=== PATIENT | male | born 1940 | race Caucasian/White ===

== ENCOUNTER 2017-01-10 17:44 | Emergency (ER) | payer MEDICARE, MEDICAID ==
[2017-01-10 17:50] VITALS: BP 126/60
--- NOTE | 2017-01-10 17:57 | UC ---
Back Pain HPI - HPI Summary HPI Summary: 76 YEAR OLD FEMALE PRESENTS WITH COMPLAINS RIGHT UPPER BACK SPASM . - History of Current Complaint Chief Complaint: UCBackPain Stated Complaint: BACK PAIN Time Seen by Provider: 01/10/17 17:52 - Allergies/Home Medications Allergies/Adverse Reactions: Allergies Allergy/AdvReac Type Severity Reaction Status Date / Time No Known Allergies Allergy Verified 02/09/16 18:35 PMH/Surg Hx/FS Hx/Imm Hx - Surgical History Surgical History: Yes Surgery Procedure, Year, and Place: CABGX3 1983. GALLBLADDER SURGERY 1994? [facility] [place]. PACEMAKER 2010 [facility] [place]. TURBT 2011 [facility] [place] - Family History Known Family History: Positive: Cardiac Disease - Social History Alcohol Use: None Substance Use Type: None Smoking Status (MU): Former Smoker Type: Cigarettes Amount Used/How Often: 10 CIGS DAILY X 20 YEARS When Did the Patient Quit Smoking/Using Tobacco: 1979 Review of Systems Constitutional: Negative Skin: Negative Eyes: Negative ENT: Negative Respiratory: Negative Cardiovascular: Negative Gastrointestinal: Negative Genitourinary: Negative Motor: Negative Neurovascular: Negative Musculoskeletal: Myalgia, Other: - RIGHT UPPER BACK SPASM Neurological: Negative Psychological: Negative All Other Systems Reviewed And Are Negative: Yes Physical Exam Triage Information Reviewed: Yes Vital Signs: Initial Vital Signs Temp 36.8 C 01/10/17 17:47 Pulse 70 01/10/17 17:47 Resp 18 01/10/17 17:47 BP 126/60 01/10/17 17:47 Pulse Ox 98 01/10/17 17:47 Eye Exam: Normal ENT Exam: Normal Dental Exam: Normal Neck exam: Normal Neck: Positive: 1 Respiratory Exam: Normal Cardiovascular Exam: Normal Abdominal Exam: Normal Musculoskeletal: Positive: Other: - RIGHT UPPER BACK PAIN Neurological Exam: Normal Psychological Exam: Normal Skin Exam: Normal Back Pain Course/Dx - Differential Dx/Diagnosis Provider Diagnoses: RIGHT UPPER BACK SPASM Discharge - Discharge Plan Condition: Stable Disposition: HOME Prescriptions: Meloxicam [Mobic] 7.5 mg PO BID PC #30 tab Methocarbamol TAB* [Robaxin 500 MG TAB*] 500 mg PO TID PRN #30 tab PRN Reason: Spasms - Back Patient Education Materials: Muscle Spasm (ED) Referrals: Matt Sanchez MD [Primary Care Provider] - If Needed
== END 2017-01-10 18:04 | disposition home or self-care (01) ==
LOC: UCEAST 17:44
DX: M62.830 Muscle spasm of back (principal); Z87.891 Personal history of nicotine dependence
CPT/HCPCS: 99212; G0463

== ENCOUNTER 2017-04-25 02:27 | Emergency (ER) | payer MEDICARE, MEDICAID ==
[2017-04-25 04:01] LABS: Mean Platelet Volume 9 um3 (7.4-10.4)
[2017-04-25 04:04] LABS: Hematocrit 38 % (42-52); Hemoglobin 12.5 g/dl (14.0-18.0); Mean Corpuscular HGB Conc 33 g/dl (31-36); Mean Corpuscular Hemoglobin 30 pg (27-31); Mean Corpuscular Volume 89 fL (80-94); Red Blood Count 4.23 10^6/ul (4.0-5.4); Red Cell Distribution Width 14 % (10.5-15); White Blood Count 5.9 10^3/ul (3.5-10.8)
[2017-04-25 04:05] LABS: Comments Flag Yes
[2017-04-25 04:06] LABS: Add Diff/Slide Review? Slide Review Added
[2017-04-25 04:11] LABS: BUN/Creatinine Ratio 21.2 (8-20); Calcium 9.7 mg/dL (8.6-10.3); EGFR African American 112.7 (>60); EGFR Non-African American 87.6 (>60); Globulin 3.6 g/dL (2-4); Potassium 3.8 mmol/L (3.5-5.0); Total Bilirubin 0.4 mg/dL (0.2-1.0); Total Protein 7.6 g/dL (6.4-8.9)
[2017-04-25 05:12] LABS: Troponin I 0.02 ng/mL (<0.04)
[2017-04-25] MEDS ORDERED: Potassium Chlor TAB* 20 MEQ TAB.ER PO ONE (05:30)
[2017-04-25 06:02] VITALS: BP 155/64
--- NOTE | 2017-04-25 08:25 | RAD ---
HISTORY: Discharging defibrillator COMPARISONS: February 09, 2016 VIEWS: 1: frontal portable view of the chest at 3:15 AM FINDINGS: LINES AND TUBES: A left-sided AICD pacer is noted. CARDIOMEDIASTINAL SILHOUETTE: The cardiomediastinal silhouette is normal for portable technique. PLEURA: The costophrenic angles are sharp. No pleural abnormalities are noted. LUNG PARENCHYMA: The lungs are clear. ABDOMEN: The upper abdomen is clear. There is no subphrenic gas. BONES AND SOFT TISSUES: The patient is status post median sternotomy. IMPRESSION: NO ACTIVE CARDIOPULMONARY DISEASE.
--- NOTE | 2017-05-05 10:48 | ED ---
Beverly Roque Jason, scribed for Romero Britt MD on 04/25/17 at 0300 . Shortness of Breath - HPI Summary HPI Summary: This patient is a 76 year old M BIBA to [facility] with a chief complaint of SOB since 1 hour ago today. The patient reports The pacemaker alarm in my heart went off and I was not feeling well yesterday. My arms felt weak. Rema had this feeling before and its usually associated to problems with the heart. The patient rates the pain 0/10 in severity. Symptoms aggravated by nothing. Symptoms alleviated by nothing. Patient reports generalized weakness, and an alarmed pacemaker. Patient denies ankle swelling, and kidney problems. Additionally, the pt states his pacemaker was placed in August, he has an Hx of DM and takes 30/70 insulin once a day, and his blood sugar is normally 140 or 150. He includes that his alarm has gone off only once around 3 months ago and the doctor advised him to visit [facility] if it alarmed again. Pt speaks little Czech and communicated sx to remote Serbian rn field case manager. - History of Current Complaint Chief Complaint: EDChestPainROMI Time Seen by Provider: 04/25/17 02:40 Hx Obtained From: Patient Onset/Duration: Gradual Onset, Still Present Timing: Constant Aggrevating Factors: Nothing Alleviating Factors: Nothing Associated Signs & Symptoms: Negative - Ankle swelling - Allergy/Home Medications Allergies/Adverse Reactions: Allergies Allergy/AdvReac Type Severity Reaction Status Date / Time No Known Allergies Allergy Verified 02/09/16 18:35 PMH/Surg Hx/FS Hx/Imm Hx Previously Healthy: No Endocrine/Hematology History: Reports: Hx Diabetes, Hx Thyroid Disease - HYPO AFTER RADIATION FOR GRAVES Cardiovascular History: Reports: Hx Coronary Artery Disease - CABGX3 1983, Hx Hypertension, Hx Pacemaker/ICD, Other Cardiovascular Problems/Disorders - PACEMAKER Denies: Hx Angina, Hx Congestive Heart Failure Respiratory History: Denies: Hx Asthma, Hx Chronic Obstructive Pulmonary Disease (COPD) GI History: Reports: Other GI Disorders - ABD. PAIN History: Reports: Other Problems/Disorders - BLADDER CANCER Denies: Hx Renal Disease Sensory History: Reports: Hx Cataracts - BILAT., Hx Contacts or Glasses - GLASSES Denies: Hx Hearing Aid Opthamlomology History: Reports: Hx Cataracts - BILAT., Hx Contacts or Glasses - GLASSES Neurological History: Denies: Hx Dementia, Hx Seizures Psychiatric History: Denies: Hx Anxiety, Hx Depression, Hx Substance Abuse - Cancer History Cancer Type, Location and Year: BLADDER - Surgical History Surgery Procedure, Year, and Place: CABGX3 1983. GALLBLADDER SURGERY 1994? [facility] [place] PACEMAKER 2010 [facility] [place]. TURBT 2012 [facility] [place] Hx Anesthesia Reactions: No - Immunization History Date of Tetanus Vaccine: unk Date of Influenza Vaccine: 2017 Infectious Disease History: Unable to Obtain/Confirm Infectious Disease History: Denies: Hx Hepatitis, Hx Human Immunodeficiency Virus (HIV), History Other Infectious Disease, Traveled Outside the in Last 30 Days - Family History Known Family History: Positive: Cardiac Disease Negative: Blood Disorder - Social History Occupation: Retired Lives: With Family Alcohol Use: None Substance Use Type: Reports: None Smoking Status (MU): Former Smoker Type: Cigarettes Amount Used/How Often: 10 CIGS DAILY X 20 YEARS Review of Systems Positive: Shortness Of Breath Musculoskeletal: Negative - pedal edema Positive: Weakness - Generalized All Other Systems Reviewed And Are Negative: Yes Physical Exam - Summary Physical Exam Summary: Appearance: Well-appearing, Well-nourished Skin: Warm, Dry, No rash Eyes: Normal, PERRL, EOMI, sclera anicteric, Conjunctiva pallor, mild exophthalmos ENT: Normal, no JVD noted Neck: Supple, nontender Respiratory: Clear to auscultation Cardiovascular: S1, S2, no murmur, no rub, no gallop Abdomen: Soft, nontender, no organomegaly Bowel sounds: Present Musculoskeletal: Normal, Strength/ROM Intact, no edema, pulses symmetrical Neurological: Normal, A&Ox3, cranial nerves 2-12 wnl, follows commands, gait not tested, sensation intact to pin and light touch Psychiatric: affect normal, behavior appropriate, dressed appropriately, judgment intact, answers questions fluently in swedish. Triage Information Reviewed: Yes Vital Signs On Initial Exam: Appearance: Well-appearing, Well-nourished Skin: Warm, Dry, No rash Eyes: Normal, PERRL, EOMI, sclera anicteric ENT: Normal Neck: Supple, nontender Respiratory: Clear to auscultation Cardiovascular: S1, S2, no murmur, no rub, no gallop Abdomen: Soft, nontender, no organomegaly Bowel sounds: Present Musculoskeletal: Normal, Strength/ROM Intact, no edema, pulses symmetrical Neurological: Normal, A&Ox3, cranial nerves 2-12 wnl, follows commands, gait not tested, sensation intact to pin and light touch Psychiatric: affect normal, behavior appropriate, dressed appropriately, judgment intact Initial Vitals Temp Pulse Resp BP Pulse Ox 97.5 F 69 16 143/74 97 04/25/17 02:29 04/25/17 02:29 04/25/17 02:29 04/25/17 02:29 04/25/17 02:29 Vital Signs Reviewed: Yes - Parkin Coma Scale Coma Scale Total: 15 Diagnostics - Vital Signs Vital Signs Temp Pulse Resp BP Pulse Ox 04/25/17 02:29 97.5 F 69 16 143/74 97 - Laboratory Lab Results: Lab Results 04/25/17 04/25/17 04/25/17 Range/Units 03:21 03:35 03:35 WBC 5.9 (3.5-10.8) 10^3/ul RBC 4.23 (4.0-5.4) 10^6/ul Hgb 12.5 L (14.0-18.0) g/dl Hct 38 L (42-52) % MCV 89 (80-94) fL MCH 30 (27-31) pg MCHC 33 (31-36) g/dl RDW 14 (10.5-15) % Plt Count 140 L (150-450) 10^3/ul MPV 9 (7.4-10.4) um3 Neut % (Auto) 39.6 (38-83) % Lymph % (Auto) 28.3 (25-47) % Page % (Auto) 29.4 H (1-9) % Eos % (Auto) 1.9 (0-6) % Baso % (Auto) 0.8 (0-2) % Absolute Neuts (auto) 2.3 (1.5-7.7) 10^3/ul Absolute Lymphs (auto) 1.7 (1.0-4.8) 10^3/ul Absolute Monos (auto) 1.7 H (0-0.8) 10^3/ul Absolute Eos (auto) 0.1 (0-0.6) 10^3/ul Absolute Basos (auto) 0 (0-0.2) 10^3/ul Absolute Nucleated RBC 0.01 10^3/ul Nucleated RBC % 0.1 Sodium 138 (133-145) mmol/L Potassium 3.8 (3.5-5.0) mmol/L Chloride 105 (101-111) mmol/L Carbon Dioxide 26 (22-32) mmol/L Anion Gap 7 (2-11) mmol/L BUN 18 (6-24) mg/dL Creatinine 0.85 (0.67-1.17) mg/dL Est GFR ( Amer) 112.7 (>60) Est GFR (Non-Af Amer) 87.6 (>60) BUN/Creatinine Ratio 21.2 H (8-20) Glucose 49 L (70-100) mg/dL POC Glucose (mg/dL) 56 L (70-100) mg/dL Calcium 9.7 (8.6-10.3) mg/dL Total Bilirubin 0.40 (0.2-1.0) mg/dL AST 15 (13-39) U/L ALT 18 (7-52) U/L Alkaline Phosphatase 80 (34-104) U/L Troponin I 0.02 (<0.04) ng/mL Total Protein 7.6 (6.4-8.9) g/dL Albumin 4.0 (3.2-5.2) g/dL Globulin 3.6 (2-4) g/dL Albumin/Globulin Ratio 1.1 (1-3) 04/25/17 Range/Units 05:24 WBC (3.5-10.8) 10^3/ul RBC (4.0-5.4) 10^6/ul Hgb (14.0-18.0) g/dl Hct (42-52) % MCV (80-94) fL MCH (27-31) pg MCHC (31-36) g/dl RDW (10.5-15) % Plt Count (150-450) 10^3/ul MPV (7.4-10.4) um3 Neut % (Auto) (38-83) % Lymph % (Auto) (25-47) % Page % (Auto) (1-9) % Eos % (Auto) (0-6) % Baso % (Auto) (0-2) % Absolute Neuts (auto) (1.5-7.7) 10^3/ul Absolute Lymphs (auto) (1.0-4.8) 10^3/ul Absolute Monos (auto) (0-0.8) 10^3/ul Absolute Eos (auto) (0-0.6) 10^3/ul Absolute Basos (auto) (0-0.2) 10^3/ul Absolute Nucleated RBC 10^3/ul Nucleated RBC % Sodium (133-145) mmol/L Potassium (3.5-5.0) mmol/L Chloride (101-111) mmol/L Carbon Dioxide (22-32) mmol/L Anion Gap (2-11) mmol/L BUN (6-24) mg/dL Creatinine (0.67-1.17) mg/dL Est GFR ( Amer) (>60) Est GFR (Non-Af Amer) (>60) BUN/Creatinine Ratio (8-20) Glucose (70-100) mg/dL POC Glucose (mg/dL) 202 H (70-100) mg/dL Calcium (8.6-10.3) mg/dL Total Bilirubin (0.2-1.0) mg/dL AST (13-39) U/L ALT (7-52) U/L Alkaline Phosphatase (34-104) U/L Troponin I (<0.04) ng/mL Total Protein (6.4-8.9) g/dL Albumin (3.2-5.2) g/dL Globulin (2-4) g/dL Albumin/Globulin Ratio (1-3) Result Diagrams: 04/25/17 03:35 04/25/17 03:35 Lab Statement: Any lab studies that have been ordered have been reviewed, and results considered in the medical decision making process. - Radiology CXR Radiology Interpretation Completed By: ED Physician - no significant findings. - EKG 0237 Cardiac Rate: NL EKG Rhythm: Sinus Rhythm - [address] Segment: Normal Ectopy: None EKG Interpretation: paced rhythm Course/Dx - Course Course Of Treatment: This patient is a 76 year old M BIBA to [facility] with a chief complaint of SOB since 1 hour ago today. The patient reports The pacemaker alarm in my heart went off and I was not feeling well yesterday. My arms felt weak. Rema had this feeling before and its usually associated to problems with the heart. The patient rates the pain 0/10 in severity. Symptoms aggravated by nothing. Symptoms alleviated by nothing. Patient reports generalized weakness, and an alarmed pacemaker. Patient denies ankle swelling, and kidney problems. Additionally, the pt states his pacemaker was placed in August, he has an Hx of DM and takes 30/70 insulin once a day, and his blood sugar is normally 140 or 150. He includes that his alarm has gone off only once around 3 months ago and the doctor advised him to visit [facility] if it alarmed again. Pt speaks little Czech and communicated sx to remote Serbian rn field case manager. Assessment/Plan: In the ED course the patient was given Potassium Chloride tab. The pt. has hx of recurrent ventricular tachycardia and the pacemaker is functioning normally, with the alarm secondary to adequate transmission. We spoke with [employer], who makes the pacemaker, and they said an alarm went off at 0130 signaling ventricular tachycardia but the pacemaker is working normally. An EKG reveals cardiac rate of 70 bpm and a paced rhythm. CXR reveals no significant findings. Patient will be discharged and follow up with PCP. The patient is agreeable with this plan. Dx of hypoglycemia. - Diagnoses Provider Diagnoses: ICD (implantable cardioverter-defibrillator) discharge Discharge - Discharge Plan Condition: Good Disposition: HOME Patient Education Materials: Hypoglycemia in a Person with Diabetes (ED) Referrals: Matt Sanchez MD [Primary Care Provider] - Additional Instructions: ad zain The documentation as recorded by the Beverly etienne Jason accurately reflects the service I personally performed and the decisions made by me, Romero Britt MD.
== END 2017-04-25 06:28 | disposition home or self-care (01) ==
LOC: ED 02:27
DX: T82.198A Other mechanical complication of other cardiac electronic device, initial encounter (principal); R06.02 Shortness of breath; R53.1 Weakness; Z87.891 Personal history of nicotine dependence
CPT/HCPCS: 36415; 71010; 80053; 84484; 85025; 93005; 99283; A9270-GY

== ENCOUNTER 2018-07-04 18:01 | Observation (INO) | payer MEDICARE, MEDICAID ==
[2018-07-04] MEDS ORDERED: Aspirin 81 mg CHEW TAB* 81 MG TAB.CHEW PO ONE (18:23)
[2018-07-04] MEDS ORDERED: Nitroglycerin TAB 0.4 MG* 0.4 MG TAB SL ONE (18:57)
--- NOTE | 2018-07-04 19:25 | ED ---
HPI Chest Pain - HPI Summary HPI Summary: Patient complains of left-sided chest pain radiating to back and left shoulder starting yesterday. He describes pain as constant, new onset, occurring at rest. Denies symptoms with exertion. Originally 9/10 pain, currently 4/10 pain. Patient denies fever, cough, SOB, N/V/D, abdominal pain, change in urine , change in BM. Medical history is DM, CHF, PR, defibrillator, cardiac bypass surgery, pacemaker, HTN, thyroid cancer, BPH, GERD. Patient product marketing director Dr. Rivas, last evaluated around 3 months ago. Patient does not know when last stress test was. No stress test on file. - History of Current Complaint Chief Complaint: EDChestPainROMI Time Seen by Provider: 07/04/18 18:18 Hx Obtained From: Patient Onset/Duration: Started Days Ago Timing: Constant Initial Severity: Severe Current Severity: Moderate Pain Intensity: 4 Pain Scale Used: 0-10 Numeric Chest Pain Location: Left Anterior Chest Pain Radiates: Yes Chest Pain Radiates To:: Back, Shoulder Aggravating Factor(s): Nothing Alleviating Factor(s): Nothing Associated Signs and Symptoms: Positive: Chest Pain, Back Pain - Allergy/Home Medications Allergies/Adverse Reactions: Allergies Allergy/AdvReac Type Severity Reaction Status Date / Time No Known Allergies Allergy Verified 02/09/16 18:35 PMH/Surg Hx/FS Hx/Imm Hx Endocrine/Hematology History: Reports: Hx Diabetes, Hx Thyroid Disease - HYPO AFTER RADIATION FOR GRAVES Cardiovascular History: Reports: Hx Coronary Artery Disease - CABGX3 1983, Hx Hypertension, Hx Pacemaker/ICD, Other Cardiovascular Problems/Disorders - PACEMAKER Denies: Hx Angina, Hx Congestive Heart Failure Respiratory History: Denies: Hx Asthma, Hx Chronic Obstructive Pulmonary Disease (COPD) GI History: Reports: Other GI Disorders - ABD. PAIN History: Reports: Other Problems/Disorders - BLADDER CANCER Denies: Hx Renal Disease Sensory History: Reports: Hx Cataracts - BILAT., Hx Contacts or Glasses - GLASSES Denies: Hx Hearing Aid Opthamlomology History: Reports: Hx Cataracts - BILAT., Hx Contacts or Glasses - GLASSES Neurological History: Denies: Hx Dementia, Hx Seizures Psychiatric History: Denies: Hx Anxiety, Hx Depression, Hx Substance Abuse - Cancer History Cancer Type, Location and Year: BLADDER - Surgical History Surgery Procedure, Year, and Place: CABGX3 1983. GALLBLADDER SURGERY 1994? [facility] [place]. PACEMAKER 2010 [facility] [place]. TURBT 2012 [facility] [place] Hx Anesthesia Reactions: No - Immunization History Date of Tetanus Vaccine: unk Date of Influenza Vaccine: 2016 Infectious Disease History: No Infectious Disease History: Denies: Hx Hepatitis, Hx Human Immunodeficiency Virus (HIV), History Other Infectious Disease, Traveled Outside the [place] in Last 30 Days - Family History Known Family History: Positive: Cardiac Disease Negative: Blood Disorder - Social History Alcohol Use: None Substance Use Type: Reports: None Smoking Status (MU): Former Smoker Type: Cigarettes Amount Used/How Often: 10 CIGS DAILY X 20 YEARS Review of Systems Constitutional: Negative Positive: Photophobia ENT: Negative Positive: Chest Pain Respiratory: Negative Gastrointestinal: Negative Genitourinary: Negative Musculoskeletal: Negative Skin: Negative Neurological: Negative Psychological: Normal All Other Systems Reviewed And Are Negative: Yes Physical Exam - Summary Physical Exam Summary: Chest pain nonreproducible. Triage Information Reviewed: Yes Vital Signs On Initial Exam: Initial Vitals Temp Pulse Resp BP Pulse Ox 97.7 F 70 16 153/75 97 07/04/18 18:09 07/04/18 18:09 07/04/18 18:09 07/04/18 18:09 07/04/18 18:09 Vital Signs Reviewed: Yes Appearance: Positive: Well-Appearing Skin: Positive: Warm Head/Face: Positive: Normal Head/Face Inspection Eyes: Positive: Normal Neck: Positive: Supple Respiratory/Lung Sounds: Positive: Clear to Auscultation Cardiovascular: Positive: Normal Abdomen Description: Positive: Nontender Musculoskeletal: Positive: Normal Neurological: Positive: Normal Psychiatric: Positive: Normal AVPU Assessment: Alert - Phil Coma Scale Best Eye Response: 4 - Spontaneous Best Motor Response: 6 - Obeys Commands Best Verbal Response: 5 - Oriented Coma Scale Total: 15 Diagnostics - Vital Signs Vital Signs Temp Pulse Resp BP Pulse Ox 07/04/18 18:10 70 96 07/04/18 18:09 97.7 F 71 16 153/75 97 - Laboratory Result Diagrams: 07/04/18 19:51 07/04/18 19:51 Lab Statement: Any lab studies that have been ordered have been reviewed, and results considered in the medical decision making process. Chest Pain Course/Dx - Course Course Of Treatment: Patient complains of left-sided chest pain radiating to back and left shoulder starting yesterday. He describes pain as constant, new onset, occurring at rest. Denies symptoms with exertion. Originally 9/10 pain , currently 4/10 pain. Patient denies fever, cough, SOB, N/V/D, abdominal pain , change in urine, change in BM. Medical history is DM, CHF, PR, defibrillator , cardiac bypass surgery, pacemaker, HTN, thyroid cancer, BPH, GERD. Patient product marketing director Dr. Rivas, last evaluated around 3 months ago. Patient does not know when last stress test was. No stress test on file. Physical exam: Chest pain not reproducible. Vital signs within normal limits. EKG paced rhythm. Chest x-ray unremarkable. Labs unremarkable. Serial troponins negative. CTA chest negative. Chest pain self resolved. Heart score 4. Will be admitted to hospitalist. - Diagnoses Provider Diagnoses: Chest pain Discharge - Sign-Out/Discharge Documenting (check all that apply): Patient Departure - Discharge Plan Condition: Stable Disposition: ADMITTED TO [facility] - Billing Disposition and Condition Condition: STABLE Disposition: Admitted to [facility]
[2018-07-04 20:01] LABS: Hematocrit 37 % (42-52); Hemoglobin 12.1 g/dl (14.0-18.0); Mean Corpuscular HGB Conc 33 g/dl (31-36); Mean Corpuscular Hemoglobin 30 pg (27-31); Mean Corpuscular Volume 89 fL (80-94); Mean Platelet Volume 8.9 fL (7.4-10.4); Platelet Count 112 10^3/ul (150-450); Red Blood Count 4.11 10^6/ul (4.00-5.40); Red Cell Distribution Width 14 % (10.5-15)
[2018-07-04 20:16] LABS: Activated Partial Thrombo Time 33.3 seconds (26.0-36.3); INR 1.15 (0.77-1.02)
[2018-07-04 20:20] LABS: Albumin 3.8 g/dL (3.2-5.2); BUN/Creatinine Ratio 30.4 (8-20); Calcium 9.6 mg/dL (8.6-10.3); EGFR Non-African American 79.8 (>60); Globulin 3.7 g/dL (2-4); Magnesium 2.1 mg/dL (1.9-2.7); Potassium 4.3 mmol/L (3.5-5.0); Total Bilirubin 0.4 mg/dL (0.2-1.0); Total Protein 7.5 g/dL (6.4-8.9)
[2018-07-04] MEDS ORDERED: Iodixanol* (CONTRAST) 320 MG/ML 100 ML SDV IV ONE (20:28)
[2018-07-04 20:59] LABS: ABS Basophils 0 10^3/ul (0-0.2); ABS Eosinophils 0.1 10^3/ul (0-0.6); ABS Lymphocytes 1.6 10^3/ul (1.0-4.8); ABS Monocytes 2.1 10^3/ul (0-0.8); ABS Neutrophils 2.2 10^3/ul (1.5-7.7); ABS Nucleated RBC 0 10^3/ul; Eosinophil % 1.5 %; Lymphocyte % 27.1 %; Nucleated Red Blood Cells % 0.1
[2018-07-04 21:05] LABS: TSH (Thyroid Stimulating Horm) 1.28 mcIU/mL (0.34-5.60)
[2018-07-05] MEDS ORDERED: Nitroglycerin TAB 0.4 MG* 0.4 MG TAB SL PRN (00:57)
[2018-07-05] MEDS ORDERED: INSULIN REGULAR SUBCUT SCH (01:00)
[2018-07-05] MEDS ORDERED: INSULIN ISOPHANE SUBCUT SCH (01:00)
--- NOTE | 2018-07-05 01:07 | ADMNOTE ---
Subjective Date of Service: 07/05/18 Interval History: 77 year old Male with past medical history of coronary artery disease with CABG , pacemaker, Diabetes, who now comes to the emergency room because of chest pain. Chest pain started more than 24 hours ago, described as substernal dull ache, 4/10. It started at rest, with no exacerbating or relieving factors. Pain went away on its own. There is no associated diaphoresis, no shortness of breath , no palpitatons. No fever, no cough. Family History: Findings - Heart disease in multiple members Social History: Findings - Lives at home, does not drink alcohol, former smoker Past Medical History: Findings - Coronary arterey disease with CABG, pacemaker, Diabetes, Hypothyroidism, Surgeries include CABG, cholecystecotmy, eye surgery Review of Systems - Measurements Intake and Output: Intake and Output Last 24 Hours 07/02/18 07/03/18 07/04/18 07/05/18 06:59 06:59 06:59 06:59 Weight 165 lb - Review of Systems Constitutional Symptoms: Negative: Fatigue, Fever, Night Sweats HEENT: Negative: Change in Hearing, Dental Problems Eyes: Negative: Change in Vision, Double Vision Thyroid: Positive: Normal Pulmonary: Negative: Cough, Sputum, Wheezing, Shortness of Breath Cardiology: Positive: Chest Pain Negative: Palpitations, Edema, Syncope Gastroenterology: Negative: Abdominal Pain, Nausea, Vomiting Genital - Urinary: Negative: Dysuria, Hematuria Genitourinary - Male: Positive: Prostatism Endocrinology: Negative: Polydipsia, Polyuria Hematologic/Lymphatic: Negative: Easy Brusing Neurology: Negative: Headache, Migraines, Change in Vision Psychiatry: Negative: Depression, Depressed Mood Objective Active Medications: Aspirin (Aspirin 81 Mg Chew Tab*) 81 mg PO DAILY [facility] Atorvastatin Calcium (Lipitor*) 20 mg PO DAILY [facility] Carvedilol (Coreg Tab*) 25 mg PO BID [facility] Enoxaparin Sodium (Lovenox(*)) 40 mg SUBCUT Q24H [facility] Finasteride (Proscar Tab*) 5 mg PO DAILY [facility] Losartan Potassium (Cozaar Tab*) 25 mg PO DAILY [facility] Nitroglycerin (Nitroglycerin Tab 0.4 Mg*) 0.4 mg SL Q5M PRN PRN Reason: PAIN Non-Formulary Medication (Famotidine [Pepcid]) 40 mg PO BID [facility] Non-Formulary Medication (Insulin Isophane&Reg 70/30(*) [Novolin 70/30(*)]) 40 units SUBCUT SEE INSTRUCTIONS [facility] Non-Formulary Medication (Levothyroxine Sodium [Levothyroxine Sodium]) 112 mcg PO QAM [facility] Tamsulosin HCl (Flomax Cap*) 0.4 mg PO DAILY [facility] Vital Signs - 8 hr 07/04/18 07/04/18 07/04/18 18:09 18:10 18:39 Temperature 97.7 F Pulse Rate 71 70 Respiratory 16 15 Rate Blood Pressure 153/75 142/76 (mmHg) O2 Sat by Pulse 97 96 Oximetry 07/04/18 07/04/18 07/04/18 19:00 19:10 19:40 Temperature Pulse Rate Respiratory 23 31 20 Rate Blood Pressure 134/82 144/102 (mmHg) O2 Sat by Pulse Oximetry 07/04/18 07/04/18 07/04/18 20:00 20:09 21:00 Temperature Pulse Rate 70 Respiratory 23 23 20 Rate Blood Pressure 142/96 (mmHg) O2 Sat by Pulse 98 Oximetry 07/04/18 07/04/18 07/04/18 21:10 21:40 22:00 Temperature Pulse Rate 70 70 70 Respiratory 14 18 16 Rate Blood Pressure 150/81 148/87 (mmHg) O2 Sat by Pulse 97 98 98 Oximetry 07/04/18 07/04/18 07/04/18 22:10 22:23 22:40 Temperature Pulse Rate 70 70 70 Respiratory 22 15 15 Rate Blood Pressure 141/83 148/83 (mmHg) O2 Sat by Pulse 97 97 97 Oximetry 07/04/18 07/04/18 07/04/18 23:00 23:10 23:40 Temperature Pulse Rate 67 70 Respiratory 21 19 23 Rate Blood Pressure 142/76 154/88 (mmHg) O2 Sat by Pulse 96 96 Oximetry 07/05/18 07/05/18 07/05/18 00:00 00:10 00:40 Temperature Pulse Rate 70 70 Respiratory 17 18 20 Rate Blood Pressure 149/80 142/82 (mmHg) O2 Sat by Pulse 98 98 Oximetry Oxygen Devices in Use Now: None Appearance: Elderly male lying in ED stretcher, not in distress Eyes: PERRLA - no nystagmus Ears/Nose/Mouth/Throat: Mucous Membranes Moist Respiratory: Clear to Auscultation - no wheezing/rales/rhonchi Cardiovascular: NL Sounds; No Murmurs; No JVD, RRR, No Edema, - - sternal scar noted, no chest wall tenderness Extremities: No Edema Neurological: Alert and Oriented x 3 Result Diagrams: 07/04/18 19:51 07/04/18 19:51 Diagnostic Imaging: EXAM: CT Angiography Chest With Contrast EXAM DATE/TIME: 07/04/2018 8:40 PM IMPRESSION: 1. There is bilateral mild subsegmental atelectasis or parenchymal scarring but the lungs and pleural spaces appear otherwise clear. 2. No visible acute pulmonary embolism. 3. No aortic dissection. To contact [facility] with a general question: [facility] - [phone] This report is only to be considered final once signed by the Provider(s) as displayed in the "<Electronically Signed by >" field (s). Absence of a signature indicates the report is in a draft status and still needs to be finalized. In the event this document was created by someone other than the signing Provider, the individual initiating the document will be listed in the "Entered by:" or "Dictated by:" [email or web address]. 1 of 2 EKG Data: paced rhythm Assess/Plan/Problems-Billing Assessment: 77 year old Male with history of cornoary artery disease with CABG, pacemaker, Diabetes here with chest pain. - Patient Problems (1) Chest pain Current Visit: Yes Status: Acute Code(s): R07.9 - CHEST PAIN, UNSPECIFIED SNOMED Code(s): 87981487 Comment: Chest pain with negative troponin X 2, EKG no acute ST-T changes. However high risk patient, will get ECHO, EKG in the AM, and 3rd troponin. continue statin, daily aspirin. (2) Diabetes Current Visit: Yes Status: Chronic Code(s): E11.9 - TYPE 2 DIABETES MELLITUS WITHOUT COMPLICATIONS SNOMED Code(s): 13073607 Comment: Continue home dose 70/30 at 40 units in the AM monitor fingersticks. (3) Hypothyroid Current Visit: Yes Status: Chronic Code(s): E03.9 - HYPOTHYROIDISM, UNSPECIFIED SNOMED Code(s): 04182984 Comment: continue levothyroxine (4) Sleep apnea Current Visit: Yes Status: Chronic Code(s): G47.30 - SLEEP APNEA, UNSPECIFIED SNOMED Code(s): 73767237 Comment: CPAP at 10, (5) BPH (benign prostatic hyperplasia) Current Visit: Yes Status: Chronic Code(s): N40.0 - BENIGN PROSTATIC HYPERPLASIA WITHOUT LOWER URINRY TRACT SYMP SNOMED Code(s): 604881273 Comment: continue flomax and finasteride (6) DVT prophylaxis Current Visit: Yes Status: Acute Code(s): WVW4033 - SNOMED Code(s): 874348200 Comment: SCD, Platelets 112, and patients needs aspirin for chest pain/hx of CAD Medications/Allergies Medications: Home Medications Medication Instructions Recorded Confirmed Type Finasteride TAB* [Proscar TAB*] 5 mg PO DAILY 06/18/12 07/04/18 History Insulin ISOPHANE&REG 70/30(*) 40 units SUBCUT SEE INSTRUCTIONS 06/18/12 History [Novolin 70/30(*)] Losartan TAB* [Cozaar TAB*] 25 mg PO DAILY 06/18/12 07/04/18 History Nitroglycerin TAB 0.4 MG* 0.4 mg SL Q5M PRN 06/18/12 07/04/18 History Tamsulosin CAP* [Flomax CAP*] 0.4 mg PO DAILY 06/18/12 07/04/18 History Carvedilol TAB* [Coreg TAB*] 25 mg PO BID 10/24/12 07/04/18 History Famotidine [Pepcid] 40 mg PO BID 05/24/14 07/04/18 History Levothyroxine Sodium 112 mcg PO QAM 05/24/14 07/04/18 History Atorvastatin* [Lipitor 20 MG*] 20 mg PO DAILY 11/07/15 07/04/18 History Allergies/Adverse Reactions: Allergies Allergy/AdvReac Type Severity Reaction Status Date / Time No Known Allergies Allergy Verified 02/09/16 18:35
[2018-07-05 02:45] LABS: Urine Color Yellow
[2018-07-05 02:46] LABS: Urine Appearance Clear
[2018-07-05 02:49] LABS: Urine Ketones Negative (Negative); Urine Urobilinogen Negative (Negative)
[2018-07-05 02:50] LABS: Urine Protein Negative (Negative)
[2018-07-05 02:51] LABS: Urine Blood Negative (Negative)
[2018-07-05 02:52] LABS: Urine Bilirubin Negative (Negative); Urine Glucose 1+(50 mg/dL) (Negative); Urine Nitrite Negative (Negative)
[2018-07-05] MEDS ORDERED: Levothyroxine TAB* 112 MCG TAB PO SCH (06:00)
[2018-07-05] MEDS ORDERED: Insulin ISOPH/REG 70/30 (*) 1 UNITS UNIT SUBCUT SCH (08:30)
[2018-07-05] MEDS ORDERED: Finasteride TAB* 5 MG PO SCH (09:00)
[2018-07-05] MEDS ORDERED: FAMOTIDINE 40 MG PO SCH (09:00)
[2018-07-05] MEDS ORDERED: Famotidine TAB* 20 MG PO SCH (09:00)
[2018-07-05] MEDS ORDERED: Losartan TAB* 25 MG PO SCH (09:00)
[2018-07-05] MEDS ORDERED: Aspirin 81 mg CHEW TAB* 81 MG TAB.CHEW PO SCH (09:00)
[2018-07-05] MEDS ORDERED: Enoxaparin(*) 40 MG/0.4 ML SYR SUBCUT SCH (09:00)
[2018-07-05] MEDS ORDERED: Carvedilol TAB* 25 MG PO SCH (09:00)
[2018-07-05] MEDS ORDERED: Tamsulosin CAP* 0.4 MG PO SCH (09:00)
[2018-07-05] MEDS ORDERED: Atorvastatin* 20 MG TAB PO SCH (09:00)
[2018-07-05] MEDS ORDERED: Dextrose 50% Syringe 50 ML* 25 GM/50 ML SYRINGE IV PUSH PRN (12:11)
[2018-07-05] MEDS ORDERED: Insulin LISPRO* 1 UNITS UNIT SUBCUT ONE (12:11)
[2018-07-05 12:15] VITALS: BP 120/55
--- NOTE | 2018-07-05 14:34 | ECHO ---
Patient: NESS ALTAMIRANO [facility] Rec#: [id number] : 1940 Date: 07/05/2018 Age: 77y Height: 165 cm / 65.0 in Weight: 74.8 kg / 164.9 lbs Sex: M BSA: 1.82 Room#: [facility] Admit Date#: 07/05/2018 Type: Inpatient Referring: Ivone Rubio Reading: Eyal Almonte MD Curtain Supervisor: Kay Hernandez RDCS CC: Matt Sanchez MD Transthoracic Echocardiogram Indication: Chest pain BP: 130/63 HR: 70 Rhythm: Paced Findings History: DM, CHF, [place], s/p AICD, s/p CABG 1983, HTN, thyroid cancer, former smoker. Technical Comments: The study quality is fair. Completed at 1100. Left Ventricle: The left ventricular chamber size is normal. Mild to moderate concentric left ventricular hypertrophy is observed. There are multiple regional wall motion abnormalities. There is moderate to severely decreased left ventricular systolic function. The estimated ejection fraction is 30-35%. Post surgical hypokinesis of the interventricular septum is observed consistent with coronary artery bypass. Abnormal left ventricular diastolic function is observed. Left Atrium: The left atrium is mildly dilated. Right Ventricle: Moderator Band present. The right ventricle is mildly dilated. The right ventricular global systolic function is low normal. A pacemaker wire is visualized in the right ventricle. Right Atrium: The right atrium is mild to moderately dilated. A pacemaker wire is visualized in the right atrium. Aortic Valve: The aortic valve is trileaflet. Mild aortic leaflet calcification is visualized. Systolic excursion of the aortic valve cusps is reduced. There is a trace of aortic regurgitation. There is borderline aortic stenosis present. The mean gradient of the aortic valve is 3 mmHg. The peak instantaneous gradient of the aortic valve is 7 mmHg. The aortic valve area, by peak velocities, is calculated at 2 cm2. The aortic valve area, by VTI's, is calculated at 1.8 cm2. Mitral Valve: There is mitral annular calcification. The mitral valve leaflets are mildly thickened. There is trace to mild mitral regurgitation. There is no evidence of mitral stenosis. Tricuspid Valve: The tricuspid valve leaflets are normal. There is trace to mild tricuspid regurgitation. Unable to estimate the right ventricular systolic pressure. There is no tricuspid stenosis. Pulmonic Valve: The pulmonic valve appears normal. There is trace to mild pulmonic regurgitation. There is no pulmonic stenosis. Pericardium: There is no significant pericardial effusion. Aorta: There is mild dilatation of the ascending aorta. There is no dilatation of the aortic arch. There is mild dilatation of the aortic root. Pulmonary Artery: The main pulmonary artery appears normal. Venous: The inferior vena cava appears normal in size. There is a greater than 50% respiratory change in the inferior vena cava dimension. Conclusions Mild to moderate concentric left ventricular hypertrophy is observed. There are multiple regional wall motion abnormalities. There is moderate to severely decreased left ventricular systolic function. The estimated ejection fraction is 30-35%. Post surgical hypokinesis of the interventricular septum is observed consistent with coronary artery bypass. The right ventricular global systolic function is low normal. A pacemaker wire is visualized in the right ventricle. A pacemaker wire is visualized in the right atrium. Systolic excursion of the aortic valve cusps is reduced. There is borderline aortic stenosis present. The mean gradient of the aortic valve is 3 mmHg. There is a trace of aortic regurgitation. There is trace to mild mitral regurgitation. There is trace to mild tricuspid regurgitation. Unable to estimate the right ventricular systolic pressure. There is no significant pericardial effusion. Measurements Name Value Normal Range RVIDd (AP) 2D 3.2 cm (0.9 - 2.6) RVDdMajor (2D) 4.8 cm (2.2 - 4.4) RAd ISD 4CH 5.5 cm (3.4 - 4.9) RA (A4C)W 4.2 cm (2.9 - 4.6) IVSd (2D) 1.3 cm (0.6 - 1) LVPWd (2D) 1.3 cm (0.6 - 1) LVIDd (2D) 4.8 cm (3.6 - 5.4) LVIDs (2D) 3.9 cm - LV FS (2D) 19 % (25 - 45) Aortic Annulus 2.2 cm (1.4 - 2.6) Ao root diameter (2D) 3.7 cm (2.1 - 3.5) Ascending Ao 3.8 cm (2.1 - 3.4) Aortic arch 2.9 cm (1.8 - 3.4) LA dimension (AP) 2D 3.9 cm (2.3 - 3.8) LAd ISD 4CH 5 cm (2.9 - 5.3) LA ISD 4CH W 4.9 cm (2.5 - 4.5) Name Value Normal Range LA ESV BP (A/L) index 38 ml/m2 - Name Value Normal Range MV E-wave Vmax 0.6 m/sec - MV deceleration time 324 msec - MV A-wave Vmax 0.8 m/sec - MV E:A ratio 0.8 ratio - LV septal e' Vmax 0.05 m/sec - LV lateral e' Vmax 0.07 m/sec - LV E:e' septal ratio 12 ratio - LV E:e' lateral ratio 8.6 ratio - Name Value Normal Range AV Vmax 1.4 m/sec - AV VTI 29 cm - AV peak gradient 7 mmHg - AV mean gradient 3 mmHg - LVOT diameter 2.1 cm - LVOT Vmax 0.8 m/sec - LVOT VTI 15 cm - LVOT peak gradient 2 mmHg - LVOT mean gradient 1 mmHg - DOI (VTI) 0.52 ratio - ENMA (continuity Vmax) 2 cm2 - ENMA (continuity VTI) 1.8 cm2 - WAI Vmax 0.7 m/sec - Name Value Normal Range IVC diameter 2 cm - Name Value Normal Range PV Vmax 1 m/sec - PV peak gradient 4 mmHg -
--- NOTE | 2018-07-05 20:01 | CONS ---
CARDIOLOGY CONSULTATION: DATE OF CONSULT: 07/05/18 INDICATION FOR CONSULTATION: Chest pain, ischemic cardiomyopathy. HISTORY OF PRESENT ILLNESS: The patient is a 77-year-old gentleman with a history of ischemic cardiomyopathy, coronary artery disease, ventricular tachycardia, biventricular ICD, paroxysmal atrial fibrillation. The patient was brought to the emergency room last night because of chest pain. The patient has poor Spanish skills. He speaks mostly [place]. By report, he has been having chest pain for 24 hours prior to admission, reportedly described as center of his chest that did not radiate anywhere. He denied any orthopnea or PND. The patient was admitted to the hospital. He ruled out for a myocardial infarction. In speaking with the patient today, he really has no specific complaints. He denies any current chest pain. He denies any shortness of breath. He has been taking his medications appropriately. PAST MEDICAL HISTORY: Significant for coronary artery disease, coronary artery bypass surgery in 1983, history of ischemic and nonischemic cardiomyopathy, biventricular ICD, paroxysmal atrial fibrillation, hypothyroidism. OUTPATIENT MEDICATIONS: 1. Coreg 25 mg daily. 2. Finasteride 5 mg a day. 3. Tamsulosin 0.4 mg a day. 4. Losartan 25 mg a day. 5. Aspirin 81 mg a day. 6. Atorvastatin 20 mg a day. 7. Levothyroxine 112 mcg a day. 8. Insulin as directed. 9. Famotidine 40 mg a day. ALLERGIES: No known drug allergies. FAMILY HISTORY: Difficult to obtain. SOCIAL HISTORY: He lives with his . He denies any tobacco or alcohol use. REVIEW OF SYSTEMS: Negative for fevers and chills. Negative for changes in bowel or bladder habits. Negative for change in weight. Other 12-point review is unremarkable. PHYSICAL EXAM: Vital Signs: Height is 5 feet 5 inches, weight is 167 pounds, temperature 97.7, heart rate is 70, blood pressure 120/55, respiratory rate is 16, oxygen saturation 97% on room air. Sclerae anicteric. Oropharynx is pink without erythema. Carotids are 2+ without bruits. JVD is normal. Thyroid is normal. Cardiac Exam: S1, S2, without any murmurs, rubs, or gallops. PMI is normal. Lungs are clear to auscultation. Extremities: Show 1+ edema. He has 2 + pulses throughout. The patient is awake, alert, and oriented. DIAGNOSTIC STUDIES/LAB DATA: His echocardiogram today demonstrates moderately to severely diffuse LV systolic function. EF 30% to 35%. No focal wall motion abnormalities. He does have mild aortic stenosis, mild mitral regurgitation, mild tricuspid regurgitation, unable to estimate PA systolic pressures. Laboratory Studies: CBC within normal limits. Chemistries within normal limits. Troponins are negative x3. TSH is normal at 1.28. EKG demonstrates ventricularly paced. IMPRESSION: This is a 77-year-old gentleman, who is admitted to the hospital with atypical chest pain. He is ruled out for a myocardial infarction. His echocardiogram is essentially unchanged. His laboratory studies are stable. This morning, he has no complaints. At this point, I am not convinced there is any significant change in his cardiac status. RECOMMENDATIONS: It is my recommendation the patient be discharged home. The patient will continue his outpatient medications. The patient will follow up with Dr. Rivas as an outpatient. [id number]/[facility] #: [id number] MTDD
--- NOTE | 2018-07-05 21:25 | DS ---
CC: Dr. Almonte; Dr. Rivas; Dr. Sanchez * DISCHARGE SUMMARY: DATE OF ADMISSION: 07/05/18 DATE OF DISCHARGE: 07/05/18 PRIMARY CARE PROVIDER: Dr. Sanchez. DISCHARGE DIAGNOSES: Chest pain, likely noncardiac origin with negative troponins throughout the patient's hospital stay. The patient also had CT angiogram of the chest, which showed no aortic dissection and no visible acute pulmonary embolism. PAST MEDICAL HISTORY: For past medical history, please note the history and physical noted at admission on 07/05/18. MEDICATIONS AT DISCHARGE: Unchanged from admission and include: 1. Flomax 0.4 mg daily. 2. Nitroglycerin on a p.r.n. basis. 3. Losartan 25 mg daily. 4. Levothyroxine 112 mcg daily. 5. Insulin 70/30, 40 units twice a day. 6. Proscar 5 mg daily. 7. Pepcid 40 mg b.i.d. 8. Coreg 25 mg b.i.d. 9. Lipitor 20 mg daily. LABORATORY DATA DURING THE HOSPITAL STAY: Included troponins had been 0.01 throughout the patient's hospital stay. Transthoracic echocardiogram obtained, on 07/05/18, showed [id number] concentric LVH with multiple regional wall motion abnormalities with moderate to severely decreased left ventricular systolic function with EF of 30% to 35%. There was post surgical hypokinesis of the interventricular septum consistent with coronary artery bypass grafting. Pacemaker wire was visualized in the right ventricle and right atrium. There was borderline aortic stenosis. CONSULTATIONS DURING THE HOSPITAL STAY: Included Dr. Almonte from Cardiology. HOSPITALIZATION COURSE: Steven Frias is a 77-year-old male with a history of ischemic cardiomyopathy, coronary artery bypass grafting, status post pacemaker insertion, who presented to the hospital complaining of some nonspecific chest pain. For further details of the patient's presentation, please see history and physical dictated by Dr. Rubio. Shortly by the time of discharge, the patient's pain resolved. The patient's troponins continued to be negative and he was seen by Dr. Almonte from Cardiology, who recommended for the patient to be okayed to be discharged home and follow up with Dr. Rivas as outpatient. The patient's transthoracic echocardiogram showed the baseline EF of 30% to 35%, which is known for this patient. Once again, the patient was chest pain free at the time of discharge. He is going to be discharged home. Recommendations were to follow up with Dr. Rivas in approximately 1 to 2 weeks and his primary care provider in 4 to 7 days. Physical exam at discharge is unchanged from admission. [id number]/[facility] #: [id number] SCOTTY
== END 2018-07-05 14:55 | disposition home or self-care (01) ==
LOC: ED 18:01 → MEDTELE 07-05 01:00
PROVIDERS: ADMIT Internal Medicine; ATTEND Internal Medicine
DX: R07.9 Chest pain, unspecified (principal); M54.9 Dorsalgia, unspecified; E11.9 Type 2 diabetes mellitus without complications; I25.2 Old myocardial infarction; Z95.0 Presence of cardiac pacemaker; I10 Essential (primary) hypertension; N40.0 Benign prostatic hyperplasia without lower urinary tract symptoms; K21.9 Gastro-esophageal reflux disease without esophagitis; Z85.850 Personal history of malignant neoplasm of thyroid; I25.10 Atherosclerotic heart disease of native coronary artery without angina pectoris; Z95.5 Presence of coronary angioplasty implant and graft; Z87.891 Personal history of nicotine dependence; Z79.82 Long term (current) use of aspirin
CPT/HCPCS: 36415; 71045; 71275; 80053; 81003; 83605; 83735; 83880; 84443; 84484; 85025; 85060; 85610; 85730; 93005; 93306; 99285; A9270-GY; G0378; J1815; Q9967

== ENCOUNTER 2018-09-13 11:22 | Emergency (ER) | payer MEDICARE, MEDICAID ==
--- OUTSIDE RECORDS SUMMARY | 2018-09-13 11:33 | XMS REPORT | Continuity of Care Document ---
:1940 External Reference #:[id number] Author Name Alba Fernandez Care Team Providers Name Role Phone Matt Barrera MD Primary Care Physician Unavailable Payers Date Identification Numbers Payment Provider Subscriber Effective: 2008 Policy Number: [id number] Medicare Steven Altamirano PayID: [id number] [address] [place] [address] Policy Number: [id number] Medicaid Steven Altamirano Group Name: 1 1 [address] PayID: [id number] [place] [address] Advance Directives Description No Information Available Problems Date Description Provider Status Onset: 03/22/2013 Chronic ischemic heart disease Madisyn Rivas M.D. Active Onset: 03/22/2013 Primary cardiomyopathy Madisyn Rivas M.D. Active Onset: 03/22/2013 Left bundle branch block Madisyn Rivas M.D. 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 Active other cause Onset: 08/15/2013 Congestive heart failure Madisyn Rivas M.D. 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 Active Onset: 08/15/2013 Cardiac pacemaker in situ Madisyn Rivas M.D. Active Onset: 06/16/2014 Paroxysmal ventricular tachycardia Madisyn Rivas M.D. Active Onset: 12/29/2014 Essential hypertension Madisyn Rivas M.D. Active Onset: 06/26/2015 Paroxysmal supraventricular Madisyn Rivas M.D. 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 Onset: 12/24/2017 Obstructive sleep apnea syndrome Radha Johnson DNP, RN, Active JUDGE CLERK-BC Onset: 12/24/2017 Hypoxemia Radha Johnson DNP, RN, Active JUDGE CLERK-BC Family History Date Family Member(s) Observation Comments Father due to Natural Causes () - 87 Mother due to Natural Causes () - 88 Siblings 7 4 sisters and 3 brothers Social History Type Date Description Comments Sex Unknown Marital Status Lives With Alone Occupation Retired Tobacco Use Start: Unknown End: Former Cigarette Smoker Smoked 1 ppd for 18 Unknown years Smoking Status Reviewed: 08/20/18 Former Cigarette Smoker Smoked 1 ppd for 18 years ETOH Use Rarely consumes alcohol Tobacco Use Start: Unknown End: Patient is a former from 1961 to 1979 Unknown smoker Recreational Drug Use Denies Drug Use Exercise Type/Frequency Exercises regularly walking 3-4 days a week, 3 miles each day. Allergies, Adverse Reactions, Alerts Description No Known Drug Allergies Medications Medication Date Status Form Strength Qnty SIG Indications Ordering Provider Carvedilol 07/30/ Active Tablets 12.5mg 180ta 1 by Madisyn 2018 bs mouth Rob, twice a M.D. day Sotalol HCL (AF) 07/30/ Active Tablets 80mg 90tab 06/16 tab I47.2 Madisyn 2018 s by mouth Rob, twice a M.D. day Finasteride / Active Tablets 5mg 90tab 1 po qd Unknown 0000 s Tamsulosin HCL / Active Capsules 0.4mg 1 po qd Unknown 0000 Losartan / Active Tablets 25mg 1 po qd Unknown Potassium 0000 Aspirin / Active Tablets DR 325mg 28tab take 1 by Unknown 0000 s mouth Levothyroxine / Active Tablets 112mcg 90tab 1 by Unknown Sodium 0000 s mouth every day Atorvastatin / Active Tablets 20mg 1 po qd Unknown Calcium 0000 Novolin 70/30 / Active 100Units/ inject 4o Unknown Relion 0000 ML units Am , depends in evening add 10- use directed Famotidine / Active Tablets 40mg 1 tablet [place], 0000 daily MD Matt Acetaminophen / Active Tablets 500mg 1 tablet Unknown 0000 po daily every 6 hours prn Clobetasol / Active applied Unknown Propionate 0000 to affected area as needed Coreg 03/21/ Hx Tablets 25mg 180ta 1 po Madisyn 2012 - daily [place], M.D. 2018 Nortriptyline 03/21/ Hx Capsules 25mg 60cap prn Madisyn HCL 2012 [place], M.D. 2013 Nitroglycerin 08/03/ Hx Patches 24HR 0.4mg/HR 30uni 1 patch Madisyn 2012 to chest [place], M.D. 2016 every day every evening ( PT Told Losartan 06/18/ Hx Tablets 50mg 30tab 1 po qd Madisyn Potassium 2012 [place], M.D. 2012 Spironolactone / Hx Tablets 25mg 30tab 1 po 3 Unknown 0000 - s days 07/18/ weekly, 2017 MWFr(Has stopped taking this ) Atorvastatin / Hx Tablets 40mg 90tab 1 po qd Unknown Calcium 0000 - s 2013 Tricor / Hx Tablets 145mg 90tab 1 po qd Unknown 0000 - s 2013 Humulin 70/30 / Hx Suspension (70-30)10 1Bott qd Unknown 0000 - 0Unit/ML le 2015 Omeprazole / Hx Capsules DR 20mg 90cap 1 po qd Unknown 0000 - s 2015 Methimazole / Hx Tablets 40mg 30tab Unknown 0000 - s 2013 Diphenoxylate-At / Hx 2-5-0.025 1 by Unknown rop 0000 - mouth bid 06/16/ prn for 2016 diarrhea Avodart / Hx Capsules 0.5mg 90cap 1 by Unknown 0000 - s mouth 03/19/ every day 2015 Carvedilol 00/ Hx Tablets 25mg 1 tablet Unknown 0000 - po twice 07/30/ daily 2019 Carvedilol / Hx 25mg 1 Unknown 0000 - tablet po 03/07/ bid ( 2019 taken along with 12.5mg) Medications Administered in Office Medication Date Status Form Strength Qnty SIG Indications Ordering Provider Inj, Administered Injection Rishabh Sherwood Regadenoson, 017 Chase, 0.1 MG M.D., FACC, FASNC Technetium TC Administered Injection Rishabh Sherwood 99M 017 Chase, Tetrofosmin, M.D., FACC, Per Unit Dose FASNC Up To 40 Millicuries Inj, Administered Injection Rishabh Sherwood Regadenoson, 014 Chase, 0.1 MG M.D., FACC, FASNC Inj, Administered Injection Elsa Crook, Regadenoson, 014 PA 0.1 MG Technetium TC Administered Injection Rishabh Sherwood 99M 014 Chase, Tetrofosmin, M.D., FACC, Per Unit Dose FASNC Up To 40 Millicuries Technetium TC Administered Injection Elsa Crook, 99M 014 PA Tetrofosmin, Per Unit Dose Up To 40 Millicuries Inj, Administered Injection Madisyn Regadenoson, 013 Rob, 0.1 MG M.D. Technetium TC Administered Injection Madisyn 99M 013 Rob, Tetrofosmin, M.D. Per Unit Dose Up To 40 Millicuries Immunizations Description No Information Available Vital Signs Date Vital Result Comment 08/20/2018 4:29pm Height 65 inches 5'5" Weight 168.00 lb with out shoes Heart Rate 68 /min BP Systolic Sitting 100 mmHg Lue reg cuff BP Diastolic Sitting 54 mmHg Lue reg cuff BP Systolic Standing 100 mmHg Lue reg cuff BP Diastolic Standing 52 mmHg Lue reg cuff Respiratory Rate 16 /min BMI (Body Mass Index) 28.0 kg/m2 Ejection Fraction 30-35% date 07/05/18 echo 08/13/2018 4:10pm Height 65 inches 5'5" Weight 170.00 lb with out shoes Heart Rate 52 /min BP Systolic Sitting 110 mmHg Rue reg cuff BP Diastolic Sitting 70 mmHg Rue reg cuff BP Systolic Standing 110 mmHg Rue reg cuff BP Diastolic Standing 60 mmHg Rue reg cuff Respiratory Rate 16 /min BMI (Body Mass Index) 28.3 kg/m2 Ejection Fraction 30-35% date 07/05/18 ECHO 07/30/2018 3:22pm Height 65 inches 5'5" Weight 171.00 lb with shoes Heart Rate 78 /min BP Systolic Sitting 112 mmHg Lue reg cuff BP Diastolic Sitting 62 mmHg Lue reg cuff BP Systolic Standing 90 mmHg Lue reg cuff BP Diastolic Standing 60 mmHg Lue reg cuff Respiratory Rate 16 /min BMI (Body Mass Index) 28.5 kg/m2 Ejection Fraction 30-35% date 07/05/18 ECHO 04/19/2018 1:27pm Height 65 inches 5'5" Weight 165.00 lb Heart Rate 74 /min BP Systolic Sitting 110 mmHg Lue, reg cuff BP Diastolic Sitting 64 mmHg Lue, reg cuff BP Systolic Standing 106 mmHg Lue, reg cuff BP Diastolic Standing 50 mmHg Lue, reg cuff Respiratory Rate 22 /min BMI (Body Mass Index) 27.5 kg/m2 Ejection Fraction 30-35% date 01/30/14 echo 12/24/2017 10:18am Height 65 inches 5'5" Weight 166.00 lb Heart Rate 60 /min BP Systolic Sitting 116 mmHg Rue regular cuff BP Diastolic Sitting 76 mmHg Rue regular cuff Respiratory Rate 16 /min O2 % BldC Oximetry 95 % BMI (Body Mass Index) 27.6 kg/m2 12/04/2017 8:46am Height 65 inches 5'5" Weight 168.00 lb w/ shoes Heart Rate 70 /min BP Systolic Sitting 104 mmHg lue lg cuff BP Diastolic Sitting 54 mmHg lue lg cuff BP Systolic Standing 104 mmHg lue lg cuff BP Diastolic Standing 54 mmHg lue lg cuff Respiratory Rate 18 /min BMI (Body Mass Index) 28.0 kg/m2 Ejection Fraction 30-35% echo 01/30/14 11/05/2017 8:41am Height 65 inches 5'5" Weight 164.50 lb Heart Rate 72 /min BP Systolic Sitting 108 mmHg Rue reg cuff BP Diastolic Sitting 58 mmHg Rue reg cuff Respiratory Rate 20 /min O2 % BldC Oximetry 95 % On Ra BMI (Body Mass Index) 27.4 kg/m2 09/17/2017 8:58am Height 65 inches 5'5" Weight 166.00 lb Heart Rate 76 /min BP Systolic Sitting 126 mmHg BP Diastolic Sitting 68 mmHg Respiratory Rate 14 /min O2 % BldC Oximetry 97 % BMI (Body Mass Index) 27.6 kg/m2 Neck Circumference in inches 17.25 07/31/2017 3:10pm Height 65 inches 5'5" Weight 167.00 lb with shoes Heart Rate 70 /min BP Systolic Sitting 120 mmHg Rue reg cuff BP Diastolic Sitting 60 mmHg Rue reg cuff BP Systolic Standing 114 mmHg Rue reg cuff BP Diastolic Standing 64 mmHg Rue reg cuff Respiratory Rate 17 /min BMI (Body Mass Index) 27.8 kg/m2 Ejection Fraction 30-35% date 01/30/14 ECHO 03/04/2017 3:59pm Height 65 inches 5'5" Weight 167.00 lb without shoes Heart Rate 84 /min BP Systolic Sitting 92 mmHg R arm reg cuff BP Diastolic Sitting 60 mmHg R arm reg cuff BP Systolic Standing 84 mmHg no dizziness BP Diastolic Standing 60 mmHg no dizziness Respiratory Rate 18 /min BMI (Body Mass Index) 27.8 kg/m2 01/22/2017 1:59pm Height 65 inches 5'5" Weight 169.00 lb Heart Rate 72 /min BP Systolic Sitting 114 mmHg Lue reg cuff BP Diastolic Sitting 64 mmHg Lue reg cuff BP Systolic Standing 98 mmHg Lue BP Diastolic Standing 58 mmHg Lue Respiratory Rate 16 /min BMI (Body Mass Index) 28.1 kg/m2 Ejection Fraction 30-35% 01/30/14 08/15/2016 9:12am Height 65 inches 5'5" Weight 169.00 lb w/ shoes Heart Rate 82 /min reg BP Systolic Sitting 118 mmHg Rue, reg cuff BP Diastolic Sitting 72 mmHg Rue, reg cuff BP Systolic Standing 110 mmHg Rue BP Diastolic Standing 66 mmHg Rue Respiratory Rate 16 /min BMI (Body Mass Index) 28.1 kg/m2 Ejection Fraction 30-35% as of 01/30/14 echo 04/24/2016 3:16pm Height 65 inches 5'5" Weight 170.00 lb Heart Rate 64 /min BP Systolic Sitting 116 mmHg Ra reg cuff BP Diastolic Sitting 68 mmHg Ra reg cuff BP Systolic Standing 112 mmHg BP Diastolic Standing 62 mmHg BMI (Body Mass Index) 28.3 kg/m2 03/18/2016 10:19am Height 65 inches 5'5" Weight 166.00 lb without shoes Heart Rate 61 /min BP Systolic Sitting 100 mmHg Ra reg cuff BP Diastolic Sitting 60 mmHg Ra reg cuff BP Systolic Standing 98 mmHg Ra reg cuff BP Diastolic Standing 66 mmHg Ra reg cuff Respiratory Rate 16 /min BMI (Body Mass Index) 27.6 kg/m2 Ejection Fraction 30-35% date ECHO 01/10/2016 2:45pm Height 65 inches 5'5" Weight 170.00 lb Heart Rate 64 /min BP Systolic Sitting 108 mmHg Ra reg cuff BP Diastolic Sitting 60 mmHg Ra reg cuff BP Systolic Standing 102 mmHg Ra BP Diastolic Standing 62 mmHg Ra Respiratory Rate 16 /min BMI (Body Mass Index) 28.3 kg/m2 Ejection Fraction 30-35% 01/30/14 06/26/2015 12:54pm Height 65 inches 5'5" Weight 175.00 lb w/o shoes Heart Rate 58 /min reg BP Systolic Sitting 124 mmHg Rue, reg cuff BP Diastolic Sitting 70 mmHg Rue, reg cuff BP Systolic Standing 120 mmHg Rue BP Diastolic Standing 66 mmHg Rue Respiratory Rate 18 /min BMI (Body Mass Index) 29.1 kg/m2 Ejection Fraction 30-35% as of 01/30/14 echo 12/29/2014 8:11am Height 65 inches 5'5" Weight 168.00 lb Heart Rate 70 /min BP Systolic Sitting 124 mmHg right arm, reg cuff BP Diastolic Sitting 68 mmHg right arm, reg cuff BP Systolic Standing 122 mmHg right arm, reg cuff BP Diastolic Standing 68 mmHg right arm, reg cuff Respiratory Rate 20 /min BMI (Body Mass Index) 28.0 kg/m2 Ejection Fraction 30-35% 01/30/14 06/16/2014 8:05am Height 65 inches 5'5" Weight 166.00 lb Heart Rate 72 /min BP Systolic Sitting 128 mmHg Ra reg cuff BP Diastolic Sitting 80 mmHg Ra reg cuff BP Systolic Standing 124 mmHg Ra BP Diastolic Standing 72 mmHg Ra Respiratory Rate 14 /min BMI (Body Mass Index) 27.6 kg/m2 02/07/2014 8:47am Height 65 inches 5'5" Weight 167.00 lb Heart Rate 66 /min BP Systolic Sitting 124 mmHg LA reg cuff BP Diastolic Sitting 70 mmHg LA reg cuff BP Systolic Standing 118 mmHg LA reg cuff BP Diastolic Standing 68 mmHg LA reg cuff Respiratory Rate 12 /min BMI (Body Mass Index) 27.8 kg/m2 01/18/2014 7:26am Height 65 inches 5'5" Weight 162.00 lb without shoes Heart Rate 69 /min BP Systolic Sitting 110 mmHg L arm Reg cuff BP Diastolic Sitting 64 mmHg L arm Reg cuff BP Systolic Standing 100 mmHg L arm Reg cuff BP Diastolic Standing 58 mmHg L arm Reg cuff Respiratory Rate 18 /min BMI (Body Mass Index) 27.0 kg/m2 08/15/2013 8:58am Height 65 inches 5'5" Weight 162.00 lb Heart Rate 7078 /min BP Systolic Sitting 130 mmHg L arm regular cuff BP Diastolic Sitting 70 mmHg L arm regular cuff BP Systolic Standing 124 mmHg BP Diastolic Standing 70 mmHg Respiratory Rate 18 /min BMI (Body Mass Index) 27.0 kg/m2 03/22/2013 11:00am Height 65 inches 5'5" Weight 156.00 lb Heart Rate 76 /min BP Systolic Sitting 118 mmHg LA reg cuff BP Diastolic Sitting 74 mmHg LA reg cuff BP Systolic Standing 110 mmHg LA BP Diastolic Standing 70 mmHg LA Respiratory Rate 16 /min BMI (Body Mass Index) 26.0 kg/m2 Results Test Date Facility Test Result H/L Range Note Comp Metabolic Panel 12/04/2017 [facility] Sodium 141 mmol/L N 135-[address] [place] [address] [phone] Potassium 4.3 mmol/L N 3.5-5.0 Chloride 106 mmol/L N 101-111 Co2 Carbon Dioxide 30 mmol/L N 22-32 Anion Gap 5 mmol/L N 2-11 Glucose 98 mg/dL N 70-100 Blood Urea Nitrogen 21 mg/dL N 6-24 Creatinine 0.81 mg/dL N 0.67-1.17 BUN/Creatinine Ratio 25.9 High 8-20 Calcium 9.6 mg/dL N 8.6-10.3 Total Protein 7.1 g/dL N 6.4-8.9 Albumin 4.1 g/dL N 3.2-5.2 Globulin 3.0 g/dL N 2-4 Albumin/Globulin Ratio 1.4 N 1-3 Total Bilirubin 0.60 mg/dL N 0.2-1.0 Alkaline Phosphatase 65 U/L N 34-104 Alt 14 U/L N 7-52 Ast 14 U/L N 13-39 Egfr Non- 92.4 >60 Egfr 111.8 >60 1 Laboratory test 12/04/2017 [facility] TSH (Thyroid 1.88 mcIU/mL N 0.34-5.60 [address] Stim Horm) [place] [address] [phone] Free T4 (Free Thyroxine) 0.88 ng/dL N 0.61-1.12 3 CBC Auto Diff 08/15/2016 [facility] White Blood 6.6 10^3/uL N 3.5-10.[address] [place] [address] [phone] Red Blood Count 4.27 10^6/uL N 4.0-5.4 Hemoglobin 12.5 g/dL Low 14.0-18.0 Hematocrit 38 % Low 42-52 Mean Corpuscular Volume 90 fL N 80-94 Mean Corpuscular Hemoglobin 29 pg N 27-31 Mean Corpuscular HGB Conc 33 g/dL N 31-36 Red Cell Distribution Width 15 % N 10.5-15 Platelet Count 124 10^3/uL Low 150-450 Mean Platelet Volume 9 um3 N 7.4-10.4 Abs Neutrophils 3.1 10^3/uL N 1.5-7.7 Abs Lymphocytes 1.4 10^3/uL N 1.0-4.8 Abs Monocytes 2.0 10^3/uL High 0-0.8 Abs Eosinophils 0.1 10^3/uL N 0-0.6 Abs Basophils 0 10^3/uL N 0-0.2 Abs Nucleated RBC 0 10^3/uL N Granulocyte % 47.3 % N 38-83 Lymphocyte % 20.5 % Low 25-47 Monocyte % 30.3 % High 1-9 Eosinophil % 1.4 % N 0-6 Basophil % 0.5 % N 0-2 Nucleated Red Blood Cells % 0 N Thyroid Panel 08/15/2016 [facility] Free T4 (Free 1.10 ng/dL N 0.61-1.[address] Thyroxine) [place] [address] [phone] Thyroxine 8.91 ?g/dL N 6.09-12.23 TSH (Thyroid Stim Horm) 0.42 mcIU/mL N 0.34-5.60 Laboratory test 08/15/2016 [facility] B-Type 261 pg/mL High [address] [place] [address] Peptide BNP [phone] Troponin-I (TnI) 0.02 ng/mL N <0.04 5 Laboratory test 08/15/2016 [facility] Magnesium 2.0 mg/dL N 1.9-2.7 finding [address] [place] [address] [phone] Comp Metabolic 08/15/2016 [facility] Sodium 141 mmol/L N 133- 145 Panel [address] [place] [address] [phone] Potassium 4.3 mmol/L N 3.5-5.0 Chloride 109 mmol/L N 101-111 Co2 Carbon Dioxide 30 mmol/L N 22-32 Anion Gap 2 mmol/L N 2-11 Glucose 108 mg/dL High 70-100 Blood Urea Nitrogen 24 mg/dL N 6-24 Creatinine 0.75 mg/dL N 0.67-1.17 BUN/Creatinine Ratio 32.0 High 8-20 Calcium 9.4 mg/dL N 8.6-10.3 Total Protein 7.0 g/dL N 6.4-8.9 Albumin 3.9 g/dL N 3.2-5.2 Globulin 3.1 g/dL N 2-4 Albumin/Globulin Ratio 1.3 N 1-3 Total Bilirubin 0.50 mg/dL N 0.2-1.0 Alkaline Phosphatase 63 U/L N 34-104 Alt 15 U/L N 7-52 Ast 14 U/L N 13-39 Egfr Non- 101.5 N >60 Egfr 130.6 N >60 6 Urinalysis 06/18/2012 [facility] Urine Color Yellow [address] [place] [address] [phone] Urine Appearance Clear Urine Specific [place] 1.023 1.010-1.030 Urine Esterase Negative Negative Urine Nitrate Negative Negative Urine Urobilinogen Negative E.U./dL Negative Urine Protein Negative mg/dL Negative Urine pH 5.0 5-9 Urine Blood Negative Negative Urine Ketones Negative mg/dL Negative Urine Bilirubin 1+ Abnormal Negative 7 Urine Glucose 3+ mg/dL Abnormal Negative Rapid Influenza A 06/18/2012 [facility] Rapid Influenza A (SEE NOTE) 8 B Antigen [address] [facility] [place] [place] [address] [phone] 1 Because ethnic data is not always readily available, this report includes an eGFR for both -Americans and non- Americans. The National Kidney Disease Education Program (NKDEP) does not endorse the use of the MDRD equation for patients that are not between the ages of 18 and 70, are , have extremes of body size, muscle mass, or nutritional status, or are non- or non-. According to the National Kidney Foundation, irrespective of diagnosis, the stage of the disease is based on the level of kidney function: Stage Description GFR(mL/min/1.73 m(2)) 1 Kidney damage with normal or decreased GFR 90 2 Kidney damage with mild decrease in GFR 60-89 3 Moderate decrease in GFR 30-59 4 Severe decrease in GFR 15-29 5 Kidney failure <15 (or dialysis) 2 Copy Result to: MATT BARRERA ([id number]) 3 Copy Result to: MATT BARRERA ([id number]) 4 >100 to <200 pg/mL: likely compensated congestive heart failure (CHF) 200 to 400 pg/mL: likely moderate CHF >400 pg/mL: likely moderate to severe CHF 5 99th percentile=0.04 ng/mL Troponin results at [facility] and [facility] are not interchangeable. 6 Because ethnic data is not always readily available, this report includes an eGFR for both -Americans and non- Americans. The National Kidney Disease Education Program (NKDEP) does not endorse the use of the MDRD equation for patients that are not between the ages of 18 and 70, are , have extremes of body size, muscle mass, or nutritional status, or are non- or non-. According to the National Kidney Foundation, irrespective of diagnosis, the stage of the disease is based on the level of kidney function: Stage Description GFR(mL/min/1.73 m(2)) 1 Kidney damage with normal or decreased GFR 90 2 Kidney damage with mild decrease in GFR 60-89 3 Moderate decrease in GFR 30-59 4 Severe decrease in GFR 15-29 5 Kidney failure <15 (or dialysis) 7 Effective 05/12/12, bilirubin confirmation by ictotest is discontinued. False-positive results for bilirubin may occur due to color interference from large amounts of blood in the urine, very concentrated urine, or drugs that discolor urine such as phenazopyridine(Pyridium). 8 RUN DATE: 06/18/12 [facility] LAB LIVE PAGE 1 RUN TIME: 2139 [address] [place], [place] [address] Specimen Inquiry Name: STEVEN ALTAMIRANO : [address]: Katelyn Mckeon DO Acct: [id number] Unit: [id number] AGE: 71 Location: ED Re06/18/12 SEX: M Status: REG ER SPEC: [id number] MONICA: 06/18/[address]: Kita Garay NP REQ: [id number] RECD: 06/18/12 STATUS: WINNIE PORTER DR: Katelyn Mckeon DO, MD,Matt Rivas MD,Madisyn _ SOURCE: NASAL WASH SPDESC: ORDERED: Rapid Flu A B Procedure Result Verified Site Rapid Influenza A B Antigen Final 06/18/12- 2140 ML Influenza A Antigen Negative by Enzyme Immunoassay Influenza B Antigen Negative by Enzyme Immunoassay Cell culture testing can be performed to confirm negative test results and to assist in detecting other viruses that can produce similar clinical symptoms. Please notify Microbiology Lab if further testing is desired. END OF REPORT * ML=Testing performed at Main Lab DEPARTMENT OF PATHOLOGY, [address] [place] [address] Miguel Blackwood M.D. Director [facility] Permit #[id number] Procedures Date Code Description Status 08/13/2018 86110 EKG Tracing & Interpretation Completed 07/30/2018 12806 EKG Tracing & Interpretation Completed 07/05/2018 45116 EKG, Interpretation Only Completed 07/05/2018 92950 ECHO Transthorasic Realtime 2D W Doppler & Color Flow Hosp Completed 05/17/2018 64850 Interrogation Implant Cardiovasc Monitor System Incl Completed Analysis Int 05/17/2018 76691 Interrogation Implant Cardiovasc Monitor System Incl Completed Analysis Int 05/17/2018 75734 Icd Eval With Iterative Adjustmt Multiple Lead System Completed 05/17/2018 86155 Icd Eval With Iterative Adjustmt Multiple Lead System Completed 04/19/2018 18958 Interrogation Implant Cardiovasc Monitor System Incl Completed Analysis Int 04/19/2018 35500 Interrogation Implant Cardiovasc Monitor System Incl Completed Analysis Int 04/19/2018 50949 Icd Eval With Iterative Adjustmt Multiple Lead System Completed 04/19/2018 93844 Icd Eval With Iterative Adjustmt Multiple Lead System Completed 02/25/2018 98333 Polysomnography Sleep Staging 4+ Parameters W/Cpap Completed 10/27/2017 48866 Polysomnography Sleep Staging 4+ Parameters Completed 10/23/2017 90439 Icd Eval With Iterative Adjustmt Multiple Lead System Completed 10/23/2017 63443 Icd Eval With Iterative Adjustmt Multiple Lead System Completed 10/23/2017 18523 Interrogation Implant Cardiovasc Monitor System Incl Completed Analysis Int 10/23/2017 65281 Interrogation Implant Cardiovasc Monitor System Incl Completed Analysis Int 08/01/2017 73693 Icd Eval Sing,Dual,Multi Lead Remote Recpt Transm Tech Rev Completed Tech S 08/01/2017 13495 Icd Check Remote Up To 90 Days Single,Dual,Multiple Lead Completed 07/31/2017 80012 EKG Tracing & Interpretation Completed 08/19/2016 64407 Stress Test Completed 08/19/2016 53850 Myocardial Perfusion Imaging Tomographic (Spect) Multiple Completed Studies 08/15/2016 72211 EKG Tracing & Interpretation Completed 04/24/2016 82495 Icd Check Single,Dual Or Multiple In Person W/DR Incl Completed Heart Rhyth 03/12/2016 61182 Icd Eval With Iterative Adjustmt Multiple Lead System Completed 03/12/2016 88339 Interrogation Implant Cardiovasc Monitor System Incl Completed Analysis Int 10/24/2015 11466 Icd Eval With Iterative Adjustmt Multiple Lead System Completed 10/23/2015 73026 Interrogation Implant Cardiovasc Monitor System Incl Completed Analysis Int 10/23/2015 70212 Icd Eval With Iterative Adjustmt Multiple Lead System Completed 06/26/2015 85245 EKG Tracing & Interpretation Completed 06/20/2015 95280 Interrogation Implant Cardiovasc Monitor System Incl Completed Analysis Int 06/20/2015 18156 Icd Eval With Iterative Adjustmt Multiple Lead System Completed 02/22/2015 42757 Icd Check Single,Dual Or Multiple In Person W/DR Incl Completed Heart Rhyth 02/22/2015 48892 Interrogation Implant Cardiovasc Monitor System Incl Completed Analysis Int 10/17/2014 92362 Interrogation Implant Cardiovasc Monitor System Incl Completed Analysis Int 10/17/2014 36367 Icd Check Single,Dual Or Multiple In Person W/DR Incl Completed Heart Rhyth 06/13/2014 13660 Interrogation Implant Cardiovasc Monitor System Incl Completed Analysis Int 06/13/2014 15754 Icd Eval With Iterative Adjustmt Multiple Lead System Completed 01/30/2014 41669 ECHO Transthoracic, Real-Time 2D With Doppler And Color Completed Flow 01/26/2014 44128 Icd Eval With Iterative Adjustmt Multiple Lead System Completed 01/20/2014 06252 Stress Test Completed 01/20/2014 72896 Myocardial Perfusion Imaging Tomographic (Spect) Multiple Completed Studies 01/20/2014 68660 Myocardial Perfusion Imaging Tomographic (Spect) Multiple Completed Studies 01/18/2014 45294 Holter Monitoring 24 HR New Completed 01/18/2014 60214 Holter Monitoring 24 HR New Completed 11/23/2013 70638 Icd Eval With Iterative Adjustmt Multiple Lead System Completed 08/16/2013 82821 Icd Eval With Iterative Adjustmt Multiple Lead System Completed 08/15/2013 07387 EKG Tracing & Interpretation Completed 07/26/2013 15695 Icd Eval With Iterative Adjustmt Multiple Lead System Completed 07/26/2013 13288 Interrogation Implant Cardiovasc Monitor System Incl Completed Analysis Int 07/26/2013 53039 Interrogation Implant Cardiovasc Monitor System Incl Completed Analysis Int 04/05/2013 71374 ECHO Transthoracic, Real-Time 2D With Doppler And Color Completed Flow 04/05/2013 68838 Interrogation Implant Cardiovasc Monitor System Incl Completed Analysis Int 04/05/2013 29898 Icd Eval With Iterative Adjustmt Multiple Lead System Completed 03/15/2013 81188 ECHO Transthoracic, Real-Time 2D With Doppler And Color Completed Flow 03/08/2013 14582 Interrogation Implant Cardiovasc Monitor System Incl Completed Analysis Int 03/08/2013 57994 Icd Eval With Iterative Adjustmt Multiple Lead System Completed 11/01/2012 75952 Icd Eval With Iterative Adjustmt Multiple Lead System Completed 11/01/2012 86963 Interrogation Implant Cardiovasc Monitor System Incl Completed Analysis Int 09/30/2012 61733 ECHO Transthoracic, Real-Time 2D With Doppler And Color Completed Flow 08/03/2012 50913 Icd Eval With Iterative Adjustmt Multiple Lead System Completed 08/03/2012 07737 EKG Tracing & Interpretation Completed 06/20/2012 44476 ECHO Transthorasic Realtime 2D W Doppler & Color Flow Hosp Completed 06/17/2012 19104 Stress Test Completed 06/17/2012 61198 Myocardial Perfusion Imaging Tomographic (Spect) Multiple Completed Studies 03/17/2012 05011 ECHO Transthoracic, Real-Time 2D With Doppler And Color Completed Flow Encounters Type Date Location Provider Dx Diagnosis Office Visit 07/30/2018 [facility] Madisyn Rivas, I25.5 Ischemic 3:00p Of [facility] MDonis cardiomyopathy Z95.810 Presence of automatic (implantable) cardiac defibrillator I47.2 Ventricular tachycardia R07.89 Other chest pain Office Visit 07/05/2018 4:33p [facility] Eyal Carpenter R07.9 Chest pain, Of Nevin Almonte M.D. unspecified Office Visit 07/05/2018 8:37a [facility] R07.9 Chest pain, Assoc,kameron Rubio MD unspecified Hospitalists E11.9 Type 2 diabetes mellitus without complications E03.9 Hypothyroidism, unspecified G47.30 Sleep apnea, unspecified N40.0 Benign prostatic hyperplasia without lower urinry tract symp Office Visit 04/19/2018 [place] Madisyn Rivas, I25.810 Atherosclerosis of 1:50p Cardiology Of Trish CABG w/o angina [employer] Operator pectoris I47.2 Ventricular tachycardia I25.5 Ischemic cardiomyopathy Z95.810 Presence of automatic (implantable) cardiac defibrillator I47.1 Supraventricular tachycardia R42 Dizziness and giddiness Office Visit 12/24/2017 [facility] And Radha G47.33 Obstructive sleep 10:30a Sleep Services Of MARBELLA Johnson RN, apnea (adult) [facility] (pediatric) R09.02 Hypoxemia Office Visit 12/04/2017 9:00a [facility] Madisyn Rivas I47.2 Ventricular Of [facility] [place] [facility] [place] tachycardia Z95.810 Presence of automatic (implantable) cardiac defibrillator G47.33 Obstructive sleep apnea (adult) (pediatric) I25.5 Ischemic cardiomyopathy I25.810 Atherosclerosis of CABG w/o angina pectoris Office Visit 11/05/2017 [facility] Radha G47.33 Obstructive sleep 9:00a [facility] MARBELLA Johnson [facility], [facility] 09/17/2017 Pulmonology And Carmenza Dickson G47.9 Sleep disorder, 9:30a Sleep Services Of unspecified [facility] R09.02 Hypoxemia Office Visit 07/31/2017 3:30p [facility] Madisyn Loud[place], I47.2 Ventricular Of [employer] M.D. tachycardia I25.5 Ischemic cardiomyopathy Office Visit 03/04/2017 [place] Madisyn Rivas, Z95.810 Presence of 4:00p Cardiology Of M.D. automatic [employer] Operator (implantable) cardiac defibrillator I25.5 Ischemic cardiomyopathy Office Visit 01/22/2017 [place] Madisyn Rivas I25.810 Atherosclerosis of 1:45p Cardiology Of M.D. CABG w/o angina [employer] Operator pectoris Z95.810 Presence of automatic (implantable) cardiac defibrillator I25.5 Ischemic cardiomyopathy I44.2 Atrioventricular block, complete Office Visit 08/15/2016 10:00a [facility] Madisyn Rivas I47.2 Ventricular Of [employer] [facility] [place] [facility] [place]. tachycardia Z95.810 Presence of automatic (implantable) cardiac defibrillator I25.5 Ischemic cardiomyopathy M79.602 Pain in left arm E11.8 Type 2 diabetes mellitus with unspecified complications Office Visit 08/04/2016 [place] Ica Pacer Z95.810 Presence of 2:15p Cardiology Of Schedule automatic [employer] Operator (implantable) cardiac defibrillator Office Visit 04/24/2016 [place] Madisyn Rivas Z95.810 Presence of 3:15p Cardiology Of M.D. automatic [employer] Operator (implantable) cardiac defibrillator Office Visit 03/18/2016 [place] Madisyn Rivas, Z95.810 Presence of 10:30a Cardiology Of M.D. 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 cardiomyopathy [employer] Operator Z95.810 Presence of automatic (implantable) cardiac defibrillator I25.719 Athscl autologous vein CABG w unsp angina pectoris Office Visit 06/26/2015 [place] Rivas I25.810 Atherosclerosis of 1:30p Cardiology Of M.D. CABG w/o angina [employer] Operator pectoris I25.5 Ischemic cardiomyopathy Z95.810 Presence of automatic (implantable) cardiac defibrillator I44.2 Atrioventricular block, complete I47.1 Supraventricular tachycardia Office Visit 12/29/2014 [place] Rivas, 425.4 Cardiomyopathy Other 8:30a Cardiology Of M.D. Prim [employer] Operator 414.02 Coronary Atherosclerosis Autologous Vein Bypass Graft 427.1 Paroxysmal Ventricular Tachycardia 401.9 Hypertension Unspec V45.01 Cardiac Pacemaker In Situ Postsurgical Office Visit 06/16/2014 [place] Madisyn Rivas 425.4 Cardiomyopathy Other 8:15a Cardiology Of .D. Prim [facility] V45.02 Cardiac Defibrillator Automatic Implantable Postsurgical 414.02 Coronary Atherosclerosis Autologous Vein Bypass Graft 427.1 Paroxysmal Ventricular Tachycardia Office Visit 02/07/2014 8:45a [facility] Madisyn Rivas, 786.50 Pain Chest Of [facility] M.D. Unspec 425.4 Cardiomyopathy Other Prim 414.02 Coronary Atherosclerosis Autologous Vein Bypass Graft Office Visit 01/18/2014 [place] Madisyn Rivas 414.02 Coronary 7:30a Cardiology Of .D. Atherosclerosis [facility] Autologous Vein Bypass Graft 786.50 Pain Chest Unspec 780.4 Dizziness & Giddiness 246.9 Thyroid Disorders Unspec Office Visit 08/15/2013 [place] Madisyn Rivas 425.4 Cardiomyopathy Other 8:45a Cardiology Of .D. [facility] 428.0 Congestive Heart Failure Unspecified 427.31 Atrial Fibrillation 414.02 Coronary Atherosclerosis Autologous Vein Bypass Graft 426.0 Atrioventricular Block Complete V45.01 Cardiac Pacemaker In Situ Postsurgical Office Visit 03/22/2013 10:45a [facility] Madisyn Rivas, 414.9 Ischemic Heart Of [facility] M.D. 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 M.D. Disease Chronic Unspec 425.4 Cardiomyopathy Other Prim 426.3 Left Bundle Branch Block Other 428.0 Congestive Heart Failure Unspecified Office Visit 08/03/2012 [place] Madisyn Rivas 425.4 Cardiomyopathy Other 8:30a Cardiology Of M.D. 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 Episode Care Unspec 414.8 Ischemic Heart Disease Chronic Other Spec Forms 729.5 Pain In Limb 250.00 Diabetes Mellitus W/O Compl Type II Or Unspec Controlled Office Visit 06/20/2012 2:56p [facility] Camilo [place], 410.81 Myocardial Assoc,pc Trish [facility] Acute Hospitalists Other Spec Sites Initial Episode CR 428.1 Heart Failure Left 285.9 Anemia Unspec 584.9 Acute Kidney Failure, Unspecified Office Visit 06/19/2012 11:16a [facility] Madisyn Rivas, 411.1 Coronary Syndrome Of [facility] M.DFrancisco Intermediate 414.8 Ischemic Heart Disease Chronic Other Spec Forms 724.5 Backache Unspec Office Visit 06/19/2012 2:55p [facility] Camilo [place], 410.81 Myocardial Assoc,kameron Chambers [facility] Acute Hospitalists Other Spec Sites Initial Episode CR 428.1 Heart Failure Left 285.9 Anemia Unspec Office Visit 06/18/2012 2:13p [facility] Madisyn Rivas, 410.90 Myocardial Of [facility] M.DFrancisco [facility] Acute Unspec Site Episode Care Unspec 414.9 Ischemic Heart Disease Chronic Unspec 426.0 Atrioventricular Block Complete 786.2 Cough 250.00 Diabetes Mellitus W/O Compl Type II Or Unspec Controlled 786.50 Pain Chest Unspec 401.9 Hypertension Unspec Office Visit 06/18/2012 2:54p [facility] Kita S. 410.81 Myocardial Assoc,pc [facility] Acute Hospitalists Other Spec Sites Initial Episode CR 428.1 Heart Failure Left 285.9 Anemia Unspec Office Visit 06/17/2012 10:15a [facility] Madisyn Rivas, 786.50 Pain Chest Of [facility] M.DFrancisco Unspec 414.02 Coronary Atherosclerosis Autologous Vein Bypass Graft 250.00 Diabetes Mellitus W/O Compl Type II Or Unspec Controlled 272.0 Hypercholesterolemia Pure Office Visit 04/27/2009 12:15a [facility] Sai Reveles, 724.5 Backache Unspec Assoc,kameron Chambers Hospitalists Plan of Treatment Future Appointment(s):10/21/2018 4:00 pm - Madisyn Rivas M.D. at [facility]08/25/2018 11:30 am - Radha Johnson DNP, RN, JUDGE CLERK-BC at [facility] Of [facility]08/23/2018 7:20 am - Remote Device Checks at [facility] Of [facility]08/20/2018 - Madisyn Rivas M.D.Z95.810 Presence of automatic (implantable) cardiac okzyswizudoaiY47.5 Ischemic cardiomyopathyFollow up:2-3 months, MD or COSMETICS SUPERVISOR with [employer] on the phone.Recommendations:Stay on these medications.I47.2 Ventricular tachycardiaComments:Very brief, much better.E03.9 Hypothyroidism, unspecified
--- NOTE | 2018-09-13 11:45 | UC ---
Respiratory Complaint HPI - HPI Summary HPI Summary: 77 yo male presents with fatigue, cough, and upper abdominal pain for the last 3 weeks. He speaks limited Setswana, thus most of the history is provided via translation by his son with him today. They tell me that about 3 weeks ago pt developed a dry cough and fatigue. He was seen around 08/30/18 by his PCP and was placed on Augmentin for 10 days and had no change in his symptoms. Around that time developed epigastric and LUQ mild discomfort. He is eating and drinking well. He no longer smokes, but did years ago. Denies fever, chills, SOB , chest pain, n/v/d/c, dysuria. No pale or loose stools. - History of Current Complaint Chief Complaint: UCRespiratory Stated Complaint: COUGH SORE THROAT LOWER BACK PAIN Time Seen by Provider: 09/13/18 11:44 Hx Obtained From: Patient, Family/Credit Card Associate Onset/Duration: Gradual Onset Severity Initially: Mild Severity Currently: Moderate Pain Intensity: 8 Pain Scale Used: 0-10 Numeric Character: Cough: Nonproductive - Allergies/Home Medications Allergies/Adverse Reactions: Allergies Allergy/AdvReac Type Severity Reaction Status Date / Time No Known Allergies Allergy Verified 09/13/18 11:43 PMH/Surg Hx/FS Hx/Imm Hx Endocrine History: Diabetes, Hypothyroidism Cardiovascular History: Cardiac Disease, Pacemaker/ICD - Surgical History Surgical History: Yes Surgery Procedure, Year, and Place: CABGX3 1983. GALLBLADDER SURGERY 1994? [facility] [place]. PACEMAKER 2010 [facility] [place]. TURBT 2011 [facility] [place] - Family History Known Family History: Positive: Cardiac Disease Negative: Blood Disorder - Social History Occupation: Retired Lives: With Family Alcohol Use: Rare Substance Use Type: None Smoking Status (MU): Former Smoker Type: Cigarettes Amount Used/How Often: 10 CIGS DAILY X 20 YEARS When Did the Patient Quit Smoking/Using Tobacco: 1979 Review of Systems All Other Systems Reviewed And Are Negative: Yes Constitutional: Positive: Fatigue Skin: Positive: Negative Eyes: Positive: Negative ENT: Positive: Negative Respiratory: Positive: Cough Cardiovascular: Positive: Negative Gastrointestinal: Positive: Abdominal Pain Genitourinary: Positive: Negative Neurovascular: Positive: Negative Neurological: Positive: Negative Psychological: Positive: Negative Physical Exam - Summary Physical Exam Summary: GENERAL: NAD. WDWN. Mild pallor - face. SKIN: No rashes, sores, lesions, or open wounds. HEENT: Head: AT/NC Eyes: EOM intact. Conjunctiva clear without inflammation or discharge. Ears: Hearing grossly normal. TMs intact, no bulging, erythema, or edema. Nose: Nasal mucosa pink and moist. NTTP maxillary and frontal sinus. Throat: Posterior oropharynx without exudates, erythema, or tonsillar enlargement. Uvula midline. NECK: Supple. Nontender. No lymphadenopathy. CHEST: CTAB. No r/r/w. No accessory muscle use. Breathing comfortably and in no distress. CV: RRR. Pulses intact. Cap refill <2seconds ABDOMEN: Mild LUQ TTP. Soft. No distention or guarding. No CVA tenderness. Bowel sounds present NEURO: Alert. PSYCH: Age appropriate behavior. Triage Information Reviewed: Yes Vital Signs: Initial Vital Signs Temp 98.8 F 09/13/18 11:38 Pulse 82 09/13/18 11:38 Resp 18 09/13/18 11:38 BP 115/54 09/13/18 11:38 Pulse Ox 98 09/13/18 11:38 Laboratory Tests 09/13/18 09/13/18 12:04 12:12 POC Glucose (mg/dL) 335 H POC Urine Color Yellow POC Urine Clarity Clear POC Urine pH 5.5 POC Ur Specif [place] 1.025 POC Urine Protein Negative POC Ur Glucose (UA) 1+ A POC Urine Ketones Trace A POC Urine Blood Negative POC Urine Nitrite Negative POC Urine Bilirubin Negative POC Urine Urobilinogen 0.2 POC U Leukocyte Esteras Negative Vital Signs Reviewed: Yes Respiratory Course/Dx - Course Course Of Treatment: CXR: IMPRESSION: POSTSURGICAL CHANGES, NO EVIDENCE FOR ACUTE FINDING. POC glucose: 335 UA negative. US pancreas: REPORT AND IMPRESSION: #. Atrophic pancreas with associated mild duct dilatation measuring up to 2.8 mm. No focal pancreatic lesion or peripancreatic fluid evident. #. The common bile duct is dilated up to 1.6 cm diameter unchanged from the July 04, 2018 CT which may be a normal finding in post cholecystectomy. Only minimal prominence of the intrahepatic bile ducts. No visualized choledocholithiasis or mass within the common bile duct. Discussed results with pt. His glucose is elevated, but this is not abnormal for him. I am unsure the cause of his continued cough and fatigue today. He was treated with Augmentin previously with no change in his symptoms. Will draw for CBC and CMP today and have him f/u with his PCP in the next 1-2 days. - Differential Dx/Diagnosis Provider Diagnosis: Fatigue, Cough, Diabetes Discharge - Sign-Out/Discharge Documenting (check all that apply): Patient Departure All imaging exams completed and their final reports reviewed: Yes - Discharge Plan Condition: Stable Disposition: HOME Patient Education Materials: Weakness (ED), Fatigue (ED) Referrals: Matt Sanchez MD [Primary Care Provider] - 1 Day Additional Instructions: If you develop a fever, shortness of breath, chest pain, new or worsening symptoms - please call your PCP or go to the ED. Your sugar was high today. Your chest X-ray and abdominal ultrasound were normal today. Your exam is normal. Please follow up with Dr. Sanchez as soon as possible for a recheck and further evaluation of your symptoms - Billing Disposition and Condition Condition: STABLE Disposition: Home
[2018-09-13 13:30] VITALS: BP 119/66
[2018-09-13 19:04] LABS: Hematocrit 34 % (36-46); Hemoglobin 11.5 g/dL (14.0-18.0); Mean Corpuscular HGB Conc 34 g/dL (31-36); Mean Corpuscular Hemoglobin 30 pg (27-31); Mean Corpuscular Volume 88 fL (80-94); Mean Platelet Volume 9.9 fL (7.4-10.4); Platelet Count 133 10^3/uL (150-450); Red Blood Count 3.84 10^6 /uL (4.18-5.48); Red Cell Distribution Width 14 % (10.5-15); White Blood Count 6.5 10^3/uL (3.5-10.8)
[2018-09-13 19:08] LABS: Albumin 3.8 g/dL (3.2-5.2); Calcium 9.2 mg/dL (8.6-10.3); Potassium 4.8 mmol/L (3.5-5.0); Total Bilirubin 0.4 mg/dL (0.2-1.0)
[2018-09-13 19:14] LABS: Albumin/Globulin Ratio 1.3 (1-3); EGFR African American 95.3 (>60); EGFR Non-African American 78.8 (>60); Total Protein 6.8 g/dL (6.4-8.9)
[2018-09-13 20:04] LABS: ABS Basophils 0 10^3/ul (0-0.2); ABS Eosinophils 0.1 10^3/ul (0-0.6); ABS Lymphocytes 1.3 10^3/ul (1.0-4.8); ABS Monocytes 1.7 10^3/ul (0-0.8); ABS Neutrophils 3.3 10^3/ul (1.5-7.7); ABS Nucleated RBC 0 10^3/ul; Eosinophil % 1.2 %; Lymphocyte % 20.7 %; Nucleated Red Blood Cells % 0
--- NOTE | 2018-09-14 07:46 | UC ---
- Progress Note Progress Note: you may notify pt of lab results slightly anemic and BS was 190 (elevated) f/u with PCP within a month for recheck Course/Dx - Diagnoses Provider Diagnoses: Fatigue, Cough, Diabetes Discharge - Sign-Out/Discharge Documenting (check all that apply): Post-Discharge Follow Up All imaging exams completed and their final reports reviewed: Yes - Discharge Plan Condition: Stable Disposition: HOME Patient Education Materials: Weakness (ED), Fatigue (ED) Referrals: Matt Sanchez MD [Primary Care Provider] - 1 Day Additional Instructions: If you develop a fever, shortness of breath, chest pain, new or worsening symptoms - please call your PCP or go to the ED. Your sugar was high today. Your chest X-ray and abdominal ultrasound were normal today. Your exam is normal. Please follow up with Dr. Sanchez as soon as possible for a recheck and further evaluation of your symptoms - Billing Disposition and Condition Condition: STABLE Disposition: Home
== END 2018-09-13 14:00 | disposition home or self-care (01) ==
LOC: UCEAST 11:22
DX: R53.83 Other fatigue (principal); R05 Cough; E11.9 Type 2 diabetes mellitus without complications; E03.9 Hypothyroidism, unspecified; I51.9 Heart disease, unspecified; Z95.810 Presence of automatic (implantable) cardiac defibrillator; Z87.891 Personal history of nicotine dependence
CPT/HCPCS: 36415; 71046; 76705; 80053; 81003; 85025; 85060; 99211; G0463

== ENCOUNTER 2019-05-26 14:20 | Emergency (ER) | payer MEDICARE, MEDICAID ==
--- OUTSIDE RECORDS SUMMARY | 2019-05-26 14:36 | XMS REPORT | Summary of Care ---
:1940 Author Organization [facility] Address [address] [facility] [place] [address] Care Team Providers Name Role Phone Matt Sanchez Primary Care Provider Erich Lea MD Primary Director Of Student Financial Services/Applied Statistician Reason for Visit Reason Comments Headache also states sore throat, very fatigued and feeling weak, and some throat pain for 10 days Encounter Details Date Type Department Care Team Description 05/18/2019 Office Visit [facility] Shelley Soto, Acute pharyngitis, unspecified etiology (Primary Dx); Practice PATracy Malaise and fatigue; [address] Type 2 diabetes mellitus with diabetic nephropathy, with long-term current use of insulin ([facility]); [place], [place] [id number] [place] [id number] Anemia, chronic disease; [phone] Essential hypertension Allergies No Known Allergiesdocumented as of this encounter (statuses as of 05/19/2019) Medications Medication Sig Dispensed Refills Start Date End Date Status nitroglycerin Place 1 Tab under 60 12 05/02/2009 Active (NITROSTAT) 0.4 MG tongue EVERY FIVE Sublingual SL Tab MINUTES NEEDED for chest pain. hydrocortisone Place 1 Appl per 30 g 5 07/31/2009 Active (ANUSOL-HC) 2.5 % rectum FOUR TIMES Rectal DAILY. CreamIndications: Hemorrhoid MICROLET LANCETS Does TEST UP TO 7 200 Each 11/30/2014 Active not apply Misc TIMES A DAY DIRECTED tizanidine (ZANAFLEX) 4 Take 1 Tab by 90 Tab 0 10/24/2016 Active MG Oral TabIndications: mouth EVERY SIX Neck strain, initial HOURS NEEDED encounter, Acute (neck and back bilateral thoracic back pain). pain Pamplin & Syringes Does by Does not apply 200 Each 12/28/2017 Active not apply Misc route TWICE DAILY. NAME: BD insulin syringe ultrafine 31G 5/16 inches finasteride (PROSCAR) 5 take 1 tablet by 90 Tab 3 02/12/2018 Active MG Oral Tab mouth once daily acetaminophen (TYLENOL) Take 1 Tab by 60 Tab 0 05/18/2018 Active 500 MG Oral mouth EVERY SIX TabIndications: Spasm HOURS NEEDED of back muscles (pain). insulin 70-30, MIXED - Inject 10-40 80 mL 11 06/03/2018 Active Acting, (NOVOLIN 70/30) Units beneath the (70-30) 100 UNIT/ML skin TWICE DAILY. Subcutaneous Suspension Uses 40 units in am, 10 units in pm Additional information Patient taking differently: 40 Units Subcutaneous QAM, Uses 40 units in am, 10 units in pm, Reported on 10/27/2018 11:35 AM atorvastatin (LIPITOR) 20 MG Take 1 Tab by mouth 90 Tab 3 08/31/2018 Active Oral Tab DAILY. Tamsulosin HCl (FLOMAX) 0.4 TAKE 1 CAPSULE BY MOUTH 90 Cap 3 09/27/2018 Active MG Oral Cap ONCE DAILY Aspirin 81 MG Oral Tab Take 81 mg by mouth 0 Active DAILY. carvedilol (COREG) 12.5 MG Take 0.5 Tabs by mouth 0 10/27/2018 Active Oral Tab TWICE DAILY. levothyroxine (SYNTHROID) Take 1 Tab by mouth 90 Tab 3 11/09/2018 Active 112 MCG Oral Tab BEFORE BREAKFAST. losartan (COZAAR) 25 MG Oral Take 1 Tab by mouth 90 Tab 3 11/09/2018 Active Tab DAILY. sotalol (BETAPACE) 80 MG TAKE 1/2 TABLET BY MOUTH 90 Tab 3 11/09/2018 Active Oral Tab TWICE DAILY famotidine (PEPCID) 40 MG TAKE 1 TABLET BY MOUTH 180 Tab 3 11/12/2018 Active Oral Tab TWICE A DAY ketoconazole (NIZORAL) 2 % 1 Appl by Topical route 60 g 1 02/21/2019 Active Apply externally TWICE DAILY. Apply twice CreamIndications: Groin rash a day for 4 weeks CONTOUR TEST In Vitro Strip TEST UP TO 7 TIMES A DAY 200 Strip 11 2018 Active Insulin Syringe-Needle U-100 USE FOR INJECTION TWICE 200 Each 3 04/01/2019 Active (BD INSULIN SYRINGE U/F) 31G DAILY X 5/16" 1 ML Does not apply Misc nystatin (MYCOSTATIN) 297340 APPLY TO RASH TWICE A 30 g 1 04/04/2019 Active UNIT/GM Apply externally DAY CreamIndications: Rash amoxicillin-clavulanic acid Take 1 Tab by mouth 20 Tab 0 05/18/2019 Active (AUGMENTIN 875 MG) 875-125 TWICE DAILY. 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 Rivas, February 02, 2014 with left ventricular ejection fraction 30-35% BMI 25.0-25.9,adult 01/02/2011 Overview: This patient's BMI has been calculated and is above average, and BMI management plan is completed. General patient education discussion including: obesity-related excess mortality, weight loss link to reduction of risk factors for cardiac and other diseases, importance of long-term maintenance treatment in weight loss Allergic rhinitis, cause unspecified 03/06/2008 Reactive airway disease 02/09/2008 Overview: suspected, no PFT's done Essential hypertension 04/28/2007 Other and unspecified hyperlipidemia 04/28/2007 Diabetic nephropathy 04/28/2007 Type 2 diabetes mellitus with renal manifestations 04/02/2007 Esophageal reflux 04/02/2007 Coronary atherosclerosis 06/15/1983 Overview: Myocardial infarction in 1979 and was treated at [place] in [place].He ultimately underwent bypass surgery in 1983, 02/28/02 echocardiogram: FINAL IMPRESSION: Left ventricular size is mildly increased and there is moderately severe segmental and global left ventricular systolic dysfunction with hypokinesia of the apical portion of the anterior wall, anterior septum as well as the inferior septum. There is no definite aneurysm noted. No evidence of pericardial effusion. No valvular pathology is identified. Aortic root size is at the upper limits of normal. Sleep apnea Overview: uses CPAP documented as of this encounter (statuses as of 05/19/2019) Resolved Problems Problem Noted Date Resolved Date Condylar process of mandible, closed fracture 02/02/2014 12/09/2018 Wrist fracture, right 01/26/2014 12/09/2018 Wrist pain, right 01/05/2014 12/09/2018 Hyperthyroidism 07/13/2012 12/09/2018 Follow-up surgery care 01/20/2011 10/25/2015 BPH (benign prostatic hypertrophy) 02/09/2008 06/26/2010 Overview: Replaced inactive diagnosis Acute bronchitis 04/28/2007 03/06/2008 Acute conjunctivitis, unspecified 04/02/2007 06/26/2010 documented as of this encounter (statuses as of 05/19/2019) Immunizations Name Administration Dates Next Due Adacel TdaP 04/08/2007 Influenza (IM) Preservative Free 03/04/2011, 04/14/2008 Influenza Vaccine High Dose 02/11/2019, 03/12/2018, 03/14/2017, 03/14/2016, 03/16/2015 Influenza Vaccine Whole 04/08/2007 PNEUMOCOCCAL POLYSACCHARIDE VACCINE 02/09/2014, 04/08/2007 Pneumococcal Conjugate(13 Valent) 03/14/2015 dT Vaccine 04/14/2006 documented as of this encounter Social History Tobacco Use Types Packs/Day Years Used Date Former Smoker Cigarettes 1.5 20 Quit: 1979 Smokeless Tobacco: Never Used Comments: quit 1979 Alcohol Use Drinks/Week oz/Week Comments Yes 0 Standard drinks or equivalent 0.0 occ wine Sex Assigned at Date Recorded Not on file Job Start Date Occupation Industry Not on file Not on file Not on file Travel History Travel Start Travel End No recent travel history available. documented as of this encounter Last Filed Vital Signs Vital Sign Reading Time Taken Comments Blood Pressure 100/52 05/18/2019 3:06 PM EST Pulse 70 05/18/2019 3:06 PM EST Temperature 35.6 05/18/2019 3:06 PM EST C (96 F) Respiratory Rate - - Oxygen Saturation 98% 05/18/2019 3:06 PM EST Inhaled Oxygen Concentration - - Weight 74.8 kg (165 lb) 05/18/2019 3:06 PM EST Height 167.6 cm (5' 6") 05/18/2019 3:06 PM EST Body Mass Index 26.63 05/18/2019 3:06 PM EST documented in this encounter Patient Instructions Patient InstructionsDoShelley stevens PA-C - 05/18/2019 3:00 PM EST1. Escribed augmentin 875mg 1 pill twice daily, take with food x 10 days Will send throat swab to lab for culture, will call with results Rest, gargle with warm salt water Avoid creamy foods and drinks Eat soup, drink juice, tea with honey and lemon 2. Ordered labs -- will do now -- will call with results Patient asked that we call his daughter Marguerite with results [phone] documented in this encounter Progress Notes Shelley Allan PA-C - 05/18/2019 3:00 PM EST PATIENT: Steven Frias : 1940 DATE OF SERVICE: 05/18/2019 REFERRING PRACTITIONER: Self-Referred PRIMARY CARE PROVIDER: Matt Sanchez CHIEF COMPLAINT: Chief Complaint Patient presents with Headache also states sore throat, very fatigued and feeling weak, and some throat pain for 10 days Subjective HISTORY OF PRESENT ILLNESS: Steven Frias is a 78-y.o. male who presents with sore throat, fatigue, headache x 10 days Was seen by FLORI Montilla 05/05/19, diagnosed with acute pharyngitis, prescribed amoxicillin 500mg TID x7 days Says he finished full course -- felt better for a few days Not eating much, drinking water Moving bowels and urinating without problem Is DM II, currently takes novolin 70/30 40u morning and evening Denies fever, chills, nausea, vomiting, diarrhea, chest pains, SOB Past Medical History: Diagnosis Date Acute bronchitis 04/28/2007 Acute conjunctivitis, unspecified 04/02/2007 Acute coronary syndrome (HCC) Bladder cancer (HCC) Cancer (HCC) Chronic systolic HF (heart failure) (HCC) Coronary atherosclerosis of unspecified type of vessel, tangirnaq or graft Diabetic nephropathy (HCC) 04/28/2007 Disorder of thyroid Esophageal reflux 04/02/2007 Hypertension ICD (implantable cardioverter-defibrillator), biventricular, in situ 05/21 Ischemic cardiomyopathy Old IA (myocardial infarction) Other and unspecified hyperlipidemia 04/28/2007 Second degree heart block Seizures (HCC) last in 2013 Sleep apnea uses CPAP SSS (sick sinus syndrome) (HCC) pacemaker 01/16/11 Surgery, elective 05/26/1918 s/p PPV/MP right Type II or unspecified type diabetes mellitus without mention of complication, not stated as uncontrolled 04/02/2007 Unspecified essential hypertension 04/28/2007 Wrist fracture, right 01/26/2014 Wrist pain, right 01/05/2014 Past Surgical History: Procedure Laterality Date AORTOCORONARY BYPASS NOS 1983 CATHETERIZATION HEART LEFT 06/24/2012 Procedure: CATHETERIZATION HEART LEFT; Surgeon: Miguel Diamond MD; Location : [facility]; Laterality: N/A; LT HEART CATH W/ANGIOSEAL CYSTOSCOPY NEC 02/11/12, 05/31/14 IMPLANT PERMANENT PACEMAKER INSERTION 01/16/11 Dr. Rivas, Medtronic adapter [id number], serial #[id number] IMPLANT URETERAL STIMUL 02/11/12 ureteral stent INSERTION BI-VENTRICULAR ICD 06/29/2012 Procedure: INSERTION BI-VENTRICULAR ICD; Surgeon: Reji Silvestre MD; Location: [facility]; Laterality: N/A; UPGRADE FROM DUAL PPM TO BI-V ICD W/ REMOVAL & REPLACE RV LEAD MN INS NEW/RPLCMT PRM PACEMAKR W/TRANS ELTRD ATRIAL MN REMOVAL GALLBLADDER MN TRANSURETHRAL RESEC BLADDER NECK 05/31/14 RETINA SURGERY Right 05/21/2017 s/p PPV/MP TRANSURETHRAL BALLOON DILATION OF PROSTATIC URETHRA 02/11/12 Family History Problem Relation Age of Onset Cancer Father lung No Known Problems Sister No Known Problems Brother No Known Problems Maternal Aunt No Known Problems Maternal Uncle No Known Problems Paternal Aunt No Known Problems Paternal Uncle No Known Problems Maternal Grandmother No Known Problems Maternal Grandfather No Known Problems Paternal Grandmother No Known Problems Paternal Grandfather Current Outpatient Medications Medication Sig acetaminophen (TYLENOL) 500 MG Oral Tab Take 1 Tab by mouth EVERY SIX HOURS NEEDED (pain). Aspirin 81 MG Oral Tab Take 81 mg by mouth DAILY. atorvastatin (LIPITOR) 20 MG Oral Tab Take 1 Tab by mouth DAILY. carvedilol (COREG) 12.5 MG Oral Tab Take 0.5 Tabs by mouth TWICE DAILY. CONTOUR TEST In Vitro Strip TEST UP TO 7 TIMES A DAY famotidine (PEPCID) 40 MG Oral Tab TAKE 1 TABLET BY MOUTH TWICE A DAY finasteride (PROSCAR) 5 MG Oral Tab take 1 tablet by mouth once daily hydrocortisone (ANUSOL-HC) 2.5 % Rectal Cream Place 1 Appl per rectum FOUR TIMES DAILY. insulin 70-30, MIXED - Acting, (NOVOLIN 70/30) (70-30) 100 UNIT/ML Subcutaneous Suspension Inject 10-40 Units beneath the skin TWICE DAILY. Uses 40 units in am, 10 units in pm (Patient taking differently: Inject 40 Units beneath the skin EVERY MORNING. Uses 40 units in am, 10 units in pm) Insulin Syringe-Needle U-100 (BD INSULIN SYRINGE U/F) 31G X 5/16" 1 ML Does not apply Misc USE FOR INJECTION TWICE DAILY ketoconazole (NIZORAL) 2 % Apply externally Cream 1 Appl by Topical route TWICE DAILY. Apply twice a day for 4 weeks levothyroxine (SYNTHROID) 112 MCG Oral Tab Take 1 Tab by mouth BEFORE BREAKFAST. losartan (COZAAR) 25 MG Oral Tab Take 1 Tab by mouth DAILY. MICROLET LANCETS Does not apply Misc TEST UP TO 7 TIMES A DAY DIRECTED Pamplin & Syringes Does not apply Misc by Does not apply route TWICE DAILY. NAME: BD insulin syringe ultrafine 31G 5/16 inches nitroglycerin (NITROSTAT) 0.4 MG Sublingual SL Tab Place 1 Tab under tongue EVERY FIVE MINUTES NEEDED for chest pain. nystatin (MYCOSTATIN) 575542 UNIT/GM Apply externally Cream APPLY TO RASH TWICE A DAY sotalol (BETAPACE) 80 MG Oral Tab TAKE 1/2 TABLET BY MOUTH TWICE DAILY Tamsulosin HCl (FLOMAX) 0.4 MG Oral Cap TAKE 1 CAPSULE BY MOUTH ONCE DAILY tizanidine (ZANAFLEX) 4 MG Oral Tab Take 1 Tab by mouth EVERY SIX HOURS NEEDED (neck and back pain). Current Facility-Administered Medications Medication triamcinolone acetonide (KENALOG-40) injection triamcinolone acetonide intraocular 40 MG/ML SUSP (Ordered as: TRIESENCE) No Known Allergies Social History Socioeconomic History Marital status: Spouse name: Not on file Number of children: Not on file Years of education: Not on file Highest education level: Not on file Occupational History Not on file Social Needs Financial resource strain: Not on file Food insecurity: Worry: Not on file Inability: Not on file Transportation needs: Medical: Not on file Non-medical: Not on file Tobacco Use Smoking status: Former Smoker Packs/day: 1.50 Years: 20.00 Pack years: 30.00 Types: Cigarettes Last attempt to quit: 1979 Years since quittin.9 Smokeless tobacco: Never Used Tobacco comment: quit 1979 Substance and Sexual Activity Alcohol use: Yes Alcohol/week: 0.0 standard drinks Comment: occ wine Drug use: No Sexual activity: Not on file Lifestyle Physical activity: Days per week: Not on file Minutes per session: Not on file Stress: Not on file Relationships Social connections: Talks on phone: Not on file Gets together: Not on file Attends christianity service: Not on file Active member of club or organization: Not on file Attends meetings of clubs or organizations: Not on file Relationship status: Not on file Intimate partner violence: Fear of current or ex partner: Not on file Emotionally abused: Not on file Physically abused: Not on file Forced sexual activity: Not on file Other Topics Concern Not on file Social History Narrative 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 REVIEW OF SYSTEMS: Skin: negative skin lesions Eyes: negative visual blurring Ears/Nose/Throat: positive sore throat Respiratory: positive cough Cardiovascular: negative chest pain Gastrointestinal: negative abdominal pain, constipation, diarrhea, nausea or vomiting Genitourinary: negative burning on urination, dysuria Musculoskeletal: positive arthritis/joint pain Neurologic: positive seizures Psychiatric: negative anxiety Hematologic/Lymphatic/Immunologic: negative allergies. Positive fatigue Endocrine: positive diabetes II, hypothyroidism Objective PHYSICAL EXAMINATION: VITALS: BP 100/52 | Pulse 70 | Temp 96 F (35.6 C) | Ht 5' 6" (1.676 m) | Wt 165 lb (74.8 kg) | SpO2 98% | BMI 26.63 kg/m Body mass index is 26.63 kg/m. General appearance: alert, mild distress, cooperative, oriented times 3 Skin: skin color is mild jaundice -- this is normal for patient Head: Normocephalic. No masses, lesions, tenderness or abnormalities Eyes: conjunctivae/corneas clear. PERRL, EOM's intact. Nose/Sinuses: mucosa normal, no rhinorrhea, Oropharynx: positive findings: moderate oropharyngeal erythema, no exudates Neck: Neck supple, FROM. No cervical or supraclavicular adenopathy. Lungs: Lungs clear. Chest symmetrical. Normal breath sounds. Heart: RRR. No murmur, clicks or gallops. No peripheral edema Rapid strep: negative . IMPRESSION: ICD-9-CM ICD-10-CM 1. Acute pharyngitis, unspecified etiology 462 J02.9 2. Malaise and fatigue 780.79 R53.81 CBC WITH DIFFERENTIAL R53.83 COMPREHENSIVE METABOLIC PANEL Plan PLAN: 1. Escribed augmentin 875mg 1 pill twice daily, take with food x 10 days Will send throat swab to lab for culture, will call with results Rest, gargle with warm salt water Avoid creamy foods and drinks Eat soup, drink juice, tea with honey and lemon 2. Ordered labs -- will do now -- will call with results Patient asked that we call his daughter Marguerite with results [phone] Author: Shelley Allan PA-C 05/18/2019 15:07 documented in this encounter Plan of Treatment Date Type Specialty Care Team Description 07/07/2019 Lab Internal Medicine 07/14/2019 Office Visit Internal Medicine Matt Sanchez MD [address] [place] [address] [phone] Name Type Priority Associated Diagnoses Date/Time THROAT STREP SCREEN CULTURE Lab Routine Acute pharyngitis, 05/18/2019 3: 20 PM unspecified etiology EST GLYCOHEMOGLOBIN A1C Lab Routine Type 2 diabetes 05/18/2019 3:32 PM mellitus with diabetic EST nephropathy, with long-term current use of insulin (HCC) Name Type Priority Associated Diagnoses Order Schedule THROAT STREP SCREEN Lab Routine Acute pharyngitis, 1 Occurrences starting CULTURE unspecified etiology 05/18/2019 until 11/14/2019 Health Maintenance Due Date Last Done Comments ZOSTER IMMUNIZATION SERIES 1990 (1 of 2) MEDICARE ANNUAL WELLNESS 03/20/2017 03/20/2016 (Postponed), VISIT 11/10/2014 (Previously completed) HEMOGLOBIN A1C 05/17/2019 02/15/2019, 10/09/2018, 06/23/2018, Additional history exists DEPRESSION SCREENING 10/28/2019 10/27/2018 FOOT EXAM 10/28/2019 10/27/2018, 10/27/2018, 08/11/2017, Additional history exists FALL RISK ASSESSMENT 04/04/2020 04/04/2019, 04/04/2019 Diabetic Eye Exam 02/09/2021 02/09/2019, 02/09/2019, 02/09/2019, Additional history exists PNEUMOCOCCAL 65+YRS Completed 03/14/2015, 02/09/2014, 04/08/2007 INFLUENZA VACCINE Completed 02/11/2019, 03/12/2018, 03/14/2017, Additional history exists HPV IMMUNIZATION SERIES Aged Out No longer eligible based on patient's age to complete this topic MENINGOCOCCAL VACCINE IMM Aged Out No longer eligible based on patient's age to complete this topic documented as of this encounter Goals Goal Patient Goal Associated Recent Patient-Stated? Author Type Problems Progress Blood Pressure Blood Pressure 100/52 No Daniel, < 140/90 (05/18/2019 MD Matt 3:06 PM EST) Note: This is an individualized treatment (blood pressure) goal for Steven Frias: Displayed above (on the left) is your goal for blood pressure control. Your most recent blood pressure is also shown above, on the right. You should try to achieve blood pressures that are lower than your goal listed above (on the left). Weight increase vs. 18 mo CHF 4.6 (05/18/2019 3:06 PM EST) No Matt Sanchez MD min (lbs) < 5 Note: This is an individualized treatment (congestive heart failure, CHF) goal for Steven Frias: Displayed above (on the right) is how many pounds you are in excess of your lowest weight over the past 18 months. Note that lower numbers are better. Excessive weight gain often indicates fluid reten tion and worsening heart failure. You should contact your doctor immediately if the above number is too high (above your goal, the number on the left). Glycohemoglobin A1c < 7.0 Diabetes 8.2 (02/15/2019 9:32 AM Matt Gannon MD EDT) Note: This is an individualized treatment (diabetes control, HgbA1C) goal for Steven Frias: Displayed above is your progress towards your HgbA1C goal. Your goal is shown above (on the left); your most recent HgbA1C is shown on the right. Note that lower numbers are better. Keep immunizations current Lifestyle Matt Gannon MD Note: This is an individualized lifestyle goal for Steven Frias: Please be sure to keep up-to-date on recommended immunizations. For example, this would include a yearly influenza vaccine. Immunization status can be seen by looking at the Health Maintenance sections of your [facility], Plan of Care, and any After Visit Summaries. Consume a [id number] diet Lifestyle Matt Gannon MD Note: This is an individualized lifestyle goal for Steven Frias: Please do not add additional salt to your food. Additional salt may lead to fluid retention and worsen your congestive heart failure. Take all prescribed medications as directed Self-management Matt Gannon MD Note: This is an individualized self-management goal for Steven Frias: Please take all prescribed medications as directed. 1. Do not skip doses. If you cannot afford your medications, talk with your doctor. 2. Use a pill reminder system such as a pill box if needed. Your pharmacist can help you with this. 3. Contact your Pharmacy 5 days before your medication runs out. If you cannot take your medications for any reasons, talk with your doctor. 4. Please bring all of your medication bottles and inhalers (or a list of all your medications/inhalers) with you to every visit. Potential barriers to meeting all of your care plan goals will continue to be addressed on an ongoing basis. Check your weight daily Self-management Matt Gannon MD Note: This is an individualized self-management goal for Steven Frias: Please check your weight daily. Refer to the accompanying CHF treatment goal and call your doctor immediately for further instructions on how to respond to unexpected weight gain. documented as of this encounter Implants Implanted Type Area Merchandise Support Associate Device Shelf Model / Identifier Expiration Serial / Date Lot Charlie [id number] Vib - [id number] Chest [facility], 2013 [id number] / Implanted: Qty: 1 on 06/29/2012 at [facility] [id number] / Durata Lead [id number] - [id number] Chest [facility], 02/12/2013 [id number] / Implanted: Qty: 1 on 06/29/2012 at [facility]. [id number] / Quartet [id number] - [id number] Chest [facility], 03/14/2015 [id number] / Implanted: Qty: 1 on 06/29/2012 at [facility]. [id number] / Quadra Assura Mp [id number] Thread Trimmer-D - [id number] N/A: Chest [facility] , 05/14/2018 [id number] / Implanted: Qty: 1 on 08/21/2016 by Reji Silvestre MD at [facility]. [id number] / documented as of this encounter Procedures Procedure Name Priority Date/Time Associated Comments Diagnosis CBC WITH DIFFERENTIAL Routine 05/18/2019 3:32 Malaise and fatigue Results for this PM EST procedure are in the results section. CELLAVISION Routine 05/18/2019 3:32 Malaise and fatigue Results for this DIFFERENTIAL PM EST procedure are in the results section. COMPREHENSIVE Routine 05/18/2019 3:32 Malaise and fatigue Results for this METABOLIC PANEL PM EST procedure are in the results section. STREP A ANTIGEN (AMB Routine 05/18/2019 3:20 Acute pharyngitis, Results for this POCT) PM EST unspecified procedure are in etiology the results section. documented in this encounter Results CELLAVISION DIFFERENTIAL (05/18/2019 3:32 PM EST) Seg Neutrophils 59.0 38.0 - 70.0 % [facility] Lymphocytes 20.0 (L) 21.0 - 49.0 % [facility] Monocytes 18.0 (H) 1.0 - 11.0 % [facility] Eosinophils 2.0 0.0 - 7.0 % [facility] Neutrophils Absolute 3.72 1.80 - 7.70 [facility] Lymphocytes Absolute 1.26 1.00 - 5.00 [facility] K/uL [facility] Monocytes Absolute 1.13 (H) 0.00 - 0.80 [facility] Eosinophils Absolute 0.13 0.00 - 0.50 [facility] RBC MORPHOLOGY Normal Normal [facility] WBC MORPHOLOGY Normal Normal [facility] PLT MORPHOLOGY Normal Normal [facility] Platelet Estimate Decreased (A) Normal [facility] Specimen Blood - Blood specimen (specimen) Performing Organization Address City/State[facility] Phone Number [facility] [address] [facility] [place] [address] COMPREHENSIVE METABOLIC PANEL (05/18/2019 3:32 PM EST) Sodium 141 134 - 145 mmol/L [facility] Potassium 4.3 3.5 - 5.1 mmol/L [facility] Chloride 106 98 - 107 mmol/L [facility] CO2 25 22 - 30 mmol/L [facility] Calcium 9.3 8.3 - 10.1 mg/dl [facility] Albumin 3.9 3.5 - 5.0 g/dl [facility] BUN 21 (H) 9 - 20 mg/dl [facility] Creatinine 0.8 0.8 - 1.5 mg/dl [facility] Glucose 217 (H) 70 - 99 mg/dl [facility] Total Protein 7.7 6.3 - 8.2 g/dl [facility] Total Bilirubin 0.5 0.0 - 1.1 MG/DL [facility] AST 25 17 - 59 U/L [facility] ALT 30 21 - 72 U/L [facility] Alkaline 60 40 - 150 U/L [facility] LABORATORY eGFR >60 See Interpretation [facility] Comment: Below ml/min/1.73ml GROUP Estimated GFR Interpretation: Sq LABORATORY Above 60ml/min/1.73m2 = Normal Renal Function 30-59 ml/min/1.73m2 = Stage 3 Chronic Kidney Disease 15-29 ml/min/1.73m2 = Stage 4 Chronic Kidney Disease Less than 15 ml/min/1.73m2 = Stage 5 Chronic Kidney Disease The GFR value is calculated using the Modification of Diet in Renal Disease ( MDRD) Study Equation which can be found at: https://www.kidney.org/content/dfpl-vvcyd-enekvtzf BUN/Creatinine 26 (H) 6 - 22 RATIO [facility] Anion Gap 10 3 - 11 mmol/L [facility] A/G Ratio 1.0 0.8 - 2.0 ratio [facility] Specimen Blood - Blood specimen (specimen) Performing Organization Address City/State/Zipcode Phone Number [facility] [address] [place] [place] [address] CBC WITH DIFFERENTIAL (05/18/2019 3:32 PM EST) WBC Count 6.30 4.23 - 9.07 K/uL [facility] RBC Count 4.13 (L) 4.30 - 5.89 M/UL [facility] Hemoglobin 12.1 (L) 13.7 - 17.5 g/dL [facility] Hematocrit 38.3 (L) 40.1 - 51.0 % [facility] MCV 92.7 (H) 79.0 - 92.2 FL [facility] MCH 29.3 25.7 - 32.2 PG [facility] MCHC 31.6 (L) 32.3 - 36.5 g/dL [facility] Platelet Count 104 (L) 163 - 337 K/uL [facility] MPV 12.1 9.4 - 12.4 FL [facility] RDW 13.4 11.6 - 14.4 % [facility] Neutrophil % 48.9 34.0 - 67.9 % [facility] Lymphocyte % 21.1 (L) 21.8 - 53.1 % [facility] Monocyte % 27.8 (H) 5.3 - 12.2 % [facility] Eosinophil % 1.1 0.8 - 7.0 % [facility] Basophil % 0.3 0.2 - 1.2 % [facility] nRBC % 0.0 0.0 - 0.2 % [facility] Neutrophil # 3.08 1.78 - 5.38 K/UL [facility] Lymphocyte # 1.33 1.32 - 3.57 K/UL [facility] Monocyte # 1.75 (H) 0.30 - 0.82 K/UL [facility] Eosinophil # 0.07 0.04 - 0.54 K/UL [facility] Basophil # 0.02 0.01 - 0.08 K/UL [facility] Immature Gran % 0.8 (H) 0.0 - 0.4 % [facility] Immature Gran # 0.05 (H) 0.00 - 0.03 K/uL [facility] NRBC # 0.00 0.00 - 0.12 K/uL [facility] Specimen Blood - Blood specimen (specimen) Performing Organization Address City/[facility]/Zipcode Phone Number [facility] [address] [place] [address] STREP A ANTIGEN (AMB POCT) (05/18/2019 3:20 PM EST) Strep A Antigen Negative Negative [facility] (POCT) POCT Control Line Present Present [facility] POCT Strep A Antigen Yes, Sent for [facility] Confirm (POCT) Confirmation POCT Lot Number [id number] [facility] POCT Expiration Date 11/12/19 [facility] POCT Specimen Performing Organization Address City/[facility] Phone Number [facility] [address] [place] [address] documented in this encounter Visit Diagnoses Diagnosis Acute pharyngitis, unspecified etiology - Primary Malaise and fatigue Other malaise and fatigue Type 2 diabetes mellitus with diabetic nephropathy, with long-term current use of insulin (HCC) Anemia, chronic disease Anemia of other chronic disease Essential hypertension Unspecified essential hypertension documented in this encounter Insurance Payer Benefit Plan / Subscriber ID Effective Dates Phone Address Type Group MEDICARE MEDICARE PART A xxxxxxxxxxx 2002-Present Medicare & B MEDICAID [facility] xxxxxxxx 2016-Present Medicaid [place] (Home) [address] [place], [place] (Work) [phone] documented as of this encounter
--- OUTSIDE RECORDS SUMMARY | 2019-05-26 14:36 | XMS REPORT | Summary of Care ---
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 hydrocortisone Place 1 Appl per 30 g 5 07/31/2009 Active (ANUSOL-HC) 2.5 % rectum FOUR TIMES Rectal DAILY. CreamIndications: Hemorrhoid MICROLET LANCETS Does TEST UP TO 7 200 Each 11 11/30/2014 Active not apply Misc TIMES A DAY DIRECTED tizanidine (ZANAFLEX) 4 Take 1 Tab by 90 Tab 0 10/24/2016 Active MG Oral TabIndications: mouth EVERY SIX Neck strain, initial HOURS NEEDED encounter, Acute (neck and back bilateral thoracic back pain). pain [facility] Does by Does not apply 200 Each 11 12/28/2017 Active not apply Misc route TWICE [...] Reported on 10/27/2018 11:35 AM atorvastatin (LIPITOR) Take 1 Tab by mouth 90 Tab 3 08/31/2018 Active 20 MG Oral Tab DAILY. Tamsulosin HCl (FLOMAX) TAKE 1 CAPSULE BY 90 Cap 3 09/27/2018 Active 0.4 MG Oral Cap MOUTH ONCE DAILY Aspirin 81 MG Oral Tab Take 81 mg by mouth 0 Active DAILY. carvedilol (COREG) 12.5 Take 0.5 Tabs by 0 10/27/2018 Active MG Oral Tab mouth TWICE DAILY. levothyroxine Take 1 Tab by mouth 90 Tab 3 11/09/2018 Active (SYNTHROID) 112 MCG Oral BEFORE BREAKFAST. Tab losartan (COZAAR) 25 MG Take 1 Tab by mouth 90 Tab 3 11/09/2018 Active Oral Tab DAILY. sotalol (BETAPACE) 80 MG TAKE 1/2 TABLET BY 90 Tab 3 11/09/2018 Active Oral Tab MOUTH TWICE DAILY famotidine (PEPCID) 40 TAKE 1 TABLET BY 180 Tab 3 11/12/2018 Active MG Oral Tab MOUTH TWICE A DAY ketoconazole (NIZORAL) 2 1 Appl by Topical 60 g 1 02/21/2019 Active % Apply externally route TWICE DAILY. CreamIndications: Groin Apply twice a day rash for 4 weeks CONTOUR TEST In Vitro TEST UP TO 7 TIMES A 200 Strip 11 03/15/2019 Active Strip DAY Insulin Syringe-Needle USE FOR INJECTION 200 Each 3 04/01/2019 Active U-100 (BD INSULIN TWICE DAILY SYRINGE U/F) 31G X 5/16" 1 ML Does not apply Misc nystatin (MYCOSTATIN) APPLY TO RASH TWICE 30 g 1 04/04/2019 Active 185787 UNIT/GM Apply A DAY externally CreamIndications: Rash Amoxicillin 500 MG Oral Take 1 Tab by mouth 21 Tab 0 05/05/20192018 Active TabIndications: Acute THREE TIMES DAILY pharyngitis, unspecified for 7 days. etiology Hospital, Clinic, or Other Ordered Dose Route Frequency Start Date End Date Status Facility Administered Medication triamcinolone acetonide 04/04/2016 Active (KENALOG-40) injectionIndications: Cystoid macular edema, bilateral triamcinolone acetonide 40 mg 03/31/2017 Active intraocular 40 MG/ML SUSP (Ordered as: TRIESENCE) documented as of this encounter (statuses as of 05/05/2019) Active Problems Problem Noted Date Both eyes [...] infarction in 1979 and was treated at [place] in [place].He ultimately underwent bypass surgery in 1983, 02/28/02 [...] as of this encounter (statuses as of 05/05/2019) Resolved Problems Problem Noted Date Resolved Date Condylar process of mandible, closed fracture 02/02/2014 12/09/2018 Wrist fracture, right 01/26/2014 12/09/2018 Wrist pain, right 01/05/2014 12/09/2018 Hyperthyroidism 07/13/2012 12/09/2018 Follow-up surgery care 01/20/2011 10/25/2015 BPH (benign prostatic hypertrophy) 02/09/2008 06/26/2010 Overview: Replaced inactive diagnosis Acute bronchitis 04/28/2007 03/06/2008 Acute conjunctivitis, unspecified 04/02/2007 06/26/2010 documented as of this encounter (statuses as of 05/05/2019) Immunizations Name Administration Dates Next Due Adacel [...] Sign Reading Time Taken Comments Blood Pressure 128/70 05/05/2019 1:23 PM EST Pulse 70 05/05/2019 1:23 PM EST Temperature 36.2 05/05/2019 1:23 PM EST C (97.1 F) Respiratory Rate - - Oxygen Saturation 97% 05/05/2019 1:23 PM EST Inhaled Oxygen Concentration - - Weight 77.1 kg (170 lb) 05/05/2019 1:23 PM EST Height 167.6 cm (5' 6") 05/05/2019 1:23 PM EST Body Mass Index 27.44 05/05/2019 1:23 PM EST documented in this encounter Patient Instructions Patient InstructionsEladia Poole FNP - 05/05/2019 1:20 PM ESTRest Fluids Steam may help loosen congestion Mucinex thins mucus salt water gargle as needed for sore/scratchy throat Call if symptoms fail to resolve or worsen documented in this encounter Progress Notes Eladia Poole FNP - 05/05/2019 1:20 PM EST PATIENT: Steven Frias : 1940 DATE OF SERVICE: 05/05/2019 CHIEF COMPLAINT: Chief Complaint Patient presents with Sore Throat x3 days Back Pain Subjective HISTORY OF PRESENT ILLNESS: Steven Frias is a 78-y.o. male. 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 Amoxicillin 500 MG Oral Tab Take 1 Tab by mouth THREE TIMES DAILY for 7 days. Aspirin 81 MG Oral Tab Take 81 [...] UP TO 7 TIMES A DAY DIRECTED [facility] [employer] [facility] Does not apply Misc by Does not apply route TWICE DAILY. NAME: BD insulin syringe ultrafine 31G 5/16 inches nitroglycerin (NITROSTAT) 0.4 MG Sublingual SL Tab Place 1 Tab under tongue EVERY FIVE MINUTES NEEDED for chest pain. nystatin (MYCOSTATIN) [id number] UNIT/GM Apply externally Cream APPLY TO RASH [...] use: Yes Alcohol/week: 0.0 standard drinks Comment: 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 REVIEW OF SYSTEMS: Review of Systems Constitutional: Positive for malaise/fatigue. Negative for chills and fever. HENT: Positive for ear pain and sore throat. Negative for congestion. Respiratory: Negative for cough. Musculoskeletal: Positive for myalgias and neck pain. Skin: Negative for rash. Neurological: Negative for dizziness and headaches. Objective PHYSICAL EXAM: VITALS: BP 128/70 | Pulse 70 | Temp 97.1 F (36.2 C) (Tympanic) | Ht 5' 6" (1.676 m) | Wt 170 lb (77.1 kg) | SpO2 97% | BMI 27.44 kg/m Body mass index is 27.44 kg/m. Physical Exam Vitals signs reviewed. Constitutional: General: He is not in acute distress. Appearance: Normal appearance. HENT: Head: Normocephalic and atraumatic. Right Ear: Tympanic membrane normal. Left Ear: Tympanic membrane normal. Nose: Nose normal. No congestion or rhinorrhea. Mouth/Throat: Lips: [place]. Mouth: Mucous membranes are moist. Pharynx: Posterior oropharyngeal erythema and uvula swelling present. Eyes: Extraocular Movements: Extraocular movements intact. Conjunctiva/sclera: Conjunctivae normal. Pupils: Pupils are equal, round, and reactive to light. Cardiovascular: Rate and Rhythm: Normal rate and regular rhythm. Pulmonary: Effort: Pulmonary effort is normal. Breath sounds: Normal breath sounds. Musculoskeletal: Thoracic back: He exhibits tenderness. He exhibits normal range of motion and no spasm. Back: Lymphadenopathy: Head: Right side of head: Tonsillar adenopathy present. Left side of head: Tonsillar adenopathy present. Skin: General: Skin is warm and dry. Capillary Refill: Capillary refill takes 2 to 3 seconds. Coloration: Skin is not cyanotic. Findings: No rash. Neurological: Mental Status: He is alert and oriented to person, place, and time. ASSESSMENT / IMPRESSION: ICD-9-CM ICD-10-CM 1. Acute pharyngitis, unspecified etiology 462 J02.9 Amoxicillin 500 MG Oral Tab 2. Upper back strain, initial encounter 847.1 S29.012A Plan Rest Fluids Steam may help loosen congestion Mucinex thins mucus - 2 tylenol 3 times a day as needed for pain Heat to upper back as needed salt water gargle as needed for sore/scratchy throat Call if symptoms fail to resolve or worsen Author: ORVILLE Bermeo 05/05/2019 13:40 documented in this encounter Plan of Treatment Date Type Specialty Care Team Description 05/11/2019 IPPR Ophthalmology 05/11/2019 Ocular Visit Ophthalmology Antoni Rivera MD [address] [place] [address] [phone] 07/07/2019 Lab Internal Medicine 07/14/2019 Office Visit Internal Medicine Matt Sanchez MD [address] [place] [address] [phone] Health Maintenance Due Date Last Done Comments [...] Type Problems Progress Blood Pressure Blood Pressure 128/70 No Daniel, < 140/90 (05/05/2019 MD Matt 1:23 PM EST) Note: This is an individualized treatment (blood pressure) goal for Steven Frias: Displayed above (on the left) is your goal for blood pressure control. Your most recent blood pressure is also shown above, on the right. You should try to achieve blood pressures that are lower than your goal listed above (on the left). Weight increase vs. 18 mo CHF 9.6 (05/05/2019 1:23 PM EST) Matt Gannon MD min (lbs) < 5 Note: This [...] and any After Visit Summaries. Consume a [id number] diet Lifestyle Matt Gannon MD Note: This [...] basis. Check your weight daily Self-management Matt Gannno MD Note: This is an individualized self-management goal for Steven Frias: Please check your weight daily. Refer to the accompanying CHF treatment goal and call your doctor immediately for further instructions on how to respond to unexpected weight gain. 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, 2013 [id number] / Implanted: Qty: 1 on 06/29/2012 at [facility]. [id number] / Durata Lead [id number] - [id number] Chest [employer], 02/12/2013 [id number] / Implanted: Qty: 1 on 06/29/2012 at [facility]. [id number] / Quartet [id number] - [id number] Chest [employer], 03/14/2015 [id number] / Implanted: Qty: 1 on 06/29/2012 at [facility]. [id number] / Quadra [employer] Mp [id number] Wood Patternmaker-D - [id number] N/A: Chest [employer] , 05/14/2018 [id number] / Implanted: Qty: 1 on 08/21/2016 by Reji Silvestre MD at [facility]. [id number] / documented as of this encounter Results Not on filedocumented in this encounter Visit Diagnoses Diagnosis Acute pharyngitis, unspecified etiology - Primary Upper back strain, initial encounter documented in this encounter Insurance Payer Benefit Plan / Subscriber ID Effective Dates Phone Address Type Group MEDICARE MEDICARE PART A xxxxxxxxxxx 2002-Present Medicare & B MEDICAID [facility] xxxxxxxx 2016-Present Medicaid [place] MEDICAID (Home) [address] [place] (Work) [id number] documented as of this encounter
--- OUTSIDE RECORDS SUMMARY | 2019-05-26 14:36 | XMS REPORT | Summary of Care ---
:1940 Author Organization [facility] Address [address] 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 Reason for Visit Reason Comments Groin Burn itching Cough scratchy throat Encounter Details Date Type Department Care Team Description 04/04/2019 Office Visit [place] Eladia Sanchez, Type 2 diabetes mellitus with diabetic nephropathy, with long-term current use of insulin (HCC) (Primary Dx); Practice [employer]EL[employer] Congestive heart failure, unspecified HF chronicity, unspecified heart failure type (HCC); [address] Essential hypertension; [place] [address] [place] [address] Rash; [phone] Anemia, chronic disease Allergies No Known Allergiesdocumented as of this encounter (statuses as of 04/04/2019) Medications Medication Sig Dispensed Refills Start Date [...] and back bilateral thoracic back pain). pain [employer] Does by Does not apply [...] ML Does not apply Misc nystatin (MYCOSTATIN) 809475 APPLY TO RASH TWICE A 30 g 1 04/04/2019 Active UNIT/GM Apply externally DAY CreamIndications: Rash Hospital, Clinic, or Other Ordered Dose Route Frequency Start Date End Date Status Facility Administered Medication triamcinolone acetonide 04/04/2016 Active (KENALOG-40) injectionIndications: Cystoid macular edema, bilateral triamcinolone acetonide 40 mg 03/31/2017 Active intraocular 40 MG/ML SUSP (Ordered as: TRIESENCE) documented as of this encounter (statuses as of 04/04/2019) Active Problems Problem Noted Date Both eyes [...] infarction in 1979 and was treated at [facility] in [place].He ultimately underwent bypass surgery in 1983, 02/28/02 [...] as of this encounter (statuses as of 04/04/2019) Resolved Problems Problem Noted Date Resolved Date Condylar process of mandible, closed fracture 02/02/2014 12/09/2018 Wrist fracture, right 01/26/2014 12/09/2018 Wrist pain, right 01/05/2014 12/09/2018 Hyperthyroidism 07/13/2012 12/09/2018 Follow-up surgery care 01/20/2011 10/25/2015 BPH (benign prostatic hypertrophy) 02/09/2008 06/26/2010 Overview: Replaced inactive diagnosis Acute bronchitis 04/28/2007 03/06/2008 Acute conjunctivitis, unspecified 04/02/2007 06/26/2010 documented as of this encounter (statuses as of 04/04/2019) Immunizations Name Administration Dates Next Due Adacel [...] Sign Reading Time Taken Comments Blood Pressure 118/60 04/04/2019 10:48 AM EDT Pulse 70 04/04/2019 10:48 AM EDT Temperature - - Respiratory Rate - - Oxygen Saturation 97% 04/04/2019 10:48 AM EDT Inhaled Oxygen Concentration - - Weight 76.7 kg (169 lb) 04/04/2019 10:48 AM EDT Height - - Body Mass Index 27.28 02/21/2019 9:15 AM EDT documented in this encounter Patient Instructions Patient InstructionsEladia Poole FNP - 04/04/2019 11:00 AM EDTTrial Nystatin to rash twice a day Limit carbohydrates - bread, cereal, pasta Continue current medication - Insulin as ordered Follow up with Dr Sanchez in 3 months with labs 1 week before Call if rash continuesElectronically signed by Eladia Poole FNP at 2018 11:12 AM EDT documented in this encounter Progress Notes Eladia Poole FNP - 04/04/2019 11:00 AM EDT PATIENT: Steven Frias : 1940 DATE OF SERVICE: 04/04/2019 CHIEF COMPLAINT: Chief Complaint Patient presents with Groin Burn itching Cough scratchy throat Subjective HISTORY OF PRESENT ILLNESS: Steven Frias is a 78-y.o. male. HPI Here for routine follow up - still c/o groin rash and slight cough. Labs reviewed for February - A1c indicates BG not controlled - possibly contributing to rash. [facility] uses 40 U of 70/30 every AM and adds 10 U in afternoon if BG 200 or more. 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 NAME: BD insulin syringe ultrafine 31G 5/16 inches nitroglycerin (NITROSTAT) 0.4 MG Sublingual SL Tab Place 1 Tab under tongue EVERY FIVE MINUTES NEEDED for chest pain. nystatin (MYCOSTATIN) 321840 UNIT/GM Apply externally Cream APPLY TO RASH [...] Last attempt to quit: 1979 Years since quittin.8 Smokeless tobacco: Never Used Tobacco comment: quit 1979 Substance and Sexual Activity Alcohol use: Yes Alcohol/week: 0.0 standard drinks Comment: [facility] wine Drug use: No Sexual activity: Not on file Lifestyle Physical activity: Days per week: Not on file Minutes per session: Not on file Stress: Not on file Relationships Social connections: Talks on phone: Not on file Gets together: Not on file Attends [employer] service: Not on file Active member of [...] on file Social History Narrative 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 REVIEW OF SYSTEMS: Review of Systems Constitutional: Negative for chills, fever and malaise/fatigue. HENT: Negative for congestion and sore throat. Respiratory: Positive for cough. Negative for sputum production, shortness of breath and wheezing. Cardiovascular: Negative for chest pain, palpitations and leg swelling. Gastrointestinal: Negative for diarrhea, nausea and vomiting. Skin: Positive for itching and rash. Objective PHYSICAL EXAM: VITALS: BP 118/60 | Pulse 70 | Wt 169 lb (76.7 kg) | SpO2 97% | BMI 27.28 kg/m Body mass index is 27.28 kg/m. Physical Exam Vitals signs reviewed. Constitutional: Appearance: Normal appearance. HENT: Head: Normocephalic and atraumatic. Right Ear: Tympanic membrane normal. Left Ear: Tympanic membrane normal. Nose: Nose normal. No congestion or rhinorrhea. Mouth/Throat: Lips: Spreckels. Mouth: Mucous membranes are moist. Pharynx: Oropharynx is clear. Uvula midline. No oropharyngeal exudate or posterior oropharyngeal erythema. Eyes: Conjunctiva/sclera: Conjunctivae normal. Pupils: Pupils are equal, round, and reactive to light. Neck: Musculoskeletal: Normal range of motion. Cardiovascular: Rate and Rhythm: Normal rate and regular rhythm. Pulmonary: Effort: Pulmonary effort is normal. Breath sounds: Normal breath sounds. No wheezing, rhonchi or rales. Genitourinary: Lymphadenopathy: Cervical: No cervical adenopathy. Skin: General: Skin is warm and dry. Capillary Refill: Capillary refill takes 2 to 3 seconds. Findings: Rash present. No erythema. Neurological: Mental Status: He is alert and oriented to person, place, and time. Cranial Nerves: Cranial nerves are intact. Gait: Gait is intact. Psychiatric: Mood and Affect: Mood normal. ASSESSMENT / IMPRESSION: ICD-9-CM ICD-10-CM 1. Type 2 diabetes mellitus with diabetic nephropathy, with long-term current use of insulin ([facility]) 250.40 E11.21 GLYCOHEMOGLOBIN A1C 583.81 Z79.4 V58.67 2. Congestive heart failure, unspecified HF chronicity, unspecified heart failure type ([facility]) 428.0 I50.9 3. Essential hypertension 401.9 I10 COMPREHENSIVE METABOLIC PANEL 4. Rash 782.1 R21 nystatin (MYCOSTATIN) 959139 UNIT/GM Apply externally Cream ? taz 5. Anemia, chronic disease 285.29 D63.8 CBC WITH DIFFERENTIAL Plan Trial Nystatin to rash twice a day Limit carbohydrates - bread, cereal, pasta Continue current medication Follow up with Dr Sanchez in 3 months with labs 1 week before Call if rash continues Author: ORVILLE Bermeo 04/04/2019 11:12 documented in this encounter Plan of Treatment Date Type Specialty Care Team Description 05/11/2019 IPPR Ophthalmology 05/11/2019 Ocular Visit Ophthalmology Antoni Rivera MD [address] [place] [address] [phone] 07/07/2019 Lab Internal Medicine 07/14/2019 Office Visit Internal Medicine Matt Sanchez MD [address] [place] [address] [phone] Name Type Priority Associated Diagnoses Order Schedule COMPREHENSIVE METABOLIC Lab Routine Essential hypertension Expected: 2018 PANEL (Approximate), Expires: 10/01/2019 CBC WITH DIFFERENTIAL Lab Routine Anemia, chronic disease Expected: 2018 (Approximate), Expires: 10/01/2019 GLYCOHEMOGLOBIN A1C Lab Routine Type 2 diabetes mellitus Expected: 2018 with diabetic (Approximate), nephropathy, with Expires: 04/04/2020 long-term current use of insulin (HCC) Health Maintenance Due Date Last Done Comments ZOSTER IMMUNIZATION SERIES 1990 (1 of 2) MEDICARE ANNUAL WELLNESS 03/20/2017 03/20/2016 (Postponed), VISIT 11/10/2014 (Previously completed) HEMOGLOBIN A1C 05/17/2019 02/15/2019, 10/09/2018, 06/23/2018, Additional history exists DEPRESSION SCREENING 10/28/2019 10/27/2018 FOOT EXAM 10/28/2019 10/27/2018, 10/27/2018, 08/11/2017, Additional history exists FALL RISK ASSESSMENT 04/04/2020 04/04/2019, 04/04/2019 Diabetic Eye Exam 02/09/2021 02/09/2019, 02/09/2019, 11/03/2018, Additional history exists PNEUMOCOCCAL 65+YRS Completed 03/14/2015, [...] Type Problems Progress Blood Pressure Blood Pressure 118/60 No Daniel, < 140/90 (04/04/2019 MD Matt 10:48 AM EDT) Note: This is an individualized treatment (blood pressure) goal for Steven Frias: Displayed above (on the left) is your goal for blood pressure control. Your most recent blood pressure is also shown above, on the right. You should try to achieve blood pressures that are lower than your goal listed above (on the left). Weight increase vs. 18 mo CHF 8.6 (04/04/2019 10:48 AM EDT) Matt Gannon MD min (lbs) < 5 [...] < 7.0 Diabetes 8.2 (02/15/2019 9:32 AM No Matt Sanchez MD EDT) Note: This is an individualized [...] and any After Visit Summaries. Consume a dx-axaeu-wtlz diet Lifestyle No Matt Sanchez MD Note: This is an individualized lifestyle [...] of this encounter Implants Implanted Type Area Audio Visual Collections Coordinator Device Shelf Model / Identifier Expiration Serial / Date Lot Unify [id number] Vib - [id number] Chest [employer], 2013 [id number] / Implanted: Qty: 1 on 06/29/2012 at [facility] [id number] / Durata Lead [id number] - [id number] Chest [employer], 02/12/2013 [id number] / Implanted: Qty: 1 on 06/29/2012 at [facility]. [id number] / Quartet [id number] - [id number] Chest [employer], 03/14/2015 [id number] / Implanted: Qty: 1 on 06/29/2012 at [facility] [id number] / Quadra [employer]p [id number] Salon/Spa Manager-D - [id number] N/A: Chest [employer] , 05/14/2018 [id number] / Implanted: Qty: 1 on 08/21/2016 by Reji Silvestre MD at [facility]. [id number] / documented as of this encounter Results Not on filedocumented in this encounter Visit Diagnoses Diagnosis Type 2 diabetes mellitus with diabetic nephropathy, with long-term current use of insulin (HCC) - Primary Congestive heart failure, unspecified HF chronicity, unspecified heart failure type (HCC) Essential hypertension Unspecified essential hypertension Rash Rash and other nonspecific skin eruption Anemia, chronic disease Anemia of other chronic disease documented in this encounter Insurance Payer Benefit Plan / Subscriber ID Effective Dates Phone Address Type Group MEDICARE MEDICARE PART A xxxxxxxxxxx 2002-Present Medicare & B MEDICAID [facility] xxxxxxxx 2016-Present [place] (Home) [address] [place], [place] (Work) [address] documented as of this encounter
--- NOTE | 2019-05-26 15:37 | UC ---
Dizzy HPI HPI Summary: 78 yo male with two week hx of weakness anorexic not taking solids 5-10 pound wt loss some abd pain no fever states his urine out put has dramatically decreased over the past 5 months no only voids small amt once a day has been out of bed for only a few minutes a day the past 2 weeks no fever - History Of Current Complaint Chief Complaint: UCGeneralIllness Stated Complaint: FATIGUE CAN NOT MOVE Time Seen by Provider: 05/26/19 15:01 Hx Obtained From: Patient Onset/Duration: Gradual Onset, Lasting Weeks Timing: Constant Severity Initially: Moderate Severity Currently: Severe Pain Intensity: 5 Pain Scale Used: 0-10 Numeric Character: Lightheaded, Weak Aggravating Factor(s): Nothing Alleviating Factor(s): Nothing Associated Signs And Symptoms: Negative: Nausea, Vomiting, Diaphoresis, Tinnitus , Chest Pain, SOB, Palpitations, Unsteady Gait, Visual Changes, Decreased Oral Intake, Change In Medication, Change In Diet, OTC Medications - Allergies/Home Medications Allergies/Adverse Reactions: Allergies Allergy/AdvReac Type Severity Reaction Status Date / Time No Known Allergies Allergy Verified 05/26/19 14:32 Home Medications: Home Medications Insulin ISOPH/REG 70/30 (*) [HumuLIN 70/30 (*)] 40 units SUBCUT DAILY 05/26/19 [ History Confirmed 05/26/19] Levothyroxine TAB* [Synthroid TAB*] 112 mcg PO 0800 05/26/19 [History Confirmed 05/26/19] PMH/Surg Hx/FS Hx/Imm Hx Previously Healthy: Yes Endocrine History: Diabetes Cardiovascular History: Hypertension, Pacemaker/ICD Cancer History: Other Other Cancer History: bladder CA - Surgical History Surgical History: Yes Surgery Procedure, Year, and Place: CABGX3 1983. GALLBLADDER SURGERY 1994? [facility] [place]. PACEMAKER 2010 [facility] [place]. TURBT 2011 [facility] [place] - Family History Known Family History: Positive: Cardiac Disease Negative: Blood Disorder - Social History Alcohol Use: None Substance Use Type: None Smoking Status (MU): Former Smoker Type: Cigarettes Amount Used/How Often: 10 CIGS DAILY X 20 YEARS When Did the Patient Quit Smoking/Using Tobacco: 1979 Review of Systems All Other Systems Reviewed And Are Negative: Yes Constitutional: Positive: Fatigue Skin: Positive: Negative Eyes: Positive: Negative ENT: Positive: Negative Respiratory: Positive: Negative Cardiovascular: Positive: Negative Gastrointestinal: Positive: Abdominal Pain Genitourinary: Positive: Other - decreased UOP Motor: Positive: Weakness Neurovascular: Positive: Negative Musculoskeletal: Positive: Negative Neurological: Positive: Negative Psychological: Positive: Negative Physical Exam Triage Information Reviewed: Yes Appearance: Other: - pale Vital Signs: Initial Vital Signs Temp 98.0 F 05/26/19 14:27 Pulse 70 05/26/19 14:27 Resp 16 05/26/19 14:27 BP 108/67 05/26/19 14:27 Pulse Ox 97 05/26/19 14:27 Vital Signs Reviewed: Yes Eyes: Positive: Other: - pale conj ENT: Negative: Hearing grossly normal, Nasal congestion, Nasal drainage, Muffled voice, Hoarse voice Dental: Negative: Dental Fracture @ Neck: Positive: Supple, Nontender Respiratory: Positive: Lungs clear, Normal breath sounds, No respiratory distress, No accessory muscle use Cardiovascular: Positive: RRR, No Murmur Abdomen Description: Negative: Nontender - tender LLQ>RLQ Bowel Sounds: Positive: Present Musculoskeletal: Positive: No Edema Neurological: Positive: Alert Psychological Exam: Normal Skin Exam: Other - pale Diagnostics - Laboratory Lab Results: BS 108 - EKG Summary of EKG Findings: AV dual paced rhythm Dizzy Course/Dx - Differential Dx/Diagnosis Provider Diagnosis: Fatigue, Weakness Discharge ED - Sign-Out/Discharge Documenting (check all that apply): Patient Departure All imaging exams completed and their final reports reviewed: No Studies - Discharge Plan Condition: Fair Disposition: HOME Patient Education Materials: Weakness (ED), Fatigue (ED) Referrals: Matt Sanchez MD [Primary Care Provider] - 1 Day Additional Instructions: I am very concerned about your symptoms and examination I think you should go to the EMERGENCY ROOM for evaluation of your symptoms You are fatigued You have decreased urinary output You have lost weight You have lost your appetite You are having some back pain and you abdomen is a little tender Blood work is pending Try to get in to see your MD tomorrow Go to the ER should your symptoms worsen or new symptoms develop You could potentially have a serious/life threatening process causing your symptoms - Billing Disposition and Condition Condition: FAIR Disposition: Home
[2019-05-26 15:45] VITALS: BP 119/67
[2019-05-26 19:08] LABS: Calcium 9.1 mg/dL (8.6-10.3); Potassium 3.8 mmol/L (3.5-5.0); Total Bilirubin 0.5 mg/dL (0.2-1.0)
[2019-05-26 19:14] LABS: Albumin/Globulin Ratio 1.3 (1-3); BUN/Creatinine Ratio 19.3 (8-20); EGFR African American 101.3 (>60); EGFR Non-African American 83.8 (>60)
[2019-05-26 21:13] LABS: ABS Lymphocytes 1.4 10^3/ul (1.0-4.8); ABS Monocytes 1.7 10^3/ul (0-0.8); ABS Neutrophils 2.1 10^3/ul (1.5-7.7); Eosinophil % 0.7 %; Hematocrit 37 % (42-52); Hemoglobin 12.6 g/dL (14.0-18.0); Lymphocyte % 26.7 %; Mean Corpuscular HGB Conc 34 g/dL (31-36); Mean Corpuscular Hemoglobin 30 pg (27-31); Mean Corpuscular Volume 89 fL (80-94); Mean Platelet Volume 9.7 fL (7.4-10.4); Nucleated Red Blood Cells % 0.1; Platelet Count 90 10^3/uL (150-450); Red Blood Count 4.18 10^6 /uL (4.18-5.48); Red Cell Distribution Width 14 % (10-15); White Blood Count 5.2 10^3/uL (3.5-10.8)
== END 2019-05-26 16:20 | disposition home or self-care (01) ==
LOC: UCEAST 14:20
DX: R53.83 Other fatigue (principal); R53.1 Weakness; E11.9 Type 2 diabetes mellitus without complications; I10 Essential (primary) hypertension; Z79.4 Long term (current) use of insulin; Z95.0 Presence of cardiac pacemaker; Z85.51 Personal history of malignant neoplasm of bladder; Z87.891 Personal history of nicotine dependence
CPT/HCPCS: 36415; 80053; 85025; 93005; 99211; G0463

== ENCOUNTER 2019-05-27 04:41 | Emergency (ER) | payer MEDICARE, MEDICAID ==
[2019-05-27] MEDS ORDERED: NS 0.9% 1000 ML** 1,000 ML IV ONE (06:06)
--- NOTE | 2019-05-27 06:06 | ED ---
Abdominal Pain/Male - HPI Summary HPI Summary: Patient is a 78-year-old male who presents emergency department for ongoing constipation and abdominal pain 1-2 weeks. Patient also notes that he has been passing blood per rectum. [facility] and was referred to the ER. Patient denies such symptoms of chest pain, shortness of breath, fever, dysuria. Denies abdominal surgeries. Past medical history of hypothyroidism, BPH, CAD, diabetes. Patient is a poor historian. Symptoms are moderate in severity. No current modifying factors. - History of Current Complaint Chief Complaint: EDAbdPain Stated Complaint: ABD PAIN PER EMS Time Seen by Provider: 05/27/19 05:36 Hx Obtained From: Patient Pain Intensity: 8 - Allergies/Home Medications Allergies/Adverse Reactions: Allergies Allergy/AdvReac Type Severity Reaction Status Date / Time No Known Allergies Allergy Verified 05/26/19 14:32 PMH/Surg Hx/FS Hx/Imm Hx Previously Healthy: Yes Endocrine/Hematology History: Reports: Hx Diabetes, Hx Thyroid Disease - HYPO AFTER RADIATION FOR GRAVES Cardiovascular History: Reports: Hx Coronary Artery Disease - CABGX3 1983, Hx Hypertension, Hx Pacemaker/ICD, Other Cardiovascular Problems/Disorders - PACEMAKER Denies: Hx Angina, Hx Congestive Heart Failure Respiratory History: Denies: Hx Asthma, Hx Chronic Obstructive Pulmonary Disease (COPD) GI History: Reports: Other GI Disorders - ABD. PAIN History: Reports: Other Problems/Disorders - BLADDER CANCER Denies: Hx Renal Disease Sensory History: Reports: Hx Cataracts - removed Denies: Hx Contacts or Glasses, Hx Hearing Aid Opthamlomology History: Reports: Hx Cataracts - removed Denies: Hx Contacts or Glasses Neurological History: Denies: Hx Dementia, Hx Headaches, Hx Seizures Psychiatric History: Denies: Hx Anxiety, Hx Depression, Hx Substance Abuse - Cancer History Cancer Type, Location and Year: BLADDER - Surgical History Surgery Procedure, Year, and Place: CABGX3 1983. GALLBLADDER SURGERY 1994? [facility] [place]. PACEMAKER 2010 [facility] [place]. TURBT 2011 [facility] [place] Hx Anesthesia Reactions: No - Immunization History Date of Tetanus Vaccine: unk Date of Influenza Vaccine: 2016 Infectious Disease History: No Infectious Disease History: Denies: Hx Hepatitis, Hx Human Immunodeficiency Virus (HIV), History Other Infectious Disease, Traveled Outside the [place] in Last 30 Days - Family History Known Family History: Positive: Cardiac Disease, Non-Contributory Negative: Blood Disorder - Social History Occupation: Retired Lives: Alone Alcohol Use: None Substance Use Type: Reports: None Hx Tobacco Use: No Smoking Status (MU): Former Smoker Type: Cigarettes Amount Used/How Often: 10 CIGS DAILY X 20 YEARS Review of Systems Constitutional: Negative Negative: Fever Cardiovascular: Negative Negative: Chest Pain Respiratory: Negative Negative: Shortness Of Breath, Cough Positive: Abdominal Pain, Other - Constipation. Blood per rectum. . Negative: Vomiting, Diarrhea, Nausea Genitourinary: Negative Negative: dysuria Neurological: Negative All Other Systems Reviewed And Are Negative: Yes Physical Exam Triage Information Reviewed: Yes Vital Signs On Initial Exam: Initial Vitals Temp Pulse Resp BP Pulse Ox 98.1 F 68 18 132/67 97 05/27/19 04:42 05/27/19 04:42 05/27/19 04:42 05/27/19 04:42 05/27/19 04:42 Vital Signs Reviewed: Yes Appearance: Positive: Thin - Pt. lying in bed in NAD. Appears tired/weak but nontoxic. Skin: Positive: Warm, Dry Head/Face: Positive: Normal Head/Face Inspection Eyes: Positive: Normal, EOMI, MAURISIO Neck: Positive: Supple Respiratory/Lung Sounds: Positive: Clear to Auscultation, Breath Sounds Present Cardiovascular: Positive: Normal, RRR Abdomen Description: Positive: Nontender, Soft Neurological: Positive: Normal, CN Intact II-III Psychiatric: Positive: Affect/Mood Appropriate Procedures - Sedation Patient Received Moderate/Deep Sedation with Procedure: No Diagnostics - Vital Signs Vital Signs Temp Pulse Resp BP Pulse Ox 05/27/19 04:42 98.1 F 68 18 132/67 97 - Laboratory Result Diagrams: 05/27/19 06:15 05/27/19 06:15 Lab Statement: Any lab studies that have been ordered have been reviewed, and results considered in the medical decision making process. Abdominal Pain Male Course/Dx - Course Course Of Treatment: Pt. presenting with ongoing abd. pain and constipation. Afebrile with stable VS. Labs and ct scan ordered for further evaluation. ECG done at 0625 shows a paced rhythm of 70bpm, similar to prior tracing. Labs are unremarkable. U/A negative for infection. CT scan negative for acute findings per radiology. Pt. had a bowel movement while in ED and is feeing better. There was no gross blood in stool, occult stool positive. Results discusssed with pt. Advised to call pcp today for close f.u. Will return to er if sxs change or worsen. Pt. understands and agrees with plan. - Diagnoses Differential Diagnosis/HQI/PQRI: ACS, Appendicitis, Bowel Obstruction, Constipation, Diverticulitis, Hepatitis, Urinary Tract Infection Provider Diagnoses: Abdominal pain Discharge ED - Sign-Out/Discharge Documenting (check all that apply): Patient Departure - Discharge Plan Condition: Improved Disposition: HOME Patient Education Materials: Constipation (ED), Acute Abdominal Pain (ED) Referrals: Matt Sanchez MD [Primary Care Provider] - Additional Instructions: Call PCP today for a follow up appointment on Thursday Increase fluids and fiber in diet Continue home medications as directed Return to ER if symptoms change or worsen - Billing Disposition and Condition Condition: IMPROVED Disposition: Home
[2019-05-27] MEDS ORDERED: Iodixanol* (CONTRAST) 320 MG/ML 100 ML SDV IV ONE (06:14)
[2019-05-27 06:32] LABS: ABS Eosinophils 0.1 10^3/ul (0-0.6); ABS Lymphocytes 1.2 10^3/ul (1.0-4.8); ABS Monocytes 1.9 10^3/ul (0-0.8); ABS Neutrophils 3.6 10^3/ul (1.5-7.7); Eosinophil % 0.8 %; Hematocrit 36 % (42-52); Hemoglobin 12.4 g/dL (14.0-18.0); Lymphocyte % 17.2 %; Mean Corpuscular HGB Conc 35 g/dL (31-36); Mean Corpuscular Hemoglobin 31 pg (27-31); Mean Corpuscular Volume 89 fL (80-94); Mean Platelet Volume 9.2 fL (7.4-10.4); Nucleated Red Blood Cells % 0.1; Platelet Count 80 10^3/uL (150-450); Red Blood Count 3.99 10^6 /uL (4.18-5.48); Red Cell Distribution Width 14 % (10-15); White Blood Count 6.7 10^3/uL (3.5-10.8)
[2019-05-27 06:35] LABS: Activated Partial Thrombo Time 35.8 seconds (26.0-38.0); INR 1.38 (0.82-1.09)
[2019-05-27 06:45] LABS: Albumin 3.8 g/dL (3.2-5.2); Albumin/Globulin Ratio 1.3 (1-3); BUN/Creatinine Ratio 19.8 (8-20); C Reactive Protein 2.31 mg/L (<8.01); Calcium 8.9 mg/dL (8.6-10.3); EGFR African American 104.1 (>60); Total Bilirubin 0.5 mg/dL (0.2-1.0); Total Protein 6.8 g/dL (6.4-8.9)
[2019-05-27 06:47] LABS: Troponin I 0.01 ng/mL (<0.03)
[2019-05-27 08:18] LABS: Urine Appearance Clear; Urine Bilirubin Negative (Negative); Urine Blood Negative (Negative); Urine Color Yellow; Urine Glucose Negative (Negative); Urine Ketones Negative (Negative); Urine Nitrite Negative (Negative); Urine Protein Negative (Negative); Urine Specific Gravity 1.016 (1.010-1.030); Urine Urobilinogen Negative (Negative)
[2019-05-27 10:22] VITALS: BP 140/71
== END 2019-05-27 10:18 | disposition home or self-care (01) ==
LOC: ED 04:41
DX: R10.9 Unspecified abdominal pain (principal); Z87.891 Personal history of nicotine dependence; E11.8 Type 2 diabetes mellitus with unspecified complications; I25.10 Atherosclerotic heart disease of native coronary artery without angina pectoris; I10 Essential (primary) hypertension; Z85.51 Personal history of malignant neoplasm of bladder; Z95.0 Presence of cardiac pacemaker; Z95.810 Presence of automatic (implantable) cardiac defibrillator; N40.0 Benign prostatic hyperplasia without lower urinary tract symptoms
CPT/HCPCS: 36415; 74177; 80053; 81003; 82272; 83605; 83690; 84484; 85025; 85610; 85730; 86140; 93005; 96360; 96361; 99284; Q9967

== ENCOUNTER 2020-01-02 19:51 | Observation (INO) ==
[2020-01-02 20:58] LABS: Hematocrit 33 % (42-52); Hemoglobin 11.4 g/dL (14.0-18.0); Mean Corpuscular HGB Conc 34 g/dL (31-36); Mean Corpuscular Hemoglobin 30 pg (27-31); Mean Corpuscular Volume 89 fL (80-94); Mean Platelet Volume 8.8 fL (7.4-10.4); Platelet Count 101 10^3/uL (150-450); Red Blood Count 3.77 10^6 /uL (4.18-5.48); Red Cell Distribution Width 15 % (10-15); White Blood Count 9.5 10^3/uL (3.5-10.8)
[2020-01-02 21:18] LABS: Albumin 3.7 g/dL (3.2-5.2); Albumin/Globulin Ratio 1.2 (1-3); BUN/Creatinine Ratio 26.7 (8-20); EGFR African American 103.8 (>60); EGFR Non-African American 85.8 (>60); Globulin 3.1 g/dL (2-4); Magnesium 1.9 mg/dL (1.9-2.7); Potassium 4.3 mmol/L (3.5-5.0); Total Bilirubin 0.4 mg/dL (0.2-1.0); Total Protein 6.8 g/dL (6.4-8.9)
[2020-01-02 21:22] LABS: Troponin I 0.01 ng/mL (<0.03)
[2020-01-02 21:36] LABS: ABS Eosinophils 0.2 10^3/ul (0-0.6); ABS Lymphocytes 1.5 10^3/ul (1.0-4.8); ABS Monocytes 2.6 10^3/ul (0-0.8); Eosinophil % 1.8 %; Lymphocyte % 15.7 %
[2020-01-02] MEDS ORDERED: Enoxaparin 40 MG/0.4 ML SYR(*) SUBCUT SCH (23:00)
[2020-01-02 23:39] LABS: TSH (Thyroid Stimulating Horm) 0.89 mcIU/mL (0.34-5.60)
[2020-01-03 07:05] LABS: BUN/Creatinine Ratio 26.9 (8-20); Calcium 8.7 mg/dL (8.6-10.3); EGFR African American 116.2 (>60)
[2020-01-03 07:09] LABS: ABS Eosinophils 0.1 10^3/ul (0-0.6); ABS Lymphocytes 1.7 10^3/ul (1.0-4.8); ABS Monocytes 2.1 10^3/ul (0-0.8); Eosinophil % 1.7 %; Hematocrit 35 % (42-52); Lymphocyte % 22.9 %; Mean Corpuscular HGB Conc 35 g/dL (31-36); Mean Corpuscular Hemoglobin 31 pg (27-31); Mean Corpuscular Volume 89 fL (80-94); Mean Platelet Volume 8.9 fL (7.4-10.4); Platelet Count 91 10^3/uL (150-450); Red Blood Count 3.91 10^6 /uL (4.18-5.48); Red Cell Distribution Width 15 % (10-15); White Blood Count 7.3 10^3/uL (3.5-10.8)
[2020-01-03] MEDS ORDERED: Insulin ISOPH/REG 70/30 SUBCUT SCH ×2 (09:00→13:00)
[2020-01-03 11:28] VITALS: BP 139/63
[2020-01-03] MEDS ORDERED: Perflutren Lipid Microsphere 3 ML VIAL ONE (11:48)
[2020-01-03] MEDS ORDERED: Regadenoson 0.4 MG/5 ML SYRINGE ONE (11:57)
== END 2020-01-03 15:50 | disposition home or self-care (01) ==
LOC: MEDTELE 19:51 → ED 19:51 → MEDTELE 01-03 01:56
PROVIDERS: ADMIT Nurse Practitioner Family; ATTEND Internal Medicine

== ENCOUNTER 2020-07-02 22:51 | Inpatient (IN) ==
[2020-07-02 23:38] LABS: Hematocrit 35 % (42-52); Hemoglobin 11.5 g/dL (14.0-18.0); Mean Corpuscular HGB Conc 33 g/dL (31-36); Mean Corpuscular Hemoglobin 29 pg (27-31); Mean Corpuscular Volume 89 fL (80-94); Mean Platelet Volume 9.2 fL (7.4-10.4); Platelet Count 131 10^3/uL (150-450); Red Blood Count 3.94 10^6 /uL (4.18-5.48); Red Cell Distribution Width 15 % (10-15); White Blood Count 18.2 10^3/uL (3.5-10.8)
[2020-07-02 23:55] LABS: Albumin 3.5 g/dL (3.2-5.2); Albumin/Globulin Ratio 0.8 (1-3); BUN/Creatinine Ratio 30.4 (8-20); Calcium 8.9 mg/dL (8.6-10.3); EGFR African American 114.5 (>60); EGFR Non-African American 94.6 (>60); Globulin 4.2 g/dL (2-4); Potassium 3.8 mmol/L (3.5-5.0); Total Bilirubin 0.7 mg/dL (0.2-1.0); Total Protein 7.7 g/dL (6.4-8.9)
[2020-07-02 23:57] LABS: Troponin I 0.01 ng/mL (<0.03)
[2020-07-03 00:10] LABS: ABS Basophils 0.2 10^3/ul (0-0.2); ABS Eosinophils 0.1 10^3/ul (0-0.6); ABS Lymphocytes 1.2 10^3/ul (1.0-4.8); ABS Monocytes 4.9 10^3/ul (0-0.8); ABS Neutrophils 11.9 10^3/ul (1.5-7.7); Eosinophil % 0.4 %; Lymphocyte % 6.5 %
[2020-07-03] MEDS ORDERED: Iodixanol (CONTRAST) 320 MG/ML 100 ML SDV IV ONE (00:41)
[2020-07-03] MEDS ORDERED: Dextrose 50% Syringe 50 ml 25 GM/50 ML SYRINGE IV PUSH PRN (03:51)
[2020-07-03 04:54] LABS: C Reactive Protein 122.95 mg/L (<8.01)
[2020-07-03 06:42] LABS: HDL Cholesterol 14.6 mg/dL
[2020-07-03] MEDS ORDERED: Isosorbide Mononit ER 30mg TAB PO SCH ×2 (09:00)
[2020-07-03] MEDS: Enoxaparin 40 MG/0.4 ML SYR SUBCUT SCH (09:01)
[2020-07-03 09:22] LABS: Hematocrit 37 % (42-52); Mean Corpuscular HGB Conc 33 g/dL (31-36); Mean Corpuscular Hemoglobin 29 pg (27-31); Mean Corpuscular Volume 89 fL (80-94); Mean Platelet Volume 9.2 fL (7.4-10.4); Platelet Count 129 10^3/uL (150-450); Red Blood Count 4.12 10^6 /uL (4.18-5.48); Red Cell Distribution Width 15 % (10-15); White Blood Count 15.7 10^3/uL (3.5-10.8)
[2020-07-03 09:32] LABS: ABS Eosinophils 0.1 10^3/ul (0-0.6); ABS Lymphocytes 1.1 10^3/ul (1.0-4.8); ABS Neutrophils 10.4 10^3/ul (1.5-7.7); Eosinophil % 0.7 %; Lymphocyte % 7.2 %
[2020-07-03 09:36] LABS: Anion Gap 7 mmol/L (2-11); BUN/Creatinine Ratio 28.2 (8-20); Blood Urea Nitrogen 22 mg/dL (6-24); CO2 Carbon Dioxide 27 mmol/L (22-32); Calcium 8.6 mg/dL (8.6-10.3); Chloride 102 mmol/L (101-111); EGFR African American 116.2 (>60); Glucose 315 mg/dL (70-100); Potassium 4.1 mmol/L (3.5-5.0); Sodium 136 mmol/L (135-145); Troponin I 0.01 ng/mL (<0.03)
[2020-07-03 14:31] LABS: Urine Appearance Clear; Urine Bilirubin Negative (Negative); Urine Blood 1+ (Negative); Urine Color Yellow; Urine Glucose 2+(150 mg/dL) (Negative); Urine Ketones 1+ (Negative); Urine Nitrite Negative (Negative); Urine Protein 1+(30 mg/dL) (Negative); Urine Specific Gravity 1.043 (1.010-1.030); Urine Urobilinogen Positive (Negative)
[2020-07-03 14:35] LABS: Urine Bacteria Absent (Absent); Urine Red Blood Cell 1+(3-5/hpf) (Absent); Urine Squamous Epithelial Cell Present (Absent); Urine White Blood Cell Absent (Absent)
[2020-07-03 14:57] LABS: TSH Ultra Thyroid Stim Horm 1.43 mcIU/mL (0.34-5.60)
[2020-07-03] MEDS: Isosorbide Mononit ER 30mg TAB PO SCH (21:14)
[2020-07-03 21:39] LABS: Total Iron Binding Capacity 175 mcg/dL (250-450); Transferrin 125 mg/dL (203-362)
[2020-07-03 21:41] LABS: % Iron Saturation 11 % (15-55); Iron < 20 ug/dL (50-212); Unsaturated Iron Binding < 160 ug/dL
[2020-07-03 22:05] LABS: Ferritin 176.2 ng/mL (24-336)
[2020-07-04 07:12] LABS: Hematocrit 36 % (42-52); Hemoglobin 11.6 g/dL (14.0-18.0); Mean Corpuscular HGB Conc 33 g/dL (31-36); Mean Corpuscular Hemoglobin 29 pg (27-31); Mean Corpuscular Volume 89 fL (80-94); Mean Platelet Volume 9.1 fL (7.4-10.4); Platelet Count 123 10^3/uL (150-450); Red Blood Count 4.01 10^6 /uL (4.18-5.48); Red Cell Distribution Width 15 % (10-15)
[2020-07-04 07:29] LABS: Albumin 3.2 g/dL (3.2-5.2); Albumin/Globulin Ratio 0.8 (1-3); BUN/Creatinine Ratio 23.6 (8-20); C Reactive Protein 118.68 mg/L (<8.01); Calcium 8.4 mg/dL (8.6-10.3); EGFR African American 99.8 (>60); EGFR Non-African American 82.5 (>60); Globulin 3.9 g/dL (2-4); Magnesium 1.7 mg/dL (1.9-2.7); Total Bilirubin 0.6 mg/dL (0.2-1.0); Total Protein 7.1 g/dL (6.4-8.9)
[2020-07-04] MEDS ORDERED: Magnesium Sulfate 2 gm BAG 2 GM/50 ML BAG IVPB ONE (07:38)
[2020-07-04 08:24] LABS: ABS Eosinophils 0.1 10^3/ul (0-0.6); ABS Lymphocytes 1.3 10^3/ul (1.0-4.8); ABS Monocytes 3.9 10^3/ul (0-0.8); ABS Neutrophils 11.7 10^3/ul (1.5-7.7); Eosinophil % 0.6 %; Lymphocyte % 7.4 %
[2020-07-04] MEDS: Aspirin EC 81 mg TAB.EC (enteric coated) PO SCH (08:49)
[2020-07-04] MEDS: Isosorbide Mononit ER 30mg TAB PO SCH ×2 (08:49→20:56)
[2020-07-04] MEDS: cefTRIAXone 1 gm/50 mL NS BAG 1 GM/50 ML BAG IVPB SCH (08:49)
[2020-07-04] MEDS ORDERED: Insulin GLARGINE 100 un/ml 10 ml VIAL SUBCUT SCH (09:00)
[2020-07-04] MEDS ORDERED: Iron Sucrose 200 MG in NS 0.9% 100 ml BAG 100 ML IVPB ONE (09:30)
[2020-07-04] MEDS: Insulin GLARGINE 100 un/ml 10 ml VIAL SUBCUT SCH (10:44)
[2020-07-04] MEDS: Enoxaparin 40 MG/0.4 ML SYR SUBCUT SCH (10:45)
[2020-07-04] MEDS: DOXYcycline 100 MG in NS 0.9% 250 ml 250 ML IVPB SCH ×2 (10:56→20:56)
[2020-07-04 17:47] LABS: Influenza A Molecular Negative (Negative); Influenza B Molecular Negative (Negative)
[2020-07-05 05:52] LABS: Hematocrit 34 % (42-52); Hemoglobin 11.2 g/dL (14.0-18.0); Mean Corpuscular HGB Conc 33 g/dL (31-36); Mean Corpuscular Hemoglobin 29 pg (27-31); Mean Corpuscular Volume 88 fL (80-94); Mean Platelet Volume 8.9 fL (7.4-10.4); Platelet Count 117 10^3/uL (150-450); Red Blood Count 3.85 10^6 /uL (4.18-5.48); Red Cell Distribution Width 15 % (10-15); White Blood Count 13.9 10^3/uL (3.5-10.8)
[2020-07-05 06:07] LABS: BUN/Creatinine Ratio 23.9 (8-20); EGFR African American 129.5 (>60); Magnesium 1.9 mg/dL (1.9-2.7); Potassium 3.9 mmol/L (3.5-5.0)
[2020-07-05 06:11] LABS: Troponin I 0.01 ng/mL (<0.03)
[2020-07-05] MEDS: cefTRIAXone 1 gm/50 mL NS BAG 1 GM/50 ML BAG IVPB SCH (07:43)
[2020-07-05 07:51] LABS: ABS Eosinophils 0.2 10^3/ul (0-0.6); ABS Lymphocytes 1.8 10^3/ul (1.0-4.8); ABS Monocytes 3.3 10^3/ul (0-0.8); ABS Neutrophils 8.4 10^3/ul (1.5-7.7); Eosinophil % 1.4 %
[2020-07-05] MEDS: Aspirin EC 81 mg TAB.EC (enteric coated) PO SCH (08:15)
[2020-07-05] MEDS: Isosorbide Mononit ER 30mg TAB PO SCH (08:16)
[2020-07-05] MEDS: Insulin GLARGINE 100 un/ml 10 ml VIAL SUBCUT SCH (08:21)
[2020-07-05] MEDS: Enoxaparin 40 MG/0.4 ML SYR SUBCUT SCH (08:23)
[2020-07-05] MEDS: DOXYcycline 100 MG in NS 0.9% 250 ml 250 ML IVPB SCH (09:48)
[2020-07-05 11:08] VITALS: BP 115/50
== END 2020-07-05 13:00 | disposition home or self-care (01) | DRG 194 ==
LOC: ED 22:51 → MED 22:51 → ED 07-03 04:10
PROVIDERS: ADMIT Student in an Organized Health Care Education/Training Program; ATTEND Hospitalist

== ENCOUNTER 2020-10-23 16:56 | Inpatient (IN) ==
[2020-10-23] MEDS ORDERED: NS 0.9% 1000 ml BAG 1,000 ML IV ONE (17:20)
[2020-10-23 18:01] LABS: ABS Basophils 0.1 10^3/ul (0-0.2); ABS Lymphocytes 0.9 10^3/ul (1.0-4.8); ABS Monocytes 2.7 10^3/ul (0-0.8); Hematocrit 41 % (42-52); Hemoglobin 12.7 g/dL (14.0-18.0); Lymphocyte % 4.8 %; Mean Corpuscular HGB Conc 31 g/dL (31-36); Mean Corpuscular Hemoglobin 30 pg (27-31); Mean Corpuscular Volume 95 fL (80-94); Mean Platelet Volume 11.2 fL (7.4-10.4); Platelet Count 89 10^3/uL (150-450); Red Blood Count 4.29 10^6 /uL (4.18-5.48); Red Cell Distribution Width 16 % (10-15); White Blood Count 18.6 10^3/uL (3.5-10.8)
[2020-10-23 18:37] LABS: Urine Appearance Clear; Urine Bilirubin Negative (Negative); Urine Blood 1+ (Negative); Urine Color Yellow; Urine Glucose 3+(>=500 mg/dL) (Negative); Urine Ketones 2+ (Negative); Urine Nitrite Negative (Negative); Urine Protein Negative (Negative); Urine Specific Gravity 1.022 (1.002-1.030); Urine Urobilinogen Negative (Negative)
[2020-10-23] MEDS ORDERED: Piperacillin/Tazobac ADVAN 3.375 GM in NS 0.9% 100 ml BAG 100 ML IVPB ONE (18:42)
[2020-10-23 18:48] LABS: Urine Bacteria Absent (Absent); Urine Red Blood Cell Trace(0-2/hpf) (Absent); Urine Squamous Epithelial Cell Present (Absent); Urine White Blood Cell Absent (Absent)
[2020-10-23 19:05] LABS: TSH Ultra Thyroid Stim Horm 0.62 mcIU/mL (0.34-5.60)
[2020-10-23 19:07] LABS: Free T4 1.48 ng/dL (0.61-1.12)
[2020-10-23] MEDS ORDERED: Vancomycin 1,500 MG in NS 0.9% 250 ml 250 ML IVPB ONE (19:30)
[2020-10-23] MEDS ORDERED: NS 0.9% 250 ml 250 ML ONE (19:46)
[2020-10-23 20:28] LABS: Potassium 4.8 mmol/L (3.5-5.0)
[2020-10-23 20:29] LABS: Calcium 9.6 mg/dL (8.6-10.3); EGFR African American 57.7 (>60); EGFR Non-African American 47.7 (>60)
[2020-10-23 20:30] LABS: Albumin 4.1 g/dL (3.2-5.2); Albumin/Globulin Ratio 1.1 (1-3); Globulin 3.8 g/dL (2-4); Total Bilirubin 0.7 mg/dL (0.2-1.0); Total Protein 7.9 g/dL (6.4-8.9)
[2020-10-23] MEDS ORDERED: Lactated Ringers 500 ml BAG 500 ML IV ONE (20:47)
[2020-10-23] MEDS ORDERED: Zosyn per Pharmacy NOTE FOLLOW UP SCH (21:00)
[2020-10-23] MEDS ORDERED: Insulin Infusion 100unit/100mL 100 UNIT/100 ML BAG IV SCH (22:00)
[2020-10-23] MEDS ORDERED: Lactated Ringers 1000 ml BAG 1,000 ML IV SCH (22:00)
[2020-10-23 22:17] LABS: C Reactive Protein 27.6 mg/L (<8.01)
[2020-10-23 23:38] LABS: Calcium 9.3 mg/dL (8.6-10.3); EGFR Non-African American 45.5 (>60); Potassium 3.4 mmol/L (3.5-5.0)
[2020-10-23] MEDS: Enoxaparin 40 MG/0.4 ML SYR SUBCUT SCH (23:55)
[2020-10-24] MEDS: KCL 20 MEQ/100 ML IVPREMIX 20 MEQ/100 ML BAG IV SCH ×4 (00:21→15:57)
[2020-10-24 00:37] LABS: Anion Gap 19 mmol/L (2-11); Blood Urea Nitrogen 49 mg/dL (6-24); CO2 Carbon Dioxide 19 mmol/L (22-32); Calcium 9.1 mg/dL (8.6-10.3); Chloride 101 mmol/L (101-111); EGFR African American 58.2 (>60); EGFR Non-African American 48.1 (>60); Glucose 467 mg/dL (70-100); Glucose Confirmatory 467 mg/dL (70-100); Potassium 3.4 mmol/L (3.5-5.0); Sodium 139 mmol/L (135-145)
[2020-10-24] MEDS ORDERED: Potassium Chloride IV 20 MEQ in Lactated Ringers 1000 ml BAG 1,000 ML IVPB SCH (01:00)
[2020-10-24 01:34] LABS: Anion Gap 16 mmol/L (2-11); Blood Urea Nitrogen 46 mg/dL (6-24); CO2 Carbon Dioxide 20 mmol/L (22-32); Calcium 9.2 mg/dL (8.6-10.3); Chloride 102 mmol/L (101-111); EGFR African American 59.6 (>60); EGFR Non-African American 49.3 (>60); Glucose 418 mg/dL (70-100); Glucose Confirmatory 418 mg/dL (70-100); Potassium 3.3 mmol/L (3.5-5.0); Sodium 138 mmol/L (135-145)
[2020-10-24 03:42] LABS: Urine Creatinine Concentration 109.07 mg/dL; Urine Sodium Concentration < 18 mmol/L
[2020-10-24 04:13] LABS: Hematocrit 39 % (42-52); Hemoglobin 12.6 g/dL (14.0-18.0); Mean Corpuscular HGB Conc 33 g/dL (31-36); Mean Corpuscular Hemoglobin 29 pg (27-31); Mean Corpuscular Volume 90 fL (80-94); Mean Platelet Volume 10.1 fL (7.4-10.4); Platelet Count 85 10^3/uL (150-450); Red Blood Count 4.31 10^6 /uL (4.18-5.48); Red Cell Distribution Width 15 % (10-15); White Blood Count 27.4 10^3/uL (3.5-10.8)
[2020-10-24 04:14] LABS: Potassium 3.6 mmol/L (3.5-5.0)
[2020-10-24 04:15] LABS: Calcium 9.1 mg/dL (8.6-10.3); EGFR African American 66.8 (>60); EGFR Non-African American 55.2 (>60)
[2020-10-24 04:16] LABS: INR 1.29 (0.82-1.09)
[2020-10-24] MEDS ORDERED: Insulin GLARGINE 100 un/ml 10 ml VIAL SUBCUT ONE (04:23)
[2020-10-24] MEDS ORDERED: 1/2 SODIUM CHLORIDE IV SCH (05:00)
[2020-10-24] MEDS ORDERED: POTASSIUM CHLORIDE IV SCH (05:00)
[2020-10-24] MEDS ORDERED: DEXTROSE IV SCH (05:00)
[2020-10-24] MEDS: cefTRIAXone 1 gm/50 mL NS BAG 1 GM/50 ML BAG IVPB SCH (05:26)
[2020-10-24 05:35] LABS: ABS Basophils 0.2 10^3/ul (0-0.2); ABS Neutrophils 20.2 10^3/ul (1.5-7.7); Lymphocyte % 3.6 %
[2020-10-24 08:18] LABS: Calcium 8.6 mg/dL (8.6-10.3); EGFR African American 84.3 (>60); EGFR Non-African American 69.7 (>60); Potassium 4.1 mmol/L (3.5-5.0)
[2020-10-24] MEDS: Isosorbide Mononit ER 30mg TAB PO SCH (08:46)
[2020-10-24] MEDS ORDERED: Metoprolol Tartrate 5 mg VIAL 5 ml VIAL (1 mg/ml) IV SCH (10:00)
[2020-10-24] MEDS ORDERED: D5LR 1000 ml BAG 1,000 ML IV SCH ×2 (10:00→12:18)
[2020-10-24] MEDS: Famotidine IV 10 MG/ML 2 ml VIAL (20 mg) IV SLOW PU SCH ×2 (10:09→20:58)
[2020-10-24] MEDS ORDERED: Dextrose 50% Syringe 50 ml 25 GM/50 ML SYRINGE IV PUSH PRN (13:28)
[2020-10-24 15:39] LABS: EGFR African American 93.7 (>60); EGFR Non-African American 77.4 (>60); Potassium 4.8 mmol/L (3.5-5.0)
[2020-10-24 16:31] LABS: Thyroid Peroxidase Antibodies 1.08 IU/mL (<9)
[2020-10-24 16:44] LABS: Thyroglobulin Antibody II 0.5 IU/mL (<4.0)
[2020-10-24] MEDS: Enoxaparin 40 MG/0.4 ML SYR SUBCUT SCH (20:57)
[2020-10-24] MEDS ORDERED: Insulin GLARGINE 100 un/ml 10 ml VIAL SUBCUT SCH (21:00)
[2020-10-24 21:26] LABS: Glucose Confirmatory 402 mg/dL (70-100)
[2020-10-25 05:30] LABS: ABS Lymphocytes 1.1 10^3/ul (1.0-4.8); ABS Monocytes 3.9 10^3/ul (0-0.8); ABS Neutrophils 13.1 10^3/ul (1.5-7.7); Hematocrit 41 % (42-52); Hemoglobin 13.7 g/dL (14.0-18.0); Lymphocyte % 6.3 %; Mean Corpuscular HGB Conc 33 g/dL (31-36); Mean Corpuscular Hemoglobin 30 pg (27-31); Mean Corpuscular Volume 90 fL (80-94); Mean Platelet Volume 10.7 fL (7.4-10.4); Platelet Count 65 10^3/uL (150-450); Red Cell Distribution Width 16 % (10-15); White Blood Count 18.1 10^3/uL (3.5-10.8)
[2020-10-25 05:40] LABS: Calcium 8.7 mg/dL (8.6-10.3); EGFR African American 106.7 (>60); EGFR Non-African American 88.1 (>60); Phosphorus 1.4 mg/dL (2.5-5.0); Potassium 4.3 mmol/L (3.5-5.0)
[2020-10-25] MEDS: cefTRIAXone 1 gm/50 mL NS BAG 1 GM/50 ML BAG IVPB SCH (08:33)
[2020-10-25] MEDS: Famotidine IV 10 MG/ML 2 ml VIAL (20 mg) IV SLOW PU SCH ×2 (08:35→20:36)
[2020-10-25] MEDS: Isosorbide Mononit ER 30mg TAB PO SCH (08:39)
[2020-10-25] MEDS: Enoxaparin 40 MG/0.4 ML SYR SUBCUT SCH (20:36)
[2020-10-25] MEDS: Insulin GLARGINE 100 un/ml 10 ml VIAL SUBCUT SCH (20:52)
[2020-10-26 07:58] LABS: Hematocrit 44 % (42-52); Hemoglobin 14.7 g/dL (14.0-18.0); Mean Corpuscular HGB Conc 34 g/dL (31-36); Mean Corpuscular Hemoglobin 30 pg (27-31); Mean Corpuscular Volume 90 fL (80-94); Mean Platelet Volume 10.8 fL (7.4-10.4); Platelet Count 70 10^3/uL (150-450); Red Blood Count 4.88 10^6 /uL (4.18-5.48); Red Cell Distribution Width 16 % (10-15); White Blood Count 12.7 10^3/uL (3.5-10.8)
[2020-10-26 08:12] LABS: Calcium 9.2 mg/dL (8.6-10.3); EGFR African American 123.5 (>60); Potassium 3.7 mmol/L (3.5-5.0)
[2020-10-26 08:31] LABS: ABS Eosinophils 0.1 10^3/ul (0-0.6); ABS Lymphocytes 1.4 10^3/ul (1.0-4.8); ABS Monocytes 3.7 10^3/ul (0-0.8); ABS Neutrophils 7.4 10^3/ul (1.5-7.7); Eosinophil % 0.8 %; Lymphocyte % 11.3 %
[2020-10-26] MEDS: Isosorbide Mononit ER 30mg TAB PO SCH (09:33)
[2020-10-26] MEDS: Famotidine IV 10 MG/ML 2 ml VIAL (20 mg) IV SLOW PU SCH ×2 (09:34→22:00)
[2020-10-26] MEDS: cefTRIAXone 1 gm/50 mL NS BAG 1 GM/50 ML BAG IVPB SCH (09:34)
[2020-10-26] MEDS ORDERED: KCL 10 MEQ/50 ML IVPREMIX 10 MEQ/50 ML BAG IV ONE (13:16)
[2020-10-26] MEDS: Insulin GLARGINE 100 un/ml 10 ml VIAL SUBCUT SCH (22:00)
[2020-10-26] MEDS: Enoxaparin 40 MG/0.4 ML SYR SUBCUT SCH (22:04)
[2020-10-27 07:18] LABS: ABS Eosinophils 0.1 10^3/ul (0-0.6); ABS Lymphocytes 1.5 10^3/ul (1.0-4.8); ABS Monocytes 2.9 10^3/ul (0-0.8); ABS Neutrophils 5.6 10^3/ul (1.5-7.7); Eosinophil % 0.8 %; Hematocrit 43 % (42-52); Hemoglobin 14.3 g/dL (14.0-18.0); Lymphocyte % 14.9 %; Mean Corpuscular HGB Conc 34 g/dL (31-36); Mean Corpuscular Hemoglobin 30 pg (27-31); Mean Corpuscular Volume 90 fL (80-94); Mean Platelet Volume 11.1 fL (7.4-10.4); Nucleated Red Blood Cells % 0.1; Platelet Count 60 10^3/uL (150-450); Red Blood Count 4.78 10^6 /uL (4.18-5.48); Red Cell Distribution Width 16 % (10-15)
[2020-10-27 07:43] LABS: Calcium 8.8 mg/dL (8.6-10.3); EGFR African American 131.6 (>60); EGFR Non-African American 108.8 (>60); Potassium 3.4 mmol/L (3.5-5.0)
[2020-10-27] MEDS: Isosorbide Mononit ER 30mg TAB PO SCH (09:36)
[2020-10-27] MEDS: Famotidine IV 10 MG/ML 2 ml VIAL (20 mg) IV SLOW PU SCH ×2 (09:36→20:55)
[2020-10-27] MEDS: KCL 10 MEQ/50 ML IVPREMIX 10 MEQ/50 ML BAG IV SCH ×2 (10:59→12:11)
[2020-10-27] MEDS: Insulin GLARGINE 100 un/ml 10 ml VIAL SUBCUT SCH (20:59)
[2020-10-27] MEDS: Senna TAB 8.6 mg TAB PO PRN (20:59)
[2020-10-28 05:31] LABS: Calcium 8.5 mg/dL (8.6-10.3); EGFR African American 121.6 (>60); EGFR Non-African American 100.5 (>60); Magnesium 1.7 mg/dL (1.9-2.7); Potassium 3.3 mmol/L (3.5-5.0)
[2020-10-28] MEDS: Isosorbide Mononit ER 30mg TAB PO SCH (09:13)
[2020-10-28] MEDS: Famotidine IV 10 MG/ML 2 ml VIAL (20 mg) IV SLOW PU SCH (09:14)
[2020-10-28] MEDS ORDERED: Potassium Chloride LIQUID 20 MEQ/15 ML LIQUID PO ONE (09:29)
[2020-10-28] MEDS: Senna TAB 8.6 mg TAB PO PRN (20:31)
[2020-10-28] MEDS: Insulin GLARGINE 100 un/ml 10 ml VIAL SUBCUT SCH (20:31)
[2020-10-28] MEDS ORDERED: Potassium Chlor 10 meq TAB PO ONE (21:35)
[2020-10-29] MEDS: Isosorbide Mononit ER 30mg TAB PO SCH (09:06)
[2020-10-29 10:03] LABS: Calcium 8.5 mg/dL (8.6-10.3); EGFR African American 136.1 (>60); EGFR Non-African American 112.5 (>60); Magnesium 1.8 mg/dL (1.9-2.7); Potassium 3.3 mmol/L (3.5-5.0)
[2020-10-29] MEDS ORDERED: Magnesium Sulfate 2 gm BAG 2 GM/50 ML BAG IVPB ONE (11:24)
[2020-10-29] MEDS: KCL 20 MEQ/100 ML IVPREMIX 20 MEQ/100 ML BAG IV SCH ×2 (14:32→17:21)
[2020-10-29] MEDS: Insulin GLARGINE 100 un/ml 10 ml VIAL SUBCUT SCH (19:58)
[2020-10-29] MEDS: Senna TAB 8.6 mg TAB PO PRN (20:38)
[2020-10-29 23:30] LABS: Calcium 8.2 mg/dL (8.6-10.3); EGFR African American 129.5 (>60); Potassium 3.9 mmol/L (3.5-5.0)
[2020-10-30 05:15] LABS: Calcium 8.4 mg/dL (8.6-10.3); EGFR Non-African American 120.6 (>60); Potassium 3.6 mmol/L (3.5-5.0)
[2020-10-30] MEDS: Isosorbide Mononit ER 30mg TAB PO SCH (11:14)
[2020-10-30] MEDS: Insulin GLARGINE 100 un/ml 10 ml VIAL SUBCUT SCH (21:04)
[2020-10-31 06:24] LABS: Hematocrit 35 % (42-52); Hemoglobin 11.7 g/dL (14.0-18.0); Mean Corpuscular HGB Conc 34 g/dL (31-36); Mean Corpuscular Hemoglobin 30 pg (27-31); Mean Corpuscular Volume 89 fL (80-94); Mean Platelet Volume 10.6 fL (7.4-10.4); Platelet Count 91 10^3/uL (150-450); Red Blood Count 3.91 10^6 /uL (4.18-5.48); Red Cell Distribution Width 15 % (10-15); White Blood Count 15.9 10^3/uL (3.5-10.8)
[2020-10-31 06:34] LABS: Calcium 8.4 mg/dL (8.6-10.3); EGFR African American 138.5 (>60); EGFR Non-African American 114.4 (>60); Potassium 3.6 mmol/L (3.5-5.0)
[2020-10-31 08:02] LABS: ABS Eosinophils 0.1 10^3/ul (0-0.6); ABS Lymphocytes 1.7 10^3/ul (1.0-4.8); ABS Monocytes 7.2 10^3/ul (0-0.8); ABS Neutrophils 6.8 10^3/ul (1.5-7.7); Eosinophil % 0.7 %; Lymphocyte % 10.7 %
[2020-10-31 08:36] LABS: Magnesium 1.9 mg/dL (1.9-2.7)
[2020-10-31] MEDS: Isosorbide Mononit ER 30mg TAB PO SCH (08:59)
[2020-10-31 09:16] LABS: C Reactive Protein 68.06 mg/L (<8.01)
[2020-10-31 09:26] LABS: Urine Appearance Cloudy; Urine Bilirubin Negative (Negative); Urine Blood 2+ (Negative); Urine Color Yellow; Urine Glucose Negative (Negative); Urine Ketones Negative (Negative); Urine Nitrite Negative (Negative); Urine Protein Negative (Negative); Urine Specific Gravity 1.015 (1.002-1.030); Urine Urobilinogen Negative (Negative)
[2020-10-31 09:36] LABS: Urine Bacteria 1+ (Absent); Urine Red Blood Cell 3+(>10/hpf) (Absent); Urine Squamous Epithelial Cell Present (Absent); Urine White Blood Cell 2+(11-20/hpf) (Absent)
[2020-10-31] MEDS: cefTRIAXone 1 gm/50 mL NS BAG 1 GM/50 ML BAG IVPB SCH (10:46)
[2020-10-31] MEDS: Insulin GLARGINE 100 un/ml 10 ml VIAL SUBCUT SCH (21:41)
[2020-11-01 05:45] LABS: Hematocrit 38 % (42-52); Hemoglobin 12.5 g/dL (14.0-18.0); Mean Corpuscular HGB Conc 33 g/dL (31-36); Mean Corpuscular Hemoglobin 30 pg (27-31); Mean Corpuscular Volume 90 fL (80-94); Mean Platelet Volume 9.7 fL (7.4-10.4); Platelet Count 117 10^3/uL (150-450); Red Blood Count 4.23 10^6 /uL (4.18-5.48); Red Cell Distribution Width 15 % (10-15); White Blood Count 22.5 10^3/uL (3.5-10.8)
[2020-11-01 07:16] LABS: ABS Neutrophils 13.5 10^3/ul (1.5-7.7)
[2020-11-01 07:20] LABS: ABS Basophils 0.2 10^3/ul (0-0.2)
[2020-11-01] MEDS: Isosorbide Mononit ER 30mg TAB PO SCH (11:17)
[2020-11-01] MEDS: cefTRIAXone 1 gm/50 mL NS BAG 1 GM/50 ML BAG IVPB SCH (15:00)
[2020-11-01] MEDS ORDERED: Fluconazole 200 MG IVPREMIX 200 MG/100 ML BAG IVPB SCH (19:30)
[2020-11-01] MEDS: Insulin GLARGINE 100 un/ml 10 ml VIAL SUBCUT SCH (21:25)
[2020-11-02 08:15] LABS: Hematocrit 39 % (42-52); Hemoglobin 12.8 g/dL (14.0-18.0); Mean Corpuscular HGB Conc 33 g/dL (31-36); Mean Corpuscular Hemoglobin 30 pg (27-31); Mean Corpuscular Volume 89 fL (80-94); Mean Platelet Volume 9.8 fL (7.4-10.4); Platelet Count 131 10^3/uL (150-450); Red Blood Count 4.31 10^6 /uL (4.18-5.48); Red Cell Distribution Width 15 % (10-15); White Blood Count 27.2 10^3/uL (3.5-10.8)
[2020-11-02] MEDS: Isosorbide Mononit ER 30mg TAB PO SCH (09:12)
[2020-11-02] MEDS: cefTRIAXone 1 gm/50 mL NS BAG 1 GM/50 ML BAG IVPB SCH (09:13)
[2020-11-02 09:39] LABS: ABS Lymphocytes 1.5 10^3/ul (1.0-4.8); ABS Monocytes 12.6 10^3/ul (0-0.8); ABS Neutrophils 13.1 10^3/ul (1.5-7.7); Eosinophil % 0.1 %; Lymphocyte % 5.5 %
[2020-11-02] MEDS: Insulin GLARGINE 100 un/ml 10 ml VIAL SUBCUT SCH (21:36)
[2020-11-03 07:53] LABS: Hematocrit 36 % (42-52); Hemoglobin 12.2 g/dL (14.0-18.0); Mean Corpuscular HGB Conc 34 g/dL (31-36); Mean Corpuscular Hemoglobin 30 pg (27-31); Mean Corpuscular Volume 89 fL (80-94); Mean Platelet Volume 9.2 fL (7.4-10.4); Platelet Count 123 10^3/uL (150-450); Red Blood Count 4.11 10^6 /uL (4.18-5.48); Red Cell Distribution Width 15 % (10-15); White Blood Count 23.2 10^3/uL (3.5-10.8)
[2020-11-03 08:15] LABS: Calcium 8.2 mg/dL (8.6-10.3); EGFR African American 129.5 (>60); Potassium 3.7 mmol/L (3.5-5.0)
[2020-11-03] MEDS: Isosorbide Mononit ER 30mg TAB PO SCH (08:35)
[2020-11-03] MEDS: cefTRIAXone 1 gm/50 mL NS BAG 1 GM/50 ML BAG IVPB SCH (08:36)
[2020-11-03 08:47] LABS: ABS Basophils 0.1 10^3/ul (0-0.2); ABS Lymphocytes 1.1 10^3/ul (1.0-4.8); ABS Monocytes 8.7 10^3/ul (0-0.8); ABS Neutrophils 13.3 10^3/ul (1.5-7.7); Eosinophil % 0.2 %; Lymphocyte % 4.7 %
[2020-11-03] MEDS: Insulin GLARGINE 100 un/ml 10 ml VIAL SUBCUT SCH (20:57)
[2020-11-04 06:04] LABS: Hematocrit 35 % (42-52); Hemoglobin 11.8 g/dL (14.0-18.0); Mean Corpuscular HGB Conc 33 g/dL (31-36); Mean Corpuscular Hemoglobin 30 pg (27-31); Mean Corpuscular Volume 89 fL (80-94); Mean Platelet Volume 9.8 fL (7.4-10.4); Platelet Count 124 10^3/uL (150-450); Red Blood Count 3.99 10^6 /uL (4.18-5.48); Red Cell Distribution Width 15 % (10-15); White Blood Count 16.6 10^3/uL (3.5-10.8)
[2020-11-04 06:28] LABS: C Reactive Protein 149.91 mg/L (<8.01); Calcium 8.2 mg/dL (8.6-10.3); EGFR African American 129.5 (>60); Potassium 3.3 mmol/L (3.5-5.0)
[2020-11-04 07:48] LABS: ABS Eosinophils 0.1 10^3/ul (0-0.6); ABS Lymphocytes 1.5 10^3/ul (1.0-4.8); ABS Monocytes 5.6 10^3/ul (0-0.8); ABS Neutrophils 9.3 10^3/ul (1.5-7.7); Eosinophil % 0.6 %
[2020-11-04] MEDS: Isosorbide Mononit ER 30mg TAB PO SCH (08:01)
[2020-11-04] MEDS ORDERED: Potassium Chlor 20 meq TAB.ER PO ONE (08:22)
[2020-11-04] MEDS ORDERED: Potassium Chloride LIQUID 20 MEQ/15 ML LIQUID PO ONE (09:30)
[2020-11-04] MEDS: Insulin GLARGINE 100 un/ml 10 ml VIAL SUBCUT SCH (21:19)
[2020-11-05] MEDS ORDERED: Docusate LIQ 100 MG/10 ML UDC PO PRN (13:00)
[2020-11-05] MEDS: Isosorbide Mononit ER 30mg TAB PO SCH (18:40)
[2020-11-05] MEDS: Insulin GLARGINE 100 un/ml 10 ml VIAL SUBCUT SCH (21:34)
[2020-11-05] MEDS: Famotidine SUSP ORALSYR 8 MG/ML PO SCH (21:40)
[2020-11-06] MEDS: Senna TAB 8.6 mg TAB PO PRN (05:18)
[2020-11-06 06:04] LABS: Hematocrit 39 % (42-52); Hemoglobin 12.9 g/dL (14.0-18.0); Mean Corpuscular HGB Conc 34 g/dL (31-36); Mean Corpuscular Hemoglobin 30 pg (27-31); Mean Corpuscular Volume 89 fL (80-94); Platelet Count 126 10^3/uL (150-450); Red Blood Count 4.32 10^6 /uL (4.18-5.48); Red Cell Distribution Width 16 % (10-15); White Blood Count 10.1 10^3/uL (3.5-10.8)
[2020-11-06 06:23] LABS: Albumin 2.8 g/dL (3.2-5.2); Albumin/Globulin Ratio 0.7 (1-3); C Reactive Protein 89.55 mg/L (<8.01); Calcium 8.7 mg/dL (8.6-10.3); EGFR African American 123.5 (>60); Globulin 3.8 g/dL (2-4); Potassium 3.3 mmol/L (3.5-5.0); Total Bilirubin 0.5 mg/dL (0.2-1.0); Total Protein 6.6 g/dL (6.4-8.9)
[2020-11-06 07:18] LABS: ABS Eosinophils 0.2 10^3/ul (0-0.6); ABS Lymphocytes 1.3 10^3/ul (1.0-4.8); ABS Monocytes 3.3 10^3/ul (0-0.8); ABS Neutrophils 5.4 10^3/ul (1.5-7.7); Eosinophil % 1.5 %; Lymphocyte % 12.5 %
[2020-11-06 07:20] LABS: Erythrocyte Sed Rate 56 mm/Hr (0-19)
[2020-11-06 09:01] LABS: Magnesium 1.9 mg/dL (1.9-2.7)
[2020-11-06] MEDS: KCL 20 MEQ/100 ML IVPREMIX 20 MEQ/100 ML BAG IV SCH ×3 (09:45→19:28)
[2020-11-06] MEDS: Famotidine SUSP ORALSYR 8 MG/ML PO SCH ×2 (09:46→20:50)
[2020-11-06] MEDS: Isosorbide Mononit ER 30mg TAB PO SCH (09:46)
[2020-11-06] MEDS ORDERED: Senna TAB 8.6 mg TAB PO PRN (18:48)
[2020-11-06] MEDS ORDERED: Magnesium CITRATE LIQ 300 ML BTL PO ONE (18:49)
[2020-11-06] MEDS: Insulin GLARGINE 100 un/ml 10 ml VIAL SUBCUT SCH (20:50)
[2020-11-06] MEDS: Magnesium Hydroxide LIQ 30 ML UDC PO SCH (20:50)
[2020-11-06] MEDS ORDERED: Senna TAB 8.6 mg TAB PO SCH (21:00)
[2020-11-07 07:43] LABS: Hematocrit 33 % (42-52); Hemoglobin 11.3 g/dL (14.0-18.0); Mean Corpuscular HGB Conc 34 g/dL (31-36); Mean Corpuscular Hemoglobin 30 pg (27-31); Mean Corpuscular Volume 89 fL (80-94); Mean Platelet Volume 9.2 fL (7.4-10.4); Platelet Count 122 10^3/uL (150-450); Red Blood Count 3.76 10^6 /uL (4.18-5.48); Red Cell Distribution Width 15 % (10-15); White Blood Count 10.4 10^3/uL (3.5-10.8)
[2020-11-07 07:56] LABS: Calcium 8.5 mg/dL (8.6-10.3); EGFR African American 138.5 (>60); EGFR Non-African American 114.4 (>60); Potassium 3.8 mmol/L (3.5-5.0)
[2020-11-07 08:45] LABS: ABS Eosinophils 0.1 10^3/ul (0-0.6); ABS Lymphocytes 1.5 10^3/ul (1.0-4.8); ABS Neutrophils 5.8 10^3/ul (1.5-7.7); Eosinophil % 1.2 %; Lymphocyte % 14.2 %
[2020-11-07] MEDS ORDERED: Polyethylene Glycol 3350 17 GM PACKET PO SCH (09:00)
[2020-11-07 12:24] VITALS: BP 130/70
[2020-11-07] MEDS: Magnesium Hydroxide LIQ 30 ML UDC PO SCH (12:26)
[2020-11-07] MEDS: Isosorbide Mononit ER 30mg TAB PO SCH (12:28)
[2020-11-07] MEDS: Famotidine SUSP ORALSYR 8 MG/ML PO SCH (12:29)
[2020-11-07] MEDS ORDERED: Insulin GLARGINE 100 un/ml 10 ml VIAL SUBCUT SCH (21:00)
== END 2020-11-07 14:50 | DRG 637 ==
LOC: ED 16:56 → ICU 22:17 → MEDTELE 10-24 13:58
PROVIDERS: ADMIT Internal Medicine; ATTEND Hospitalist